=== PATIENT | female | born 1955 | race Caucasian/White ===

== ENCOUNTER → 2019-08-16 08:14 | Outpatient (BNVA) | payer MEDICARE, MEDICAID, SELFPAY | PROVIDERS: Family Provider Family Medicine; PCP Family Medicine; Visit Provider Podiatrist Foot & Ankle Surgery | DX: M79.673 Pain in unspecified foot (principal); E11.42 Type 2 diabetes mellitus with diabetic polyneuropathy; Z79.4 Long term (current) use of insulin; L84 Corns and callosities; D23.72 Other benign neoplasm of skin of left lower limb, including hip | CPT/HCPCS: 88305 ==

== ENCOUNTER → 2019-08-28 10:58 | Outpatient (BNVA) | payer MEDICARE, MEDICAID, SELFPAY | PROVIDERS: Family Provider Family Medicine; PCP Family Medicine; Visit Provider Specialist | DX: G62.9 Polyneuropathy, unspecified (principal); M48.061 Spinal stenosis, lumbar region without neurogenic claudication; E11.40 Type 2 diabetes mellitus with diabetic neuropathy, unspecified; F17.210 Nicotine dependence, cigarettes, uncomplicated | CPT/HCPCS: 99214 ==

== ENCOUNTER → 2019-09-04 13:53 | Outpatient (BNVA) | payer MEDICARE, MEDICAID, SELFPAY | PROVIDERS: Family Provider Family Medicine; PCP Family Medicine; Visit Provider Nurse Practitioner Psychiatric/Mental Health | DX: F31.81 Bipolar II disorder (principal); F43.12 Post-traumatic stress disorder, chronic; F60.3 Borderline personality disorder; F17.210 Nicotine dependence, cigarettes, uncomplicated | CPT/HCPCS: 80164; 99214 ==

== ENCOUNTER 2019-09-20 15:51 | Outpatient (CLI) | payer MEDICARE, MEDICAID, SELFPAY | END 2019-09-20 15:52 | disposition home or self-care (01) | LOC: SPT 16:00 | PROVIDERS: Family Provider Family Medicine; PCP Family Medicine; Visit Provider Podiatrist Foot & Ankle Surgery | DX: L97.522 Non-pressure chronic ulcer of other part of left foot with fat layer exposed (principal) | CPT/HCPCS: L4361 ==

== ENCOUNTER → 2019-11-21 08:10 | Outpatient (BNVA) | payer MEDICARE, MEDICAID, SELFPAY | PROVIDERS: Family Provider Family Medicine; PCP Family Medicine; Visit Provider Nurse Practitioner Psychiatric/Mental Health | DX: F31.81 Bipolar II disorder (principal); F43.12 Post-traumatic stress disorder, chronic; F60.3 Borderline personality disorder; F17.210 Nicotine dependence, cigarettes, uncomplicated; Z79.899 Other long term (current) drug therapy | CPT/HCPCS: 99214 ==

== ENCOUNTER → 2020-01-03 08:18 | Outpatient (BNVA) | payer MEDICARE, MEDICAID, SELFPAY | PROVIDERS: Family Provider Family Medicine; PCP Family Medicine; Visit Provider Nurse Practitioner Psychiatric/Mental Health | DX: F31.81 Bipolar II disorder (principal); F43.12 Post-traumatic stress disorder, chronic; F60.3 Borderline personality disorder; F17.210 Nicotine dependence, cigarettes, uncomplicated; Z79.899 Other long term (current) drug therapy | CPT/HCPCS: 99214 ==

== ENCOUNTER → 2020-01-31 13:07 | Outpatient (BNVA) | payer MEDICARE, MEDICAID, SELFPAY | PROVIDERS: Family Provider Family Medicine; PCP Family Medicine; Visit Provider Nurse Practitioner Psychiatric/Mental Health | DX: F31.81 Bipolar II disorder (principal); F43.12 Post-traumatic stress disorder, chronic; F60.3 Borderline personality disorder; F17.210 Nicotine dependence, cigarettes, uncomplicated; Z79.899 Other long term (current) drug therapy; F41.1 Generalized anxiety disorder | CPT/HCPCS: 99214 ==

== ENCOUNTER → 2020-02-27 13:15 | Outpatient (BNVA) | payer MEDICARE, MEDICAID, SELFPAY | PROVIDERS: Family Provider Family Medicine; PCP Family Medicine; Visit Provider Specialist | DX: E11.42 Type 2 diabetes mellitus with diabetic polyneuropathy (principal) | CPT/HCPCS: 99213 ==

== ENCOUNTER 2020-03-13 12:08 | Outpatient (CLI) | payer MEDICARE, MEDICAID, SELFPAY ==
--- NOTE | 2020-03-13 12:23 | MM_ITS ---
WS: [id number] BILATERAL DIGITAL SCREENING MAMMOGRAPHY WITH CAD CLINICAL INFORMATION: SCREEN HISTORY: Screening mammogram. No current complaints. COMPARISON: December 06, 2018 TECHNIQUE: Bilateral CC and MLO views. FINDINGS: Scattered fibroglandular densities bilaterally. No suspicious focal mass, asymmetry, calcifications, or architectural distortion. No evidence of malignancy. Lucent centered calcifications. Stable intram ammary lymph nodes right axillary tail. MM/[place] [id number] IMPRESSION: BI-RADS: 2-Benign FOLLOW UP: 1 Year Follow-up Recommend return to annual screening mammography.
== END 2020-03-13 12:09 | disposition home or self-care (01) ==
LOC: RADSHAW 12:11
PROVIDERS: PCP Nurse Practitioner Family; Visit Provider Nurse Practitioner Family
DX: Z12.31 Encounter for screening mammogram for malignant neoplasm of breast (principal)
CPT/HCPCS: 77067

== ENCOUNTER → 2020-04-01 09:20 | Outpatient (BNVA) | payer MEDICARE, MEDICAID, SELFPAY | PROVIDERS: PCP Nurse Practitioner Family; Visit Provider Nurse Practitioner Psychiatric/Mental Health | DX: F31.81 Bipolar II disorder (principal); F43.12 Post-traumatic stress disorder, chronic; F60.3 Borderline personality disorder; F17.210 Nicotine dependence, cigarettes, uncomplicated; F41.1 Generalized anxiety disorder | CPT/HCPCS: 99214 ==

== ENCOUNTER → 2020-05-05 08:07 | Outpatient (BNVA) | payer MEDICARE, MEDICAID, SELFPAY | PROVIDERS: PCP Nurse Practitioner Family; Visit Provider Nurse Practitioner Psychiatric/Mental Health | DX: F31.81 Bipolar II disorder (principal); F43.12 Post-traumatic stress disorder, chronic; F60.3 Borderline personality disorder; F17.210 Nicotine dependence, cigarettes, uncomplicated | CPT/HCPCS: 99213 ==

== ENCOUNTER → 2020-06-02 08:25 | Outpatient (BNVA) | payer MEDICARE, MEDICAID, SELFPAY | PROVIDERS: PCP Nurse Practitioner Family; Visit Provider Nurse Practitioner Psychiatric/Mental Health | DX: F31.81 Bipolar II disorder (principal); F43.12 Post-traumatic stress disorder, chronic; F60.3 Borderline personality disorder; F17.210 Nicotine dependence, cigarettes, uncomplicated | CPT/HCPCS: 99213 ==

== ENCOUNTER → 2020-06-30 08:19 | Outpatient (BNVA) | payer MEDICARE, MEDICAID, SELFPAY | PROVIDERS: PCP Nurse Practitioner Family; Visit Provider Nurse Practitioner Psychiatric/Mental Health | DX: F31.81 Bipolar II disorder (principal); F43.12 Post-traumatic stress disorder, chronic; F60.3 Borderline personality disorder; F17.210 Nicotine dependence, cigarettes, uncomplicated | CPT/HCPCS: 99213 ==

== ENCOUNTER → 2020-07-14 09:16 | Outpatient (BNVA) | payer OTHER, SELFPAY | PROVIDERS: PCP Nurse Practitioner Family; Visit Provider Nurse Practitioner Psychiatric/Mental Health | DX: F31.81 Bipolar II disorder (principal) | CPT/HCPCS: 80061; 83036 ==

== ENCOUNTER 2020-07-16 07:25 | Outpatient (CLI) | payer MEDICARE, MEDICAID, SELFPAY ==
--- NOTE | 2020-07-16 07:50 | US_ITS ---
WS: [id number] RENAL ULTRASOUND HISTORY: DECREASED URINATION COMPARISON: None available. TECHNIQUE: 2-D and color Doppler imaging of the kidney submitted. Right kidney: 12.2 cm x 5.6 cm x 4.2 cm. Normal echogenicity with no hydronephrosis or mass. Left kidney: 11.7 cm x 5.9 cm x 5.8 cm. Normal echogenicity with no hydronephrosis or mass. Aorta: Normal. Urinary Bladder: Normal distention. Well distended urinary bladder with no filling defects. US/US renal BI* [id number] IMPRESSION: Normal renal ultrasound.
== END 2020-07-16 07:26 | disposition home or self-care (01) ==
PROVIDERS: PCP Nurse Practitioner Family; Visit Provider Nurse Practitioner Family
DX: R34 Anuria and oliguria (principal)
CPT/HCPCS: 76770

== ENCOUNTER → 2020-08-11 12:59 | Outpatient (BNVA) | payer MEDICARE, MEDICAID, SELFPAY ==
[2020-07-16 16:55] VITALS: BP 105/75; BMI 39.2
== END ==
PROVIDERS: PCP Nurse Practitioner Family; Visit Provider Specialist
DX: E11.42 Type 2 diabetes mellitus with diabetic polyneuropathy (principal); Z79.84 Long term (current) use of oral hypoglycemic drugs; F60.3 Borderline personality disorder; M48.061 Spinal stenosis, lumbar region without neurogenic claudication; L84 Corns and callosities; G56.03 Carpal tunnel syndrome, bilateral upper limbs; F17.210 Nicotine dependence, cigarettes, uncomplicated
CPT/HCPCS: 99213; 99214

== ENCOUNTER → 2020-08-27 07:51 | Outpatient (BNVA) | payer MEDICARE, SELFPAY ==
[2020-07-16 16:55] VITALS: BP 105/75; BMI 39.2
== END ==
PROVIDERS: PCP Nurse Practitioner Family; Visit Provider Nurse Practitioner Psychiatric/Mental Health
DX: F31.81 Bipolar II disorder (principal); F43.12 Post-traumatic stress disorder, chronic; F60.3 Borderline personality disorder; F17.210 Nicotine dependence, cigarettes, uncomplicated; F41.1 Generalized anxiety disorder
CPT/HCPCS: 99214

== ENCOUNTER → 2020-09-24 08:57 | Outpatient (BNVA) | payer MEDICARE, MEDICAID, SELFPAY ==
[2020-07-16 16:55] VITALS: BP 105/75; BMI 39.2
== END ==
PROVIDERS: PCP Nurse Practitioner Family; Visit Provider Nurse Practitioner Psychiatric/Mental Health
DX: F31.81 Bipolar II disorder (principal); F43.12 Post-traumatic stress disorder, chronic; F60.3 Borderline personality disorder; F17.210 Nicotine dependence, cigarettes, uncomplicated; Z79.899 Other long term (current) drug therapy; F41.1 Generalized anxiety disorder
CPT/HCPCS: 99214

== ENCOUNTER → 2020-10-06 10:51 | Outpatient (BNVA) | payer MEDICARE, SELFPAY ==
[2020-07-16 16:55] VITALS: BP 105/75; BMI 39.2
== END ==
PROVIDERS: PCP Nurse Practitioner Family; Visit Provider Nurse Practitioner Psychiatric/Mental Health
DX: Z79.899 Other long term (current) drug therapy (principal)
CPT/HCPCS: 80053; 80164

== ENCOUNTER → 2020-10-24 07:45 | Outpatient (BNVA) | payer MEDICARE, MEDICAID, SELFPAY ==
[2020-07-16 16:55] VITALS: BP 105/75; BMI 39.2
== END ==
PROVIDERS: PCP Nurse Practitioner Family; Visit Provider Nurse Practitioner Psychiatric/Mental Health
DX: F31.81 Bipolar II disorder (principal); F43.12 Post-traumatic stress disorder, chronic; F60.3 Borderline personality disorder; F17.210 Nicotine dependence, cigarettes, uncomplicated; F33.2 Major depressive disorder, recurrent severe without psychotic features
CPT/HCPCS: 99214

== ENCOUNTER → 2020-11-25 09:33 | Outpatient (BNVA) | payer MEDICARE, MEDICAID, SELFPAY ==
[2020-07-16 16:55] VITALS: BP 105/75; BMI 39.2
== END ==
PROVIDERS: PCP Nurse Practitioner Family; Visit Provider Nurse Practitioner Psychiatric/Mental Health
DX: F31.81 Bipolar II disorder (principal); F43.12 Post-traumatic stress disorder, chronic; F60.3 Borderline personality disorder; F17.210 Nicotine dependence, cigarettes, uncomplicated
CPT/HCPCS: 99214

== ENCOUNTER → 2021-01-07 08:02 | Outpatient (BNVA) | payer MEDICARE, MEDICAID, SELFPAY ==
[2020-07-16 16:55] VITALS: BP 105/75; BMI 39.2
== END ==
PROVIDERS: PCP Nurse Practitioner Family; Visit Provider Nurse Practitioner Psychiatric/Mental Health
DX: F31.81 Bipolar II disorder (principal); F43.12 Post-traumatic stress disorder, chronic; F60.3 Borderline personality disorder; F17.210 Nicotine dependence, cigarettes, uncomplicated
CPT/HCPCS: 99214

== ENCOUNTER → 2021-02-10 12:47 | Outpatient (BNVA) | payer MEDICARE, MEDICAID, SELFPAY ==
[2020-07-16 16:55] VITALS: BP 105/75; BMI 39.2
== END ==
PROVIDERS: PCP Nurse Practitioner Family; Visit Provider Specialist
DX: G56.03 Carpal tunnel syndrome, bilateral upper limbs (principal); E11.42 Type 2 diabetes mellitus with diabetic polyneuropathy; E11.621 Type 2 diabetes mellitus with foot ulcer; L97.522 Non-pressure chronic ulcer of other part of left foot with fat layer exposed; Z79.84 Long term (current) use of oral hypoglycemic drugs; Z71.89 Other specified counseling; F17.210 Nicotine dependence, cigarettes, uncomplicated
CPT/HCPCS: 99213; 99214

== ENCOUNTER → 2021-03-09 07:07 | Outpatient (BNVA) | payer MEDICARE, MEDICAID, SELFPAY ==
[2020-07-16 16:55] VITALS: BP 105/75; BMI 39.2
== END ==
PROVIDERS: PCP Nurse Practitioner Family; Visit Provider Nurse Practitioner Psychiatric/Mental Health
DX: F31.81 Bipolar II disorder (principal); F43.12 Post-traumatic stress disorder, chronic; F60.3 Borderline personality disorder; F17.210 Nicotine dependence, cigarettes, uncomplicated
CPT/HCPCS: 99214

== ENCOUNTER → 2021-03-31 11:35 | Outpatient (BNVA) | payer MEDICARE, MEDICAID, SELFPAY ==
[2020-07-16 16:55] VITALS: BP 105/75; BMI 39.2
== END ==
PROVIDERS: PCP Nurse Practitioner Family; Visit Provider Podiatrist Foot & Ankle Surgery
DX: M79.671 Pain in right foot (principal)
CPT/HCPCS: 73630

== ENCOUNTER → 2021-04-06 07:22 | Outpatient (BNVA) | payer MEDICARE, MEDICAID, SELFPAY ==
[2020-07-16 16:55] VITALS: BP 105/75; BMI 39.2
== END ==
PROVIDERS: PCP Nurse Practitioner Family; Visit Provider Nurse Practitioner Psychiatric/Mental Health
DX: F31.81 Bipolar II disorder (principal); F43.12 Post-traumatic stress disorder, chronic; F60.3 Borderline personality disorder; F17.210 Nicotine dependence, cigarettes, uncomplicated; Z79.899 Other long term (current) drug therapy
CPT/HCPCS: 99214

== ENCOUNTER → 2021-05-04 07:28 | Outpatient (BNVA) | payer MEDICARE, MEDICAID, SELFPAY ==
[2020-07-16 16:55] VITALS: BP 105/75; BMI 39.2
== END ==
PROVIDERS: PCP Nurse Practitioner Family; Visit Provider Nurse Practitioner Psychiatric/Mental Health
DX: F31.81 Bipolar II disorder (principal); F43.12 Post-traumatic stress disorder, chronic; F60.3 Borderline personality disorder; F17.210 Nicotine dependence, cigarettes, uncomplicated; Z79.899 Other long term (current) drug therapy
CPT/HCPCS: 99214

== ENCOUNTER 2021-05-06 09:48 | Outpatient (CLI) | payer MEDICARE, MEDICAID, SELFPAY ==
[2020-07-16 16:55] VITALS: BP 105/75; BMI 39.2
== END 2021-05-06 09:49 | disposition home or self-care (01) ==
LOC: WOUND 09:49
PROVIDERS: PCP Nurse Practitioner Family; Visit Provider Thoracic Surgery (Cardiothoracic Vascular Surgery)
DX: E11.621 Type 2 diabetes mellitus with foot ulcer (principal); L97.521 Non-pressure chronic ulcer of other part of left foot limited to breakdown of skin; F17.210 Nicotine dependence, cigarettes, uncomplicated
CPT/HCPCS: 80053; 80164; 83036; 97597; G0463

== ENCOUNTER 2021-05-13 13:50 | Outpatient (CLI) | payer MEDICARE, MEDICAID, SELFPAY ==
[2020-07-16 16:55] VITALS: BP 105/75; BMI 39.2
== END 2021-05-13 13:51 | disposition home or self-care (01) ==
LOC: WOUND 13:51
PROVIDERS: PCP Nurse Practitioner Family; Visit Provider Thoracic Surgery (Cardiothoracic Vascular Surgery)
DX: Z09 Encounter for follow-up examination after completed treatment for conditions other than malignant neoplasm (principal); F17.210 Nicotine dependence, cigarettes, uncomplicated
CPT/HCPCS: 99212

== ENCOUNTER → 2021-05-19 14:05 | Outpatient (BNVA) | payer MEDICARE, MEDICAID, SELFPAY ==
[2020-07-16 16:55] VITALS: BP 105/75; BMI 39.2
== END ==
PROVIDERS: PCP Nurse Practitioner Family; Visit Provider Social Worker
DX: F60.3 Borderline personality disorder (principal); F43.12 Post-traumatic stress disorder, chronic
CPT/HCPCS: 90834

== ENCOUNTER → 2021-06-03 08:10 | Outpatient (BNVA) | payer MEDICARE, MEDICAID, SELFPAY ==
[2020-07-16 16:55] VITALS: BP 105/75; BMI 39.2
== END ==
PROVIDERS: PCP Nurse Practitioner Family; Visit Provider Nurse Practitioner Psychiatric/Mental Health
DX: F31.81 Bipolar II disorder (principal); F43.12 Post-traumatic stress disorder, chronic; F60.3 Borderline personality disorder; F17.210 Nicotine dependence, cigarettes, uncomplicated; Z79.899 Other long term (current) drug therapy
CPT/HCPCS: 99214

== ENCOUNTER → 2021-06-04 14:20 | Outpatient (BNVA) | payer MEDICARE, MEDICAID, SELFPAY ==
[2020-07-16 16:55] VITALS: BP 105/75; BMI 39.2
== END ==
PROVIDERS: PCP Nurse Practitioner Family; Visit Provider Social Worker
DX: F60.3 Borderline personality disorder (principal); F43.12 Post-traumatic stress disorder, chronic
CPT/HCPCS: 90834

== ENCOUNTER → 2021-06-18 14:26 | Outpatient (BNVA) | payer MEDICARE, MEDICAID, SELFPAY ==
[2020-07-16 16:55] VITALS: BP 105/75; BMI 39.2
== END ==
PROVIDERS: PCP Nurse Practitioner Family; Visit Provider Social Worker
DX: F60.3 Borderline personality disorder (principal); F43.12 Post-traumatic stress disorder, chronic
CPT/HCPCS: 90837; 90834

== ENCOUNTER → 2021-07-09 13:42 | Outpatient (BNVA) | payer MEDICARE, MEDICAID, SELFPAY ==
[2020-07-16 16:55] VITALS: BP 105/75; BMI 39.2
== END ==
PROVIDERS: PCP Nurse Practitioner Family; Visit Provider Nurse Practitioner Psychiatric/Mental Health
DX: F31.81 Bipolar II disorder (principal); F43.12 Post-traumatic stress disorder, chronic; F60.3 Borderline personality disorder; F17.210 Nicotine dependence, cigarettes, uncomplicated; Z79.899 Other long term (current) drug therapy
CPT/HCPCS: 99214

== ENCOUNTER → 2021-07-10 14:12 | Outpatient (BNVA) | payer MEDICARE, MEDICAID, SELFPAY ==
[2020-07-16 16:55] VITALS: BP 105/75; BMI 39.2
== END ==
PROVIDERS: PCP Nurse Practitioner Family; Visit Provider Social Worker
DX: F60.3 Borderline personality disorder (principal); F43.12 Post-traumatic stress disorder, chronic
CPT/HCPCS: 90837; 90834

== ENCOUNTER → 2021-07-23 07:58 | Outpatient (BNVA) | payer MEDICARE, MEDICAID, SELFPAY ==
[2020-07-16 16:55] VITALS: BP 105/75; BMI 39.2
== END ==
PROVIDERS: PCP Nurse Practitioner Family; Visit Provider Social Worker
DX: F60.3 Borderline personality disorder (principal); F43.12 Post-traumatic stress disorder, chronic
CPT/HCPCS: 90834

== ENCOUNTER → 2021-08-05 07:51 | Outpatient (BNVA) | payer MEDICARE, MEDICAID, SELFPAY ==
[2020-07-16 16:55] VITALS: BP 105/75; BMI 39.2
== END ==
PROVIDERS: PCP Nurse Practitioner Family; Visit Provider Social Worker
DX: F60.3 Borderline personality disorder (principal); F43.12 Post-traumatic stress disorder, chronic
CPT/HCPCS: 90837; 90834

== ENCOUNTER → 2021-08-14 07:41 | Outpatient (BNVA) | payer MEDICARE, MEDICAID, SELFPAY ==
[2020-07-16 16:55] VITALS: BP 105/75; BMI 39.2
== END ==
PROVIDERS: PCP Nurse Practitioner Family; Visit Provider Nurse Practitioner Psychiatric/Mental Health
DX: F31.81 Bipolar II disorder (principal); F43.12 Post-traumatic stress disorder, chronic; F60.3 Borderline personality disorder; F17.210 Nicotine dependence, cigarettes, uncomplicated; Z79.899 Other long term (current) drug therapy
CPT/HCPCS: 99214

== ENCOUNTER → 2021-08-17 11:35 | Outpatient (BNVA) | payer MEDICARE, MEDICAID, SELFPAY ==
[2020-07-16 16:55] VITALS: BP 105/75; BMI 39.2
== END ==
PROVIDERS: PCP Nurse Practitioner Family; Visit Provider Social Worker
DX: F60.3 Borderline personality disorder (principal); F43.12 Post-traumatic stress disorder, chronic
CPT/HCPCS: 90837; 90834

== ENCOUNTER 2021-08-24 08:36 | Outpatient (CLI) | payer MEDICARE, MEDICAID, SELFPAY ==
[2020-07-16 16:55] VITALS: BP 105/75; BMI 39.2
--- NOTE | 2021-08-24 08:45 | MM_ITS ---
WS: [email or web address] Exam: [place] [id number] Date/Time of Exam: 08/24/2021 8:48 AM Reason For Exam: SCREENING VIEWS: MLO and CC views both breasts. Comparison made with prior exam of 06/27/2017, 12/06/2018 and 03/13/2020. Findings: There was no sign of mass, architectural distortion or suspicious calcification in either breast. Sta ble appearing nodular densities in both breasts scattered fibroglandular densities MM/[place] [id number] Impression: BI-RADS: 2-Benign FOLLOW-UP: 1 Year Follow-up This mammogram was also analyzed by the Computer Aided Detection System R2 Imag e Assistant Professor Of Art.
== END 2021-08-24 08:37 | disposition home or self-care (01) ==
LOC: RADSHAW 08:40
PROVIDERS: PCP Nurse Practitioner Family; Visit Provider Nurse Practitioner Family
DX: Z12.31 Encounter for screening mammogram for malignant neoplasm of breast (principal)
CPT/HCPCS: 77067

== ENCOUNTER → 2021-09-01 07:52 | Outpatient (BNVA) | payer MEDICARE, MEDICAID, SELFPAY ==
[2020-07-16 16:55] VITALS: BP 105/75; BMI 39.2
== END ==
PROVIDERS: PCP Family Medicine Adult Medicine; Visit Provider Social Worker
DX: F43.12 Post-traumatic stress disorder, chronic (principal); F60.3 Borderline personality disorder
CPT/HCPCS: 90837; 90834

== ENCOUNTER → 2021-09-16 08:24 | Outpatient (BNVA) | payer MEDICARE, MEDICAID, SELFPAY ==
[2020-07-16 16:55] VITALS: BP 105/75; BMI 39.2
== END ==
PROVIDERS: PCP Family Medicine Adult Medicine; Visit Provider Social Worker
DX: F31.81 Bipolar II disorder (principal); F60.3 Borderline personality disorder
CPT/HCPCS: 90832

== ENCOUNTER → 2021-09-17 08:14 | Outpatient (BNVA) | payer MEDICARE, MEDICAID, SELFPAY ==
[2020-07-16 16:55] VITALS: BP 105/75; BMI 39.2
== END ==
PROVIDERS: PCP Family Medicine Adult Medicine; Visit Provider Nurse Practitioner Psychiatric/Mental Health
DX: Z79.899 Other long term (current) drug therapy (principal); F31.81 Bipolar II disorder; F43.12 Post-traumatic stress disorder, chronic; F17.210 Nicotine dependence, cigarettes, uncomplicated; F60.3 Borderline personality disorder
CPT/HCPCS: 99214

== ENCOUNTER 2021-10-07 12:12 | Outpatient (CLI) | payer MEDICARE, MEDICAID, SELFPAY ==
[2020-07-16 16:55] VITALS: BP 105/75; BMI 39.2
--- NOTE | 2021-10-07 | XR_ITS ---
WS: [email or web address] Pelvis with 2 views of each hip, 10/07/2021 Clinical Data: bilateral hip pain Comparison: Bilateral hips, 07/11/2017. Findings: The hips show no fractures or dislocations. The hip show no narrowing, erosion, sclerosis or fragmentation of the femoral heads. The SI joints and pubic symphysis are unremarkable. There are surgical clips in the pelvis. Dictated By: Soheila Ramirez MD Signed By: Signed Date/Time: DD/ 1330 [email or web address]
--- NOTE | 2021-10-07 06:47 | XR_ITS ---
WS: [email or web address] Pelvis with 2 views of each hip, 10/07/2021 Clinical Data: bilateral hip pain Comparison: Bilateral hips, 07/11/2017. Findings: The hips show no fractures or dislocations. The hip show no narrowing, erosion, sclerosis or fragment ation of the femoral heads. The SI joints and pubic symphysis are unremarkable. There are surgical cl ips in the pelvis. XR/XR hip BI m 5V wo/w pel* [id number] Impression: 1. Negative bilateral hips. 2. Negative pelvis.
--- NOTE | 2021-10-07 12:43 | XR_ITS ---
WS: [email or web address] Lumbar spine, 3 views, 10/07/2021 Clinical Data: chronic back pain, DDD Comparison: Lumbar spine, 11/08/2017. Findings: No compression fractures are seen. There is a minimal dextroscoliosis of the lumbar spine. There is a dextroscoliosis of the lumbar spine with a 0.4 cm retrolisthesis of L2 on L3. Anterior osteophyte f ormation is present from L1 through L3. There is degenerative disc narrowing at L1-L2 and L2-L3. The transverse processes and SI joints are normal. There is calcification of the wall of the abdominal aorta but no aneurysm. There are surgical clips i n the true pelvis. XR/XR lumbar spine 2-3V* [id number] Impression: 1. Dextroscoliosis of lumbar spine with a 0.4 cm retrolisthesis of L2 on L3. 2. Degenerative disc narrowing at L1-L2 and L2-L3 with anterior osteophytes.
--- NOTE | 2021-10-07 12:43 | XR_ITS ---
WS: [email or web address] Pelvis with 2 views of each hip, 10/07/2021 Clinical Data: bilateral hip pain Comparison: Bilateral hips, 07/11/2017. Findings: The hips show no fractures or dislocations. The hip show no narrowing, erosion, sclerosis or fragment ation of the femoral heads. The SI joints and pubic symphysis are unremarkable. There are surgical cl ips in the pelvis.
== END 2021-10-07 12:13 | disposition home or self-care (01) ==
LOC: RAD 12:29
PROVIDERS: PCP Family Medicine Adult Medicine; Visit Provider Family Medicine Adult Medicine
DX: M25.551 Pain in right hip (principal); M25.552 Pain in left hip; M54.50 Low back pain, unspecified; M41.86 Other forms of scoliosis, lumbar region; M25.78 Osteophyte, vertebrae; I12.9 Hypertensive chronic kidney disease with stage 1 through stage 4 chronic kidney disease, or unspecified chronic kidney disease; N18.2 Chronic kidney disease, stage 2 (mild); E11.69 Type 2 diabetes mellitus with other specified complication; E66.9 Obesity, unspecified; E78.5 Hyperlipidemia, unspecified
CPT/HCPCS: 72100; 73522; 73523; 80053; 80061; 83036; 85025

== ENCOUNTER 2021-11-25 08:27 | Outpatient (CLI) | payer MEDICARE, MEDICAID, SELFPAY ==
[2020-07-16 16:55] VITALS: BP 105/75; BMI 39.2
--- NOTE | 2021-11-25 08:45 | MR_ITS ---
WS: [id number] MRI LUMBAR SPINE NONCONTRAST HISTORY: Spinal stenosis, chronic low back pain and bilateral hip pain. COMPARISON: 07/26/2017 TECHNIQUE: Sagittal and axial multisequence imaging is submitted. Lumbar curvature. Increase in the lumbar lordosis. L1 and L2 retrolisthesis by 4.5 mm. Similar to the prior study. Mild disc desiccation and narrowing. Small hypertrophic osteophytes along the endplates. No fracture or marrow edema. Conus terminates normally at L1-2 disc level. L1-L2: Mild disc bulging and facet arthritis. No significant stenosis. L2-L3: Mild osteophytic ridging and disc bulging with ligamentum flavum hypertrophy and facet arthrit is. Moderate stenosis of the LEFT foramen with encroachment on the exiting L2 nerve root. No central stenosis. L3-L4: Mild annular disc bulge with ligamentum flavum and facet arthritis. Mild bilateral foraminal s tenosis. L4-L5: Advanced facet joint arthritis. Ligamentum flavum and facet arthritis. There is mild bilateral foraminal stenosis. L5-S1: Disc bulging with moderate facet joint arthritis. Mild ligamentum flavum disease. There is marilu y minimal contact on the exiting L5 nerve roots. Only mild foraminal stenosis. Small amount of edema in the paraspinal soft tissues at L3-4 probably from synovitis at the facet lorrie nts. LEFT renal cyst measures 1.7 cm. Smaller cortical cysts in the RIGHT kidney. MR/MR lumbar spine wo con* [id number] IMPRESSION: 1. Increase in the lumbar lordosis similar to the prior study. 2. Moderate stenosis LEFT foramen with encroachment on the exiting L2 nerve ro ot at L2-3. 3. Mild bilateral foraminal stenosis at L3-4, L4-5 and L5-S1. Minimal contact on the exiting L5 nerve roots.
== END 2021-11-25 08:28 | disposition home or self-care (01) ==
LOC: RAD 08:30
PROVIDERS: PCP Family Medicine Adult Medicine; Visit Provider Physician Assistant
DX: M48.062 Spinal stenosis, lumbar region with neurogenic claudication (principal); M54.50 Low back pain, unspecified; M79.604 Pain in right leg; M79.605 Pain in left leg
CPT/HCPCS: 72148

== ENCOUNTER → 2021-12-23 09:32 | Outpatient (BNVA) | payer MEDICARE, MEDICAID, SELFPAY ==
[2020-07-16 16:55] VITALS: BP 105/75; BMI 39.2
== END ==
PROVIDERS: PCP Family Medicine Adult Medicine; Visit Provider Social Worker
DX: F31.81 Bipolar II disorder (principal); F43.12 Post-traumatic stress disorder, chronic; F60.3 Borderline personality disorder
CPT/HCPCS: 90832

== ENCOUNTER → 2022-01-14 14:33 | Outpatient (BNVA) | payer MEDICARE, MEDICAID, SELFPAY ==
[2020-07-16 16:55] VITALS: BP 105/75; BMI 39.2
== END ==
PROVIDERS: PCP Family Medicine Adult Medicine; Visit Provider Physician Assistant
DX: M25.551 Pain in right hip (principal); M47.816 Spondylosis without myelopathy or radiculopathy, lumbar region; M53.3 Sacrococcygeal disorders, not elsewhere classified; M16.11 Unilateral primary osteoarthritis, right hip
CPT/HCPCS: 73502; 99213

== ENCOUNTER → 2022-02-16 11:46 | Outpatient (BNVA) | payer MEDICARE, MEDICAID, SELFPAY ==
[2020-07-16 16:55] VITALS: BP 105/75; BMI 39.2
== END ==
PROVIDERS: PCP Family Medicine Adult Medicine; Visit Provider Family Medicine Adult Medicine
DX: E11.22 Type 2 diabetes mellitus with diabetic chronic kidney disease; I12.9 Hypertensive chronic kidney disease with stage 1 through stage 4 chronic kidney disease, or unspecified chronic kidney disease; N18.2 Chronic kidney disease, stage 2 (mild); E78.5 Hyperlipidemia, unspecified; E11.69 Type 2 diabetes mellitus with other specified complication; E66.9 Obesity, unspecified; Z13.6 Encounter for screening for cardiovascular disorders; M15.9 Polyosteoarthritis, unspecified; R60.0 Localized edema; F41.9 Anxiety disorder, unspecified; F32.A Depression, unspecified; E78.2 Mixed hyperlipidemia
CPT/HCPCS: 80053; 80061; 83036; 84443; 85025

== ENCOUNTER → 2022-04-13 13:20 | Outpatient (BNVA) | payer MEDICARE, MEDICAID, SELFPAY ==
[2020-07-16 16:55] VITALS: BP 105/75; BMI 39.2
== END ==
PROVIDERS: PCP Family Medicine Adult Medicine; Visit Provider Physician Assistant
DX: M48.062 Spinal stenosis, lumbar region with neurogenic claudication (principal); M51.34 Other intervertebral disc degeneration, thoracic region; G56.03 Carpal tunnel syndrome, bilateral upper limbs; M25.561 Pain in right knee; M25.562 Pain in left knee; M85.88 Other specified disorders of bone density and structure, other site
CPT/HCPCS: 72072; 73110; 73560; 73565

== ENCOUNTER 2022-04-13 14:24 | Outpatient (CLI) | payer MEDICARE, MEDICAID, SELFPAY ==
[2020-07-16 16:55] VITALS: BP 105/75; BMI 39.2
== END 2022-04-13 14:25 | disposition home or self-care (01) ==
LOC: SPT 14:26
PROVIDERS: PCP Family Medicine Adult Medicine; Visit Provider Physician Assistant
DX: M25.531 Pain in right wrist (principal)
CPT/HCPCS: 97760; 99214; L3908

== ENCOUNTER → 2022-04-29 08:35 | Outpatient (BNVA) | payer MEDICARE, MEDICAID, SELFPAY ==
[2020-07-16 16:55] VITALS: BP 105/75; BMI 39.2
== END ==
PROVIDERS: PCP Family Medicine Adult Medicine; Visit Provider Anesthesiology Pain Medicine
DX: G89.29 Other chronic pain (principal); M48.062 Spinal stenosis, lumbar region with neurogenic claudication; M51.34 Other intervertebral disc degeneration, thoracic region; M47.816 Spondylosis without myelopathy or radiculopathy, lumbar region; M53.3 Sacrococcygeal disorders, not elsewhere classified; M15.9 Polyosteoarthritis, unspecified; M79.605 Pain in left leg; M79.604 Pain in right leg
CPT/HCPCS: 99205

== ENCOUNTER → 2022-05-13 12:52 | Outpatient (BNVA) | payer MEDICARE, MEDICAID, SELFPAY ==
[2020-07-16 16:55] VITALS: BP 105/75; BMI 39.2
== END ==
PROVIDERS: PCP Family Medicine Adult Medicine; Visit Provider Anesthesiology Pain Medicine
DX: G89.29 Other chronic pain (principal); M47.816 Spondylosis without myelopathy or radiculopathy, lumbar region; F17.210 Nicotine dependence, cigarettes, uncomplicated
CPT/HCPCS: 64493; 64494; 64495; J3490

== ENCOUNTER → 2022-05-24 13:44 | Outpatient (BNVA) | payer MEDICARE, MEDICAID, OTHER, SELFPAY ==
[2020-07-16 16:55] VITALS: BP 105/75; BMI 39.2
== END ==
PROVIDERS: PCP Family Medicine Adult Medicine; Visit Provider Nurse Practitioner Psychiatric/Mental Health
DX: Z79.899 Other long term (current) drug therapy (principal); F31.81 Bipolar II disorder; F43.12 Post-traumatic stress disorder, chronic; F60.3 Borderline personality disorder; F17.210 Nicotine dependence, cigarettes, uncomplicated
CPT/HCPCS: 80053; 80164

== ENCOUNTER 2022-05-28 15:13 | Observation (INO) | payer MEDICARE, MEDICAID, SELFPAY ==
[2020-07-16 16:55] VITALS: BP 105/75; BMI 39.2
[2022-05-28] VITALS (23 sets, daily range): BP systolic 67–101; BP diastolic 38–71; PULSE 78–99; RESP 12–24; TEMP 36.4–36.9; O2SAT 88–97; BMI 36.5; BMI 38.5
--- NOTE | 2022-05-28 15:13 | ED_ITS ---
HPI - SOB/Dyspnea General: Chief Complaint: Syncope Stated Complaint: respiratory distress, syncope, wheezing History of Present Illness: HPI Narrative: Ms. Camacho is a 66-year-old lady with complex past medical history presents to the emergency department due to abnormal neurologic event and fall. She says that she was standing in her living room and felt some weird feeling in her head and then her legs gave out after she stiffened and she fell backwards. She denies losing consciousness with this or seizure witnessed activity. She denies similar episodes in the past. Currently still feels abnormal though has difficulty articulating exactly how. Intensity symptoms is moderate to severe. Course is improved somewhat since worst. No other specific changes in health, exacerbating, or alleviating factors identified. Onset (ago): minute(s) Timing: improved Known history of: COPD, diabetes and other Review of Systems General: Reports: 10 or more systems reviewed and unremarkable except in HPI and below PFSH ED PFSH: Medical History Anxiety and depression Bilateral leg edema Bilateral lower leg cellulitis Bipolar affective Bipolar II disorder Borderline personality disorder Callus of foot Carpal tunnel syndrome, bilateral upper limbs Chronic kidney disease, stage 2, mildly decreased GFR Chronic post-traumatic stress disorder Chronic ulcer of great toe of right foot with fat layer exposed Chronic ulcer of left foot due to diabetes mellitus COPD (chronic obstructive pulmonary disease) Diabetes mellitus type 2 in obese Diabetic polyneuropathy Dyslipidemia Foreign body in foot, right GERD (gastroesophageal reflux disease) HTN (hypertension) Insomnia Low back pain radiating to both legs Nicotine dependence, cigarettes, uncomplicated Non-pressure chronic ulcer of other part of left foot with fat layer exposed DANA (obstructive sleep apnea) Osteoarthritis involving multiple joints on both sides of body DDD of low back, Bilateral Hips, knees and arms Palpitations Pre-ulcerative calluses Psychiatric care Restless leg Screening for colon cancer Surgical History H/O arthroscopy of left knee H/O section History of colonoscopy (05/21/15) Hx of appendectomy Hx of tonsillectomy Family History Mother Dementia Diabetes Hypertension Sister Psychiatric illness Other Cancer Denies family history of Clotting disorder Hyperlipidemia Chronic kidney disease (CKD) Suicide Anesthesia complication Family history of premature coronary artery disease Lung disease Stroke Social History Smoking and tobacco status: current every day smoker (1/2 ppd) cigarettes Packs smoked per day: 1 Second hand smoke exposure: Yes Smoking risk assessment/counseling performed?: Yes Alcohol intake: former Caregiver/support person: Yes Lives independently: Yes Housing: Apartment Current occupational status: retired History of recent travel: No Current gender identity: Female Physical Exam Const: COMMON NORMALS: patient oriented x3 and alert GENERAL APPEARANCE: cooperative and well developed HENMT: COMMON NORMALS: normocephalic and atraumatic HEAD & SCALP: normocephalic and atraumatic Eye: COMMON NORMALS: conjunctivae normal CONJUNCTIVA: Yes conjunctivae normal SCLERA: sclerae normal Neck/C-Spine: COMMON NORMALS: supple GENERAL: Yes trachea midline Resp: COMMON NORMALS: clear to auscultation bilaterally EFFORT & INSPECTION: Yes able to speak in complete sentences AUSCULTATION: clear to auscultation bilaterally Cardio: COMMON NORMALS: regular rate and regular rhythm RATE: regular rate RHYTHM: regular rhythm GI: COMMON NORMALS: Soft to palpation PALPATION: Yes Soft to palpation and No Tenderness to palpation present (GI) Extremity: GENERAL: Yes normal exam except as noted and No edema Neuro: COMMON NORMALS: patient oriented x3, CN's II-XII intact bilaterally, moves all extremities, no focal motor deficits and no sensory deficits noted SENSORIUM/ORIENTATION: Yes alert and No Orientation impaired Psych: COMMON NORMALS: mental status grossly normal and Normal thought process present THOUGHT PROCESS: Normal thought process present Course ED course: - Patient was seen and evaluated by me at bedside - Patient placed on cardiac monitors, IV access obtained - Initial evaluation notable for exam as above. Patient is hypotensive though responsive adequately and IV fluids ordered. - Labs and xrays personally interpreted by me - Labs notable for leukocytosis, normocytic anemia. Metabolic panel with evidence of ALYSSA and dehydration likely. Initial troponin mildly elevated with repeat pending at time of admission. Urinalysis pending at time of admission. - Given leukocytosis dose of empiric antibiotic given - Imaging notable for no lobar consolidation or pneumothorax on chest x-ray. CT head and neck (unfortunately ordered before creatinine resulted) without large vessel occlusion or significant stenosis to explain syncope. CT abdomen and pelvis without evidence of acute obstructive uropathy. - Upon serial reexamination after treatment the patient was mildly improved though still low blood pressures and a second fluid bolus was ordered which did continue to improve blood pressure. - Based on patient history, evaluation, and testing as interpreted the most likely cause of the patient's condition is hypotension resulting in syncope/abnormal neurologic event possibly related to dehydration with evidence of significant ALYSSA. - The results of ED evaluation were discussed with the patient including plan for admission due to requirement for level of care not available if discharged to prevent significant worsening/deterioration. - Admitting service was contacted and Dr Lo with the hospitalist service agreed to admit the patient - Patient was admitted without further deterioration or significant events. Note: Click bubbles or prepopulated alfredo in note writing are used for assistance with data collection and billing and are inherently more limited than narrative and other text portions of this note. Please use narrative for additional clinical history and defer to narrative/free test for any case of contradictory information. If information appears in only free text or click bubble it should be considered present or absent as reported. Please contact note magazine writer for clarifications of clinical information or contradictory information. MDM is a brief summary, contradictory or erroneous seeming information should be clarified and full note should be reviewed. Vital Signs: Vital signs: Vital Signs Temperature 97.6 F 05/28/22 18:33 Pulse Rate 80 05/28/22 21:03 Respiratory Rate 14 05/28/22 21:03 Blood Pressure 101/62 05/28/22 19:50 Pulse Oximetry 97 05/28/22 21:03 Oxygen Delivery Me thod 05/28/22 21:03 Oxygen Flow Rate 1 05/28/22 21:03 MDM - SOB/Dyspnea Medical Decision Making 66-year-old lady presenting with syncope and hypotension. Etiology is mildly u ncertain though perhaps dehydration is a contributing factor as the patient reports poor p.o. intake. Significant ALYSSA noted on laboratory studies. Admitted for further management to ICU. Medical Records I reviewed the patient's medical records. Lab Data I reviewed the patient's lab results. : 05/28/22 15:15 05/28/22 15:15 Labs/Radiology: Radiology Impressions Chest X-Ray 05/28/22 15:14 Impression: Negative chest. Head/Neck CTA 05/28/22 15:57 IMPRESSION: 1. No large artery occlusion or stenosis. 2. Congenitally small vertebral and basilar arteries. IMPRESSION: 1. No large artery occlusion or stenosis. REFERENCES: NASCET CRITERIA. The degree of stenosis in the cervical segment of the internal carotid artery is based on NASCET criteria. Normal is no stenosis. Mild is less than 50% stenosis. Moderate is 50-69% stenosis. Severe is 70% to 99% stenosis. Total occlusion is no detectable patent lumen. Abdomen/Pelvis CT 05/28/22 16:44 IMPRESSION: 1. Negative for acute inflammatory process in the abdomen or pelvis. 2. Equivocal air in the pleural space anterior to the heart seen on the 2 upper most images, consider further evaluation with chest CT if concern for pneumothorax exists. 3. Bibasilar atelectasis. 4. Left adrenal 21 mm indeterminate nodule again seen similar to prior exam, dedicated nonemergent adrenal imaging could further evaluate this. 5. Constipation. 6. Liver is somewhat enlarged. Chest CT 05/28/22 18:13 IMPRESSION: 1. Bibasilar atelectasis versus minimal infiltrate. 2. Mild cardiomegaly. 3. Very minimal coronary artery atherosclerotic calcifications. 4. Right upper lobe 5.5 mm partially calcified nodule likely reflects a benign granuloma. 5. Left adrenal nodule again partially visualized, please refer to same-day CT abdomen and pelvis for further discussion. Laboratory Results WBC 13.3 10^3/uL (4.0-10.0) H 05/28/22 15:15 RBC 3.80 10^6/uL (4.1-5.3) L 05/28/22 15:15 Hgb 11.4 g/dL (11.5-15.3) L 05/28/22 15:15 Hct 34.6 % (37.0-47.0) L 05/28/22 15:15 MCV 91.1 fl (81-99) 05/28/22 15:15 MCH 30.0 pg (28.0-34.0) 05/28/22 15:15 MCHC 32.9 g/dL (30.0-36.0) 05/28/22 15:15 RDW 15.7 % (12.1-15.1) H 05/28/22 15:15 Plt Count 389 10^3/cmm (130-400) 05/28/22 15:15 MPV 9.8 fL (7.4-10.4) 05/28/22 15:15 Neut % (Auto) 62.3 % 05/28/22 15:15 Lymph % (Auto) 26.5 % 05/28/22 15:15 Coffey % (Auto) 8.1 % 05/28/22 15:15 Eos % (Auto) 1.6 % 05/28/22 15:15 Baso % (Auto) 0.8 % 05/28/22 15:15 Neut # (Auto) 8.28 10^3/uL (1.8-7.7) H 05/28/22 15:15 Lymph # (Auto) 3.5 10^3/uL (0.8-4.8) 05/28/22 15:15 Coffey # (Auto) 1.1 10^3/uL (0.2-0.9) H 05/28/22 15:15 Eos # (Auto) 0.2 10^3/uL (0.0-0.8) 05/28/22 15:15 Baso # (Auto) 0.1 10^3/uL (0.0-0.1) 05/28/22 15:15 Nucleated RBC % (auto) 0 % 05/28/22 15:15 Nucleated RBCs # 0.0 /100WBC 05/28/22 15:15 D-Dimer 0.54 ug/mIFEU (0-0.59) 05/28/22 15:15 Sodium 133 mmol/L (136-145) L 05/28/22 15:15 Potassium 3.3 mmol/L (3.5-5.1) L 05/28/22 15:15 Chloride 90 mmol/L (98-107) L 05/28/22 15:15 Carbon Dioxide 27 mmol/L (22-29) 05/28/22 15:15 Anion Gap 19.3 (5-19) H 05/28/22 15:15 BUN 40 mg/dL (8-23) H 05/28/22 15:15 Creatinine 3.8 mg/dL (0.5-0.9) H 05/28/22 15:15 GFR Calculation 12.0 mL/min (90-130) L 05/28/22 15:15 Glucose 102 mg/dL (65-115) 05/28/22 15:15 Calculated Osmolality 286 mOsm/kg (285-295) 05/28/22 15:15 Lactic Acid 2.2 mmol/L (0.5-2.2) 05/28/22 15:36 Calcium 9.7 mg/dL (8.5-10.5) 05/28/22 15:15 Total Bilirubin 0.3 mg/dL (0.15-1.2) 05/28/22 15:15 AST 8 U/L (0-32) 05/28/22 15:15 ALT 8 U/L (0-33) 05/28/22 15:15 Alkaline Phosphatase 72 U/L (35-105) 05/28/22 15:15 Troponin T Baseline 28 ng/L (0-10) H 05/28/22 15:15 Troponin T 120 Minute 22.47 ng/L (0-10) H 05/28/22 17:16 Delta Troponin T -5.53 ABS# (0-10) L 05/28/22 17:16 NT-Pro-B Natriuret Pep 177 pg/mL (0-125) H 05/28/22 15:15 Total Protein 7.6 g/dL (6.6-8.7) 05/28/22 15:15 Albumin 4.0 g/dL (3.5-5.2) 05/28/22 15:15 Globulin 3.6 g/dL (1.3-4.6) 05/28/22 15:15 Urine Color Yellow (Yellow) 05/28/22 17:30 Urine Appearance Clear (CLEAR) 05/28/22 17:30 Urine pH 5 (5-7) 05/28/22 17:30 Ur Specific [place] 1.005 (1.005-1.030) 05/28/22 17:30 Urine Protein Trace (Negative) 05/28/22 17:30 Urine Glucose (UA) Norm (Normal) 05/28/22 17:30 Urine Ketones 1+ (Negative) H 05/28/22 17:30 Urine Blood Neg (Negative) 05/28/22 17:30 Urine Nitrate Negative (Negative) 05/28/22 17: Urine Bilirubin 1+ (Negative) H 05/28/22 17:30 Urine Urobilinogen 1 mg/dL (Negative) H 05/28/22 17:30 Ur Leukocyte Esterase Negative (Negative) 05/28/22 17:30 Urine RBC 0-4 /hpf (0-2) H 05/28/22 17:30 Urine WBC 0-4 /hpf (0-5) H 05/28/22 17:30 Ur Squamous Epith Cells 15-25 /hpf (0-5) H 05/28/22 17:30 Amorphous Sediment Not Reportable 05/28/22 17:30 Urine Bacteria Trace /hpf (NONE) 05/28/22 17:30 Coronavirus 229E (PCR) Not detected (NOT DETECT) 05/28/22 15:55 SARS-CoV-2 (PCR) Not detected (NOT DETECT) 05/28/22 15:55 Critical Care Time Critical Care Time: Critical Care Time: Yes Total Critical Care Time: 45 Attestation: Due to a high probability of clinically significant, possibly life threatening deterioration, the patient required my highest level of attention and preparedness to intervene emergently and I personally spent this critical care time directly and personally managing the patient. This critical care time included obtaining a history; examining the patient; pulse oximetry; ordering and review of laboratory and imaging studies; arranging urgent treatment with development of a management plan; evaluation of patient's response to treatment; frequent reassessment; and, discussions with other providers as applicable. It was exclusive of separately billable procedures. Primary system involved is cardiovascular Discharge Plan Discharge Patient Disposition: Admitted As Inpatient Admit Provider: Wil Lo Clinical Impression: ALYSSA (acute kidney injury), Acute dehydration, Syncope, Acute hypotension Condition: Stable Coding Level of Care Code ED Public Safety Director for Surinder Fwd Exam Comprehensive
--- NOTE | 2022-05-28 15:14 | XR_ITS ---
WS: [id number] Portable AP upright chest, 05/28/2022 Clinical Data: sob Comparison: PA chest with rib detail, 09/08/2017. Findings: No nodules, masses or effusions are seen. The heart is normal. The pulmonary vascularity is not increased. No pneumonia or pneumothorax is seen. XR/XR chest 1V portable [id number] Impression: Negative chest.
--- NOTE | 2022-05-28 15:19 | ECG_ITS ---
[facility] Test Date: 2022-05-28 Pat Name: Brandon Camacho Department: Room: Gender: Female Director Counseling Bureau: : [id number] Requested By: Ramy Villa Order Number: [id number] Gerda MD: Samuel Lawton M.D. Measurements Intervals [place] Rate: 77 P: 73 MO: 162 QRS: 87 QRSD: 96 T: 76 QT: 391 QTc: 445 Interpretive Statements SINUS RHYTHM MINIMAL ST DEPRESSION [0.025+ mV ST DEPRESSION] Compared to ECG 02/04/2017 12:20:17 ST (T wave) deviation now present Electronically Signed On 05-28-2022 16:50:26 CDT by Samuel Lawton M.D. [email or web address]
[2022-05-28 15:31] LABS: Basophils # 0.1 10^3/uL (0.0-0.1); Basophils % 0.8 %; Eosinophils # 0.2 10^3/uL (0.0-0.8); Eosinophils % 1.6 %; Hematocrit 34.6 % (37.0-47.0); Hemoglobin 11.4 g/dL (11.5-15.3); Lymphocytes # 3.5 10^3/uL (0.8-4.8); Lymphocytes % 26.5 %; Mean Corpuscular HGB Conc 32.9 g/dL (30.0-36.0); Mean Corpuscular Volume 91.1 fl (81-99); Mean Platelet Volume 9.8 fL (7.4-10.4); Monocytes # 1.1 10^3/uL (0.2-0.9); Monocytes % 8.1 %; Neutrophils # 8.28 10^3/uL (1.8-7.7); Neutrophils % 62.3 %; Nucleated Red Blood Cells % 0 %; Platelet Count 389 10^3/cmm (130-400); Red Cell Distribution Width 15.7 % (12.1-15.1); White Blood Count 13.3 10^3/uL (4.0-10.0)
[2022-05-28] MEDS: sodium chloride 0.9% 1,000 ML 999 ML IV ×2 (15:42→17:47)
[2022-05-28 15:50] LABS: D Dimer 0.54 ug/mIFEU (0-0.59)
--- NOTE | 2022-05-28 15:57 | CTR_ITS ---
PROCEDURE INFORMATION: Exam: CTA Head With Contrast, Arteriography Exam date and time: 05/28/2022 4:36 PM Age: 66 years old Clinical indication: Syncope and collapse; Additional info: Syncope, headache TECHNIQUE: Imaging protocol: Computed tomographic angiography of the head with contrast. Exam focused on the arteries. 3D rendering (Not supervised by radiologist): MIP and/or 3D reconstructed images were created by the technologist. Radiation optimization: All CT scans at this facility use at least one of these dose optimization techniques: automated exposure control; mA and/or kV adjustment per patient size (includes targeted exams where dose is matched to clinical indication); or iterative reconstruction. Contrast material: OMNIPAQUE 350; Contrast volume: 100 ml; Contrast route: INTRAVENOUS (IV); COMPARISON: CT head wo con* [id number] 05/08/2019 7:01 PM RADIATION DOSE METRICS: Total DLP (mGy-cm): 1096.01 FINDINGS: ANTERIOR CIRCULATION: Right internal carotid artery: Calcified plaque in the cavernous right internal carotid artery without stenosis. Right middle cerebral artery: No occlusion or significant stenosis. No aneurysm. Right anterior cerebral artery: No occlusion or significant stenosis. No aneurysm. Left internal carotid artery: Calcified plaque in the cavernous left internal carotid artery without stenosis. Left middle cerebral artery: No occlusion or significant stenosis. No aneurysm. Left anterior cerebral artery: No occlusion or significant stenosis. No aneurysm. POSTERIOR CIRCULATION: Right vertebral artery: Congenitally small right vertebral artery. No stenosis. Left vertebral artery: Congenitally small left vertebral artery. No stenosis. Basilar artery: Congenitally small basilar artery. No stenosis. Right posterior cerebral artery: Congenitally small or absent P1 segment of the right posterior cerebral artery with a patent communicating artery. No stenosis. Left posterior cerebral artery: Congenitally small or absent P1 segment of the left posterior cerebral artery with a patent communicating artery. No stenosis. Brain: Mild cortical volume loss. Mild hypodensities in supratentorial periventricular and subcortical white matter, consistent with microangiopathy. No intracranial hemorrhage. Cerebral ventricles: No ventriculomegaly. Bones/joints: Unremarkable. No acute fracture. Soft tissues: Unremarkable. PROCEDURE INFORMATION: Exam: CTA Neck With Contrast Exam date and time: 05/28/2022 4:36 PM Age: 66 years old Clinical indication: Syncope and collapse; Additional info: Syncope, headache TECHNIQUE: Imaging protocol: Computed tomographic angiography of the neck with contrast. 3D rendering (Not supervised by radiologist): MIP and/or 3D reconstructed images were created by the technologist. Radiation optimization: All CT scans at this facility use at least one of these dose optimization techniques: automated exposure control; mA and/or kV adjustment per patient size (includes targeted exams where dose is matched to clinical indication); or iterative reconstruction. Contrast material: OMNIPAQUE 350; Contrast volume: 100 ml; Contrast route: INTRAVENOUS (IV); COMPARISON: CT Cervical Spine wo* [id number] 05/08/2019 7:04 PM RADIATION DOSE METRICS: Total DLP (mGy-cm): 1096.01 FINDINGS: Right common carotid artery: No stenosis. No dissection or occlusion. Right internal carotid artery: Mild calcified plaque in the proximal right internal carotid artery with 0% stenosis. Right external carotid artery: No occlusion or stenosis of the origin. Left common carotid artery: No stenosis. No dissection or occlusion. Left internal carotid artery: Mild calcified plaque in the proximal left internal carotid artery with 0% stenosis. Left external carotid artery: No occlusion or stenosis of the origin. Right vertebral artery: Congenitally small right vertebral artery. No stenosis. Left vertebral artery: Congenitally small left vertebral artery. No stenosis. Left subclavian artery: Mild calcified plaque in the proximal left subclavian artery without stenosis. Soft tissues: Normal. No significant soft tissue swelling. Bones/joints: No acute fracture. Lungs: Mild dependent atelectasis in the upper lobes. CT/CT angio headneck* [id number] IMPRESSION: 1. No large artery occlusion or stenosis. 2. Congenitally small vertebral and basilar arteries. IMPRESSION: 1. No large artery occlusion or stenosis. REFERENCES: NASCET CRITERIA. The degree of stenosis in the cervical segment of the internal carotid artery is based on NASCET criteria. Normal is no stenosis. Mild is less than 50% stenosis. Moderate is 50-69% stenosis. Severe is 70% to 99% stenosis. Total occlusion is no detectable patent lumen.
[2022-05-28 16:15] LABS: Lactic Sepsis W/Reflex 2.2 mmol/L (0.5-2.2)
[2022-05-28 16:28] LABS: Troponin(5th) Baseline 28 ng/L (0-10)
[2022-05-28 16:36] LABS: Alanine Aminotransferase 8 U/L (0-33); Alkaline Phosphatase 72 U/L (35-105); Anion Gap 19.3 (5-19); Aspartate Amino Transferase 8 U/L (0-32); Blood Urea Nitrogen 40 mg/dL (8-23); Calcium 9.7 mg/dL (8.5-10.5); Carbon Dioxide 27 mmol/L (22-29); Chloride 90 mmol/L (98-107); Globulin 3.6 g/dL (1.3-4.6); Glucose 102 mg/dL (65-115); NT Pro B Type Natriuretic Pept 177 pg/mL (0-125); Osmolality Calculated 286 mOsm/kg (285-295); Potassium 3.3 mmol/L (3.5-5.1); Sodium 133 mmol/L (136-145); Total Bilirubin 0.3 mg/dL (0.15-1.2); Total Protein 7.6 g/dL (6.6-8.7)
--- NOTE | 2022-05-28 16:44 | CTR_ITS ---
PROCEDURE INFORMATION: Exam: CT Abdomen And Pelvis Without Contrast Exam date and time: 05/28/2022 5:03 PM Age: 66 years old Clinical indication: Abdominal tenderness; Prior surgery; Surgery type: Appy; Csection; Additional info: Mark, ? obstruction TECHNIQUE: Imaging protocol: Computed tomography of the abdomen and pelvis without contrast. Radiation optimization: All CT scans at this facility use at least one of these dose optimization techniques: automated exposure control; mA and/or kV adjustment per patient size (includes targeted exams where dose is matched to clinical indication); or iterative reconstruction. COMPARISON: CT abdomen pelvis w con* [id number] 07/09/2019 2:47 PM RADIATION DOSE METRICS: Total DLP (mGy-cm): 1172.43 FINDINGS: Lungs: Bibasilar atelectasis. Pleural spaces: Equivocal air in the pleural space anterior to the heart seen on the 2 upper most images, consider further evaluation with chest CT if concern for pneumothorax exists. Liver: Liver is somewhat enlarged. Gallbladder and bile ducts: Normal. No calcified stones. No ductal dilation. Pancreas: Normal. No ductal dilation. Spleen: Normal. No splenomegaly. Adrenal glands: Left adrenal 21 mm indeterminate nodule again seen similar to prior exam, dedicated nonemergent adrenal imaging could further evaluate this. Kidneys and ureters: Normal. No hydronephrosis. Stomach and bowel: Constipation. Appendix: No evidence of appendicitis. Intraperitoneal space: Unremarkable. No free air. No significant fluid collection. Vasculature: Unremarkable. No abdominal aortic aneurysm. Lymph nodes: Unremarkable. No enlarged lymph nodes. Urinary bladder: Unremarkable as visualized. Reproductive: Unremarkable as visualized. Bones/joints: Unremarkable. No acute fracture. Soft tissues: Unremarkable. CT/CT abdomen pelvis wo con [id number] IMPRESSION: 1. Negative for acute inflammatory process in the abdomen or pelvis. 2. Equivocal air in the pleural space anterior to the heart seen on the 2 upper most images, consider further evaluation with chest CT if concern for pneumothorax exists. 3. Bibasilar atelectasis. 4. Left adrenal 21 mm indeterminate nodule again seen similar to prior exam, dedicated nonemergent adrenal imaging could further evaluate this. 5. Constipation. 6. Liver is somewhat enlarged.
[2022-05-28] MEDS: iohexol 350 mg/mL 100 mL Btl IV (16:51)
[2022-05-28 17:30] LABS: Reflex Lactate Order REFLEX LACTIC ORDERD
--- NOTE | 2022-05-28 17:41 | ECG_ITS ---
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 Measurements Intervals [place] Rate: 85 P: 64 MT: 178 QRS: 74 QRSD: 105 T: 63 QT: 396 QTc: 473 Interpretive Statements SINUS RHYTHM LOW QRS VOLTAGE IN PRECORDIAL LEADS [QRS DEFLECTION < 1.0 mV IN CHEST LEADS] MINIMAL ST DEPRESSION [0.025+ mV ST DEPRESSION] Compared to ECG 05/28/2022 15:19:58 Low QRS voltage now present ST (T wave) deviation still present Electronically Signed On 05-31-2022 23:17:43 CDT by Rosanne Seo M.D. [id number]
[2022-05-28] MEDS: hydrocortisone 100 mg/2 mL SDV IVP (17:47)
[2022-05-28] MEDS: cefepime 2,000 MG in sodium chloride 0.9% (plus) 50 ML 100 MG IV (17:47)
[2022-05-28 18:03] LABS: Troponin 5 2HR 22.47 ng/L (0-10)
[2022-05-28 18:08] LABS: Troponin 5 2HR Delta -5.53 ABS# (0-10)
--- NOTE | 2022-05-28 18:13 | CTR_ITS ---
PROCEDURE INFORMATION: Exam: CT Chest Without Contrast; Diagnostic Exam date and time: 05/28/2022 6:38 PM Age: 66 years old Clinical indication: Wheezing TECHNIQUE: Imaging protocol: Diagnostic computed tomography of the chest without contrast. Radiation optimization: All CT scans at this facility use at least one of these dose optimization techniques: automated exposure control; mA and/or kV adjustment per patient size (includes targeted exams where dose is matched to clinical indication); or iterative reconstruction. COMPARISON: CT chest w con* [id number] 06/15/2018 10:35 AM RADIATION DOSE METRICS: Total DLP (mGy-cm): 686.87 FINDINGS: Lungs: Bibasilar atelectasis versus minimal infiltrate. Right upper lobe 5.5 mm partially calcified nodule likely reflects a benign granuloma. Pleural spaces: Unremarkable. No pneumothorax. No pleural effusion. Heart: Mild cardiomegaly. Very minimal coronary artery atherosclerotic calcifications. Lymph nodes: Unremarkable. No enlarged lymph nodes. Vasculature: Unremarkable. No aortic aneurysm. Bones/joints: Unremarkable. No acute fracture. Soft tissues: Left adrenal nodule again partially visualized, please refer to same-day CT abdomen and pelvis for further discussion. CT/CT chest wo con [id number] IMPRESSION: 1. Bibasilar atelectasis versus minimal infiltrate. 2. Mild cardiomegaly. 3. Very minimal coronary artery atherosclerotic calcifications. 4. Right upper lobe 5.5 mm partially calcified nodule likely reflects a benign granuloma. 5. Left adrenal nodule again partially visualized, please refer to same-day CT abdomen and pelvis for further discussion.
--- NOTE | 2022-05-28 18:13 | P.HP_ITS ---
Providers/Chief Complaint Primary Care Provider: Rios Lopez MD Chief Complaint: respiratory distress, syncope, wheezing History of Present Illness Brandon Camacho is a 66 year old female with a past medical history of chronic back pain, and pmk-vcuwfgw-qvkcgglwg type diabetes mellitus, hyperlipidemia, bipolar disorder, history of right foot callus, CKD stage II, COPD, dyslipidemia, DANA, who presents [facility] due to shortness of breath, wheezing, fatigue, malaise, lightheadedness, dizziness. Patient tells that she quit smoking a few days ago, since then she has not been feeling well, she has been wheezing, short of breath, coughing. She also tells me that she felt lightheaded, dizzy, she had an out of body sensation, and she felt that her legs gave out, and she fell backwards, denies any loss of consciousness, denies any seizure-like episodes no facial droop, no slurring of her words, no loss of vision, denies chest pain, no palpitations, no dysuria, hematuria, no flank pain does complain of epigastric discomfort, no diarrhea, she tells me that she does not believe in COVID Review of Systems Const: Denies: fever(s) Card: Denies: chest pain Resp: Reports: dyspnea and non-productive cough GI: Reports: abdominal pain : Denies: flank pain or difficulty voiding Medications/Allergies Home Medications Medication Instructions Recorded Confirmed Last Taken Type albuterol sulfate 90 mcg/actuation 2 puff inhalation Q6H PRN s 08/15/19 05/13/22 Unknown History aerosol inhaler (ProAir HFA) CAM LACHELLE #1 ea 09/20/19 05/13/22 Unknown Rx fluticasone 250 mcg-salmeterol 50 1 inh inhalation BID 01/14/20 05/13/22 Unknown History mcg/dose blistr powdr for inhalation (Advair Diskus) lachelle #1 ea 03/17/20 05/13/22 Unknown Rx Diabetic Shoes #1 ea 04/23/20 05/13/22 Unknown Rx mupirocin 2 % topical ointment See Rx Instructions .Route 06/16/21 05/13/22 Unknown Rx .COMPLEX #22 grams melatonin 10 mg disintegrating 10 mg PO DAILY 08/31/21 05/13/22 Unknown History tablet hydrochlorothiazide 25 mg tablet 25 mg PO QAM Blood Pressure & 04/28/22 10/06/22 Unknown Rx edema #90 tabs furosemide 20 mg tablet 20 mg PO QAM PRN edema #30 tabs 02/04/22 05/13/22 Unknown Rx omeprazole 20 mg capsule,delayed See Rx Instructions .Route 03/24/22 05/13/22 Unknown Rx release .COMPLEX #90 caps ropinirole 1 mg tablet 1 mg PO TID #90 tabs 03/24/22 05/13/22 Unknown Rx tolterodine 2 mg capsule,extended See Rx Instructions .Route 03/24/22 05/13/22 Unknown Rx release 24 hr .COMPLEX #90 caps cock up splint #1 ea 04/13/22 05/13/22 Unknown Rx zonisamide 100 mg capsule See Rx Instructions .Route 04/28/22 05/13/22 Unknown Rx .COMPLEX #180 caps atorvastatin 10 mg tablet See Rx Instructions .Route 04/30/22 05/13/22 Unknown Rx .COMPLEX #30 tabs pregabalin 50 mg capsule 50 mg PO BID chronic pain #60 caps 04/30/22 05/13/22 Unknown Rx fluticasone propionate 50 1 spray intranasal BID PRN nasal 05/21/22 Unknown Rx mcg/actuation nasal congestion #16 grams spray,suspension lisinopril 20 mg tablet 20 mg PO DAILY blood pressure #30 05/21/22 Unknown Rx tabs metformin 1,000 mg tablet 1,000 mg PO BID diabetes #60 tabs 05/21/22 Unknown Rx sitagliptin 50 mg tablet (Januvia) 50 mg PO DAILY diabetes 90 days 05/21/22 Unknown Rx #90 tabs venlafaxine 150 mg 150 mg PO QAM #30 caps 05/21/22 Unknown Rx capsule,extended release 24 hr divalproex 500 mg tablet,extended 1,000 mg PO .bedtime #60 tabs 05/24/22 05/24/22 Unknown Rx release 24 hr (Depakote ER) hydroxyzine HCl 50 mg tablet 50 mg PO BID PRN anxiety #30 tabs 05/24/22 05/24/22 Unknown Rx potassium chloride 20 mEq 20 meq PO BID take with furosemide 05/25/22 Unknown Rx tablet,extended release #60 tabs Allergies Allergy/AdvReac Type Severity Reaction Status Date / Time codeine Allergy Intermediate ALGY-Hives Verified 05/24/22 12:55 morphine Allergy Intermediate ALGY-Hives Verified 05/24/22 12:55 penicillamine Allergy Intermediate ALGY-Hives Verified 05/24/22 12:55 Sulfa (Sulfonamide Allergy Intermediate algy-hives Verified 05/24/22 12:55 Antibiotics) Penicillins Allergy Unknown Verified 05/24/22 12:55 PFSH Acute PFSH: Medical History Anxiety and depression Bilateral leg edema Bilateral lower leg cellulitis Bipolar affective Bipolar II disorder Borderline personality disorder Callus of foot Carpal tunnel syndrome, bilateral upper limbs Chronic kidney disease, stage 2, mildly decreased GFR Chronic post-traumatic stress disorder Chronic ulcer of great toe of right foot with fat layer exposed Chronic ulcer of left foot due to diabetes mellitus COPD (chronic obstructive pulmonary disease) Diabetes mellitus type 2 in obese Diabetic polyneuropathy Dyslipidemia Foreign body in foot, right GERD (gastroesophageal reflux disease) HTN (hypertension) Insomnia Low back pain radiating to both legs Nicotine dependence, cigarettes, uncomplicated Non-pressure chronic ulcer of other part of left foot with fat layer exposed DANA (obstructive sleep apnea) Osteoarthritis involving multiple joints on both sides of body DDD of low back, Bilateral Hips, knees and arms Palpitations Pre-ulcerative calluses Psychiatric care Restless leg Screening for colon cancer Surgical History H/O arthroscopy of left knee H/O section History of colonoscopy (05/21/15) Hx of appendectomy Hx of tonsillectomy Family History Mother Dementia Diabetes Hypertension Sister Psychiatric illness Other Cancer Denies family history of Clotting disorder Hyperlipidemia Chronic kidney disease (CKD) Suicide Anesthesia complication Family history of premature coronary artery disease Lung disease Stroke Social History Smoking and tobacco status: current every day smoker (1/2 ppd) cigarettes Packs smoked per day: 1 Second hand smoke exposure: Yes Smoking risk assessment/counseling performed?: Yes Alcohol intake: former Caregiver/support person: Yes Lives independently: Yes Housing: Apartment Current occupational status: retired History of recent travel: No Current gender identity: Female Vitals/I&O/Wt Last Vital Signs Temp 97.6 F 05/28/22 15:12 Pulse 89 05/28/22 15:12 Resp 16 05/28/22 15:12 BP 67/50 05/28/22 15:56 Pulse Ox 90 05/28/22 15:12 O2 Del Method 05/28/22 15:12 Weight last 48 hrs Weight 108.862 kg Physical Exam Const: COMMON NORMALS: no acute distress and patient oriented x3 HENMT: COMMON NORMALS: normocephalic HEAD & SCALP: normocephalic Neck/C-Spine: COMMON NORMALS: no JVD Resp: COMMON NORMALS: normal respiratory effort, No retractions, No use of accessory muscles and clear to auscultation bilaterally AUSCULTATION: wheezes (Wheezing in all lung alfredo) Cardio: COMMON NORMALS: no JVD, regular rate, regular rhythm, S1 normal heart sound present and S2 normal heart sound present RATE: regular rate RHYTHM: regular rhythm HEART SOUNDS: S1 normal heart sound present and S2 normal heart sound present GI: COMMON NORMALS: Normal to inspection, nondistended, normoactive bowel sounds present, Soft to palpation, non-tender, no masses and no bruits PALPATION: Yes Soft to palpation and Yes No hepatosplenomegaly present OTHER: Ventral hernia in place, obese abdomen Extremity: COMMON NORMALS: no calf tenderness and no pedal edema Neuro: COMMON NORMALS: patient oriented x3 and CN's II-XII intact bilaterally Psych: COMMON NORMALS: mental status grossly normal Urinary Catheter Management: Garcia: Cath Placed During This Visit: yes Urinary Catheter Date of Insertion: 05/28/22 Urinary Catheter Time of Insertion: 17:34 Data : 05/28/22 15:15 05/28/22 15:15 Micro: Microbiology 05/28/22 17:18 Blood Culture - Preliminary Blood SPECIMEN COLLECTED 05/28/22 17:16 Blood Culture - Preliminary Blood SPECIMEN COLLECTED A&P Assessment and plan (1) ALYSSA (acute kidney injury): (2) Acute dehydration: (3) Pre-syncope: (4) Acute hypotension: (5) COPD exacerbation: (6) Diabetes mellitus type 2 in obese: Plan Acute kidney injury -Likely sec to dehydration -We will obtain UA, CPK, TSH -Creatinine elevated, continue IV fluids -We will fluid bolus as needed, midodrine 10 every 8 hours Dehydration, IV fluids as above Acute hypotension, D-dimer within normal limits, anion gap 19.3, bicarb 27, troponin 28, likely sec to dehydration IV fluids, midodrine 10 mg Presyncopal symptoms, likely secondary to dehydration, but work-up as above, neurochecks, NIH stroke scale COPD exacerbation, will obtain CT of the chest, DuoNeb treatments, Solu-Medrol, Rocephin, azithromycin Type 2 diabetes mellitus, low-dose sliding scale Leukocytosis, obtain CT of the chest, UA DNR/DNI Lovenox for DVT prophylaxis Attestations Medical Necessity Statement*: Patient requires hospitalization, outpatient observation, for hypotension, dehydration, presyncope Coding Level of Care Code Acute Producer Arborist Manager for g Fwd Diagnoses ALYSSA (acute kidney injury) N17.9 Acute dehydration E86.0 Pre-syncope R55 Acute hypotension I95.9 COPD exacerbation J44.1 Diabetes mellitus type 2 in obese E11.69; E66.9
[2022-05-28] MEDS: potassium chloride ER 20 mEq Tablet 40 MEQ PO (18:23)
[2022-05-28 18:40] LABS: Urine Color Yellow (Yellow)
[2022-05-28 18:41] LABS: Add Urine Microscopic? YES; Bilirubin Urine 1+ (Negative); Blood Urine Neg (Negative); Glucose Urine UA Norm (Normal); Ketones Urine 1+ (Negative); Leukocyte Esterase Urine Negative (Negative); Nitrate Urine Negative (Negative); Protein Urine Trace (Negative); Specific Gravity, Urine 1.005 (1.005-1.030); Urine Appearance Clear (CLEAR); Urobilinogen Urine 1 mg/dL (Negative); pH Urine 5 (5-7)
[2022-05-28 18:42] LABS: Add Urine Culture? No; Bacteria Urine TRACE /hpf; RBC Urine 0-4 /hpf (0-2); Squamous Epithelial Cell Urine 15-25 /hpf (0-5); WBC Urine 0-4 /hpf (0-5)
[2022-05-28 19:04] LABS: Lactic Acid level (Lactate) 2.1 mmol/L (0.5-2.2)
[2022-05-28 19:15] LABS: NT Pro B Type Natriuretic Pept 116 pg/mL (0-125); Procalcitonin 0.26 ng/mL (0-0.5); Thyroid Stimulating Hormone 1.38 uIU/mL (0.27-4.20)
[2022-05-28 19:26] LABS: C Reactive Protein 55.9 mg/L (0.0-4.9); Creatine Phosphokinase 41 U/L (26-192)
[2022-05-28 19:28] LABS: Erythrocyte Sedimentation Rate 22 mm/hr (0-15)
[2022-05-28 20:26] LABS: Adenovirus Not Detected (NOT DETECT); Chlamydia Pneumoniae Not Detected (NOT DETECT); Coronavirus 229E,HKU1,NL63,OC4 Not Detected (NOT DETECT); Human Metapneumovirus Not Detected (NOT DETECT); Human Rhinovirus/Enterovirus Detected (NOT DETECT); Influenza A Not Detected (NOT DETECT); Influenza A H1 Not Detected (NOT DETECT); Influenza A H1-2009 Not Detected (NOT DETECT); Influenza A H3 Not Detected (NOT DETECT); Influenza B Not Detected (NOT DETECT); Mycoplasma Pneumoniae Not Detected (NOT DETECT); Parainfluenza Virus Type 1 Not Detected (NOT DETECT); Parainfluenza Virus Type 2 Not Detected (NOT DETECT); Parainfluenza Virus Type 3 Not Detected (NOT DETECT); Parainfluenza Virus Type 4 Not Detected (NOT DETECT); Respiratory Syncytial Virus A Not Detected (NOT DETECT); Respiratory Syncytial Virus B Not Detected (NOT DETECT); SARS-COV-2 Not Detected (NOT DETECT)
[2022-05-28] MEDS: ropinirole 1 mg Tablet PO (20:48)
[2022-05-28] MEDS: midodrine 5 mg TABLET 10 MG PO (20:49)
[2022-05-28] MEDS: acetaminophen 325 mg Tablet 650 MG PO (20:49)
[2022-05-28] MEDS: azithromycin 500 MG in sodium chloride 0.9% 250 ML 250 MG IV (20:51)
[2022-05-28] MEDS: sodium chloride 0.9% 1,000 ML 125 ML IV (20:54)
[2022-05-28 20:59] LABS: Human Metapneumovirus Not Detected (NOT DETECT); Human Rhinovirus/Enterovirus Detected (NOT DETECT); Results from Genmark
[2022-05-28] MEDS: ipratropium-albuterol 3 mL Neb INHALATION (21:01)
[2022-05-28] MEDS: enoxaparin 40 mg/0.4 mL Syringe SUBCUT (21:01)
--- NOTE | 2022-05-28 21:14 | ECG_ITS ---
[facility] Test Date: 2022-05-28 Pat Name: Brandon Camacho Department: Room: [id number] Gender: Female Supervisor Special Education: : 1955 Requested By: Ramy Villa Order Number: [id number] Gerda MD: Rosanne Seo M.D. Measurements Intervals [place] Rate: 80 P: 64 CT: 184 QRS: 75 QRSD: 102 T: 62 QT: 399 QTc: 462 Interpretive Statements SINUS RHYTHM LOW QRS VOLTAGE IN PRECORDIAL LEADS [QRS DEFLECTION < 1.0 mV IN CHEST LEADS] MINIMAL ST DEPRESSION [0.025+ mV ST DEPRESSION] Compared to ECG 05/28/2022 17:41:11 No significant changes Electronically Signed On 05-31-2022 23:17:25 CDT by Rosanne Seo M.D. [id number]
[2022-05-28 21:26] LABS: Estmated Average Glucose 123; Hemoglobin A1C 5.9 % (4.0-6.0)
[2022-05-28 21:51] LABS: Troponin 5 6HR 14.92 ng/L (0-10)
[2022-05-28] MEDS: divalproex ER 500 mg Tablet (24H) 1000 MG PO (21:59)
[2022-05-28 22:04] LABS: Glucose Point of Care 186 mg/dL (70-110)
--- NOTE | 2022-05-28 22:30 | PC.NURSE ---
Insulin Education Patient inquired about taking home medications metformin and sitagliptin for sugar control; education provided on inulin use in place of PO medication starting tomorrow. Patient then responded, I don't want to take any shots, just change my medication back. I will not take the shots. Dr. Berger notified of patient reluctance of receiving future insulin doses. Further education provided to patient on the reasoning of initiating insulin in place of PO medication with her acute kidney injury. Patient verbalized understanding of education and stated that she would comply with use of insulin as needed for hospital stay. Patient stated no further questions.
[2022-05-29] VITALS (52 sets, daily range): BP systolic 81–119; BP diastolic 52–82; PULSE 61–85; RESP 13–24; TEMP 36.6; O2SAT 89–98
--- NOTE | 2022-05-29 01:53 | PHA.FALL ---
A Pharmacy Consult Was Conducted For Brandon Camacho Due To: Metzger Fall Scale Risk Level: High Fall Risk On 05/28/22 20:22 And A Medication Fall Risk Score Greater Than 10. The Recommendations Are As Follows: Divalproex STEPHEN: 1,3,4,5,6,7,8,10 Furosemide STEPHEN: 3,4 HCTZ STEPHEN: 1,3,4,7,11 Lisinopril STEPHEN: 1,3,4,5,8,9 Lyrica STEPHEN: 1,3,4,5,6,7,8,10 Venlafaxine STEPHEN: 1,4,7 Zonisamide STEPHEN: 1,3,4,5,6,7,8,10 Medications which cause/contribute to: 1= sedation/fatigue/lethargy 2= decreased alertness 3= postural/orthostatic hypotension 4= dizziness 5= decreased neuromuscular function/ataxia 6=decreased memory/cognitive impairment 7= blurred vision 8= confusion 9= arrhythmias 10= syncope 11= anemia
[2022-05-29] MEDS: midodrine 5 mg TABLET 10 MG PO (04:23)
[2022-05-29] MEDS: sodium chloride 0.9% 1,000 ML 125 ML IV (05:04)
[2022-05-29] MEDS: venlafaxine ER (24HR) 150 mg Capsule PO (05:04)
--- NOTE | 2022-05-29 05:26 | PC.NURSE ---
Protonix Patient requested her home medication omeprazole [address] Berger contacted and order received for 40 mg protonix PO daily. Medication administered per OCT.
[2022-05-29 05:44] LABS: Basophils % 0.3 %; Hemoglobin 10.1 g/dL (11.5-15.3); Lymphocytes # 1.2 10^3/uL (0.8-4.8); Lymphocytes % 10.2 %; Mean Corpuscular HGB Conc 32.6 g/dL (30.0-36.0); Mean Corpuscular Hemoglobin 29.6 pg (28.0-34.0); Mean Corpuscular Volume 90.9 fl (81-99); Mean Platelet Volume 9.6 fL (7.4-10.4); Monocytes # 0.5 10^3/uL (0.2-0.9); Monocytes % 3.7 %; Neutrophils # 10.29 10^3/uL (1.8-7.7); Neutrophils % 85.1 %; Nucleated Red Blood Cells % 0 %; Platelet Count 339 10^3/cmm (130-400); Red Blood Count 3.41 10^6/uL (4.1-5.3); Red Cell Distribution Width 15.4 % (12.1-15.1); White Blood Count 12.1 10^3/uL (4.0-10.0)
[2022-05-29] MEDS: pantoprazole DR 40 mg Tablet PO (06:04)
[2022-05-29 06:10] LABS: Anion Gap 16.1 (5-19); Blood Urea Nitrogen 36 mg/dL (8-23); Calcium 9.3 mg/dL (8.5-10.5); Carbon Dioxide 26 mmol/L (22-29); Chloride 97 mmol/L (98-107); Glomerular Filtration Rate 30.3 mL/min (90-130); Glucose 161 mg/dL (65-115); Magnesium 2.1 mg/dL (1.7-2.3); Osmolality Calculated 292 mOsm/kg (285-295); Potassium 4.1 mmol/L (3.5-5.1); Sodium 135 mmol/L (136-145)
[2022-05-29] MEDS: ipratropium-albuterol 3 mL Neb INHALATION ×2 (07:46→11:11)
[2022-05-29 08:03] LABS: Glucose Point of Care 162 mg/dL (70-110)
[2022-05-29] MEDS: pregabalin 50 mg Capsule PO (08:23)
[2022-05-29] MEDS: predniSONE 20 mg Tablet 40 MG PO (08:23)
[2022-05-29] MEDS: insulin lispro 100 unit/1 mL SUBCUT (08:24)
[2022-05-29] MEDS: cefTRIAXone 1,000 MG in sodium chloride 0.9% (plus) 50 ML 100 MG IV (08:24)
[2022-05-29] MEDS: ropinirole 1 mg Tablet PO (08:24)
--- NOTE | 2022-05-29 09:58 | PC.NURSE ---
Garcia removed at 0915.
[2022-05-29 11:24] LABS: Glucose Point of Care 159 mg/dL (70-110)
--- NOTE | 2022-05-29 11:46 | P.DS_ITS ---
Discharge Providers Date of Admission: 05/28/22 20:19 Date of Discharge: May 29, 2022 Attending Provider at Admission: Wil Lo MD Attending Provider at Discharge: Wil Lo MD Primary Care Provider: Rios Lopez MD Diagnoses at Discharge Discharge Diagnosis (1) ALYSSA (acute kidney injury): Status: Resolved (2) Acute dehydration: Status: Resolved (3) Pre-syncope: Status: Resolved (4) Acute hypotension: Status: Resolved (5) COPD exacerbation: Status: Resolved (6) Diabetes mellitus type 2 in obese: Status: Acute Reason for Visit Reason for Visit: respiratory distress, syncope, wheezing Hospital Course Hospital Course Brandon Camacho is a 66 year old female with a past medical history of chronic back pain, and slu-cirvuqi-kagecugvz type diabetes mellitus, hyperlipidemia, bipolar disorder, history of right foot callus, CKD stage II, COPD, dyslipidemia, DANA, who presents [facility] due to shortness of breath, wheezing, fatigue, malaise, lightheadedness, dizziness.?? For her short of breath, wheezing likely combination of COPD exacerbation, positive rhinovirus URI, received steroid therapy, inhaler therapy, overall clinically improved. Will be discharged on prednisone burst, with azithromycin, with close follow-up with primary care provider For her presyncopal symptoms, lightheadedness, improved with IV hydration, advised to drink plenty of electrolyte balance fluids For her ALYSSA on CKD, improved with IV hydration, creatinine on discharge 1.7, advised to continue to drink a lot of FLUIDS, follow-up with Dr. Lopez on Tuesday Given patient's reduced GFR, with ALYSSA, I have had to adjust her dose of met formin to 500 mg twice a day, if her kidney function continues to improve can upward titrate Physical Exam Const: COMMON NORMALS: no acute distress and patient oriented x3 Resp: COMMON NORMALS: normal respiratory effort, No retractions, No use of accessory muscles and clear to auscultation bilaterally AUSCULTATION: clear to auscultation bilaterally Cardio: COMMON NORMALS: regular rate, regular rhythm, S1 normal heart sound present and S2 normal heart sound present RATE: regular rate RHYTHM: regular rhythm HEART SOUNDS: S1 normal heart sound present and S2 normal heart sound present GI: COMMON NORMALS: Normal to inspection, nondistended, normoactive bowel sounds present and non-tender Extremity: COMMON NORMALS: no pedal edema Neuro: COMMON NORMALS: patient oriented x3 Psych: COMMON NORMALS: mental status grossly normal Urinary Catheter Management: Garcia: Cath Placed During This Visit: yes, but has since been removed by the nurse Reason for Continuing Indwelling Catheter: Accurate Measurement of Urinary Output in Critically Ill Patients Urinary Catheter Date of Insertion: 05/28/22 Urinary Catheter Time of Insertion: 17:34 Date Urinary Catheter Removed: 05/29/22 Time Urinary Catheter Discontinued: 09:15 Discharge Data Studies Completed and Pending Completed Studies During Hospitalization Category Date Time Status CT abdomen pelvis wo con [id number] Stat Cat Scan 05/28/22 16:[address] chest wo con [id number] Stat Cat Scan 05/28/22 18:13 Completed CTA head neck [CT angio headneck* [id number]] Stat Cat Scan 05/28/22 15:57 Completed XR chest 1V portable [id number] Stat Exams 05/28/22 15:14 Completed Pending at discharge Category Date Time Status Blood Culture Stat Lab 05/28/22 17:18 Results Radiology Impressions Chest X-Ray 05/28/22 15:14 Impression: Negative chest. Head/Neck CTA 05/28/22 15:57 IMPRESSION: 1. No large artery occlusion or stenosis. 2. Congenitally small vertebral and basilar arteries. IMPRESSION: 1. No large artery occlusion or stenosis. REFERENCES: NASCET CRITERIA. The degree of stenosis in the cervical segment of the internal carotid artery is based on NASCET criteria. Normal is no stenosis. Mild is less than 50% stenosis. Moderate is 50-69% stenosis. Severe is 70% to 99% stenosis. Total occlusion is no detectable patent lumen. Abdomen/Pelvis CT 05/28/22 16:44 IMPRESSION: 1. Negative for acute inflammatory process in the abdomen or pelvis. 2. Equivocal air in the pleural space anterior to the heart seen on the 2 upper most images, consider further evaluation with chest CT if concern for pneumothorax exists. 3. Bibasilar atelectasis. 4. Left adrenal 21 mm indeterminate nodule again seen similar to prior exam, dedicated nonemergent adrenal imaging could further evaluate this. 5. Constipation. 6. Liver is somewhat enlarged. Chest CT 05/28/22 18:13 IMPRESSION: 1. Bibasilar atelectasis versus minimal infiltrate. 2. Mild cardiomegaly. 3. Very minimal coronary artery atherosclerotic calcifications. 4. Right upper lobe 5.5 mm partially calcified nodule likely reflects a benign granuloma. 5. Left adrenal nodule again partially visualized, please refer to same-day CT abdomen and pelvis for further discussion. Laboratory Results WBC 12.1 10^3/uL (4.0-10.0) H 05/29/22 05:18 RBC 3.41 10^6/uL (4.1-5.3) L 05/29/22 05:18 Hgb 10.1 g/dL (11.5-15.3) L 05/29/22 05:18 Hct 31.0 % (37.0-47.0) L 05/29/22 05:18 MCV 90.9 fl (81-99) 05/29/22 05:18 MCH 29.6 pg (28.0-34.0) 05/29/22 05:18 MCHC 32.6 g/dL (30.0-36.0) 05/29/22 05:18 RDW 15.4 % (12.1-15.1) H 05/29/22 05:18 Plt Count 339 10^3/cmm (130-400) 05/29/22 05:18 MPV 9.6 fL (7.4-10.4) 05/29/22 05:18 Neut % (Auto) 85.1 % 05/29/22 05:18 Lymph % (Auto) 10.2 % 05/29/22 05:18 [place] % (Auto) 3.7 % 05/29/22 05:18 Eos % (Auto) 0.0 % 05/29/22 05:18 Baso % (Auto) 0.3 % 05/29/22 05:18 Neut # (Auto) 10.29 10^3/uL (1.8-7.7) H 05/29/22 05:18 Lymph # (Auto) 1.2 10^3/uL (0.8-4.8) 05/29/22 05:18 [place] # (Auto) 0.5 10^3/uL (0.2-0.9) 05/29/22 05:18 Eos # (Auto) 0.0 10^3/uL (0.0-0.8) 05/29/22 05:18 Baso # (Auto) 0.0 10^3/uL (0.0-0.1) 05/29/22 05:18 Nucleated RBC % (auto) 0 % 05/29/22 05:18 Nucleated RBCs # 0.0 /100WBC 05/29/22 05:18 ESR 22 mm/hr (0-15) H 05/28/22 18:32 D-Dimer 0.54 ug/mIFEU (0-0.59) 05/28/22 15:15 Sodium 135 mmol/L (136-145) L 05/29/22 05:18 Potassium 4.1 mmol/L (3.5-5.1) 05/29/22 05:18 Chloride 97 mmol/L (98-107) L 05/29/22 05:18 Carbon Dioxide 26 mmol/L (22-29) 05/29/22 05:18 Anion Gap 16.1 (5-19) 05/29/22 05:18 BUN 36 mg/dL (8-23) H 05/29/22 05:18 Creatinine 1.7 mg/dL (0.5-0.9) H 05/29/22 05:18 GFR Calculation 30.3 mL/min (90-130) L 05/29/22 05:18 Glucose 161 mg/dL (65-115) H 05/29/22 05:18 POC Glucose 159 mg/dL (70-110) H 05/29/22 11:20 Estimat Average Glucose 123 05/28/22 18:32 Hemoglobin A1c 5.9 % (4.0-6.0) 05/28/22 18:32 Calculated Osmolality 292 mOsm/kg (285-295) 05/29/22 05:18 Lactic Acid 2.2 mmol/L (0.5-2.2) 05/28/22 15:36 Lactic Acid (Sepsis) 2.1 mmol/L (0.5-2.2) 05/28/22 18:32 Calcium 9.3 mg/dL (8.5-10.5) 05/29/22 05:18 Magnesium 2.1 mg/dL (1.7-2.3) 05/29/22 05:18 Total Bilirubin 0.3 mg/dL (0.15-1.2) 05/28/22 15:15 AST 8 U/L (0-32) 05/28/22 15:15 ALT 8 U/L (0-33) 05/28/22 15:15 Alkaline Phosphatase 72 U/L (35-105) 05/28/22 15:15 Creatine Kinase 41 U/L (26-192) 05/28/22 18:32 Troponin T Baseline 28 ng/L (0-10) H 05/28/22 15:15 Troponin T 120 Minute 22.47 ng/L (0-10) H 05/28/22 17:16 Delta Troponin T -5.53 ABS# (0-10) L 05/28/22 17:16 Troponin T Hi Sens 6Hr 14.92 ng/L (0-10) H 05/28/22 19:23 Troponin T Hi Sens 6Hr Delta -13.08 ng/L (0-12) L 05/28/22 19:23 C-Reactive Protein 55.9 mg/L (0.0-4.9) H 05/28/22 18:32 NT-Pro-B Natriuret Pep 116 pg/mL (0-125) 05/28/22 18:32 Total Protein 7.6 g/dL (6.6-8.7) 05/28/22 15:15 Albumin 4.0 g/dL (3.5-5.2) 05/28/22 15:15 Globulin 3.6 g/dL (1.3-4.6) 05/28/22 15:15 Procalcitonin 0.26 ng/mL (0-0.5) 05/28/22 18:32 TSH 1.38 uIU/mL (0.27-4.20) 05/28/22 18:32 Urine Color Yellow (Yellow) 05/28/22 17:30 Urine Appearance Clear (CLEAR) 05/28/22 17:30 Urine pH 5 (5-7) 05/28/22 17:30 Ur Specific [place] 1.005 (1.005-1.030) 05/28/22 17:30 Urine Protein Trace (Negative) 05/28/22 17:30 Urine Glucose (UA) Norm (Normal) 05/28/22 17:30 Urine Ketones 1+ (Negative) H 05/28/22 17:30 Urine Blood Neg (Negative) 05/28/22 17:30 Urine Nitrate Negative (Negative) 05/28/22 17:30 Urine Bilirubin 1+ (Negative) H 05/28/22 17:30 Urine Urobilinogen 1 mg/dL (Negative) H 05/28/22 17:30 Ur Leukocyte Esterase Negative (Negative) 05/28/22 17:30 Urine RBC 0-4 /hpf (0-2) H 05/28/22 17:30 Urine WBC 0-4 /hpf (0-5) H 05/28/22 17:30 Ur Squamous Epith Cells 15-25 /hpf (0-5) H 05/28/22 17:30 Amorphous Sediment Not Reportable 05/28/22 17:30 Urine Bacteria Trace /hpf (NONE) 05/28/22 17:30 Coronavirus 229E (PCR) Not detected (NOT DETECT) 05/28/22 15:55 Human Metapneumovir PCR Not detected (NOT DETECT) 05/28/22 20:57 Entero/Rhino (PCR) Detected (NOT DETECT) A 05/28/22 20:57 SARS-CoV-2 (PCR) Not detected (NOT DETECT) 05/28/22 15:55 Vitals Last Vital Signs Temp 97.8 F 05/29/22 04:00 Pulse 72 05/29/22 11:10 Resp 16 05/29/22 11:00 BP 99/54 05/29/22 10:45 Pulse Ox 95 05/29/22 11:00 O2 Del Method 05/29/22 11:00 O2 Flow Rate 1 05/29/22 07:40 Discharge Plan Discharge Patient Disposition: Home Condition: Stable Prescriptions: New prednisone 20 mg Tablet 40 mg PO DAILY 4 Days Qty: 8 0RF azithromycin 250 mg tablet 250 mg PO DAILY 4 Days Qty: 4 0RF Continued (DME) GENEVIEVE LAROSE Qty: 1 0RF Rx Instructions: As directed (DME) walker See Rx Instructions .Route .MEDSUPPLY Qty: 1 0RF Rx Instructions: As directed (DME) Diabetic Shoes See Rx Instructions .ROUTE .MEDSUPPLY Qty: 1 0RF Rx Instructions: As directed albuterol sulfate [ProAir HFA] 90 mcg/actuation HFA aerosol inhaler 2 puff INHALATION Q6H PRN (Reason: s) divalproex [Depakote ER] 500 mg tablet extended release 24 hr 1,000 mg PO .bedtime Qty: 60 3RF Rx Instructions: Take two tablet at bedtime hydroxyzine HCl 50 mg tablet 50 mg PO BID PRN (Reason: anxiety) Qty: 30 3RF Rx Instructions: Take one tablet twice per day as needed for anxiety ropinirole 1 mg tablet 1 mg PO TID Qty: 90 5RF (DME) cock up splint See Rx Instructions .Route .MEDSUPPLY Qty: 1 0RF Rx Instructions: As directed tolterodine 2 mg capsule,extended release 24hr See Rx Instructions .ROUTE .COMPLEX Qty: 90 3RF Dose Instruction: TAKE ONE CAPSULE BY MOUTH EVERY DAY Rx Instructions: TAKE ONE CAPSULE BY MOUTH EVERY DAY omeprazole 20 mg capsule,delayed release(DR/EC) See Rx Instructions .ROUTE .COMPLEX Qty: 90 1RF Dose Instruction: TAKE ONE CAPSULE BY MOUTH EVERY DAY Rx Instructions: TAKE ONE CAPSULE BY MOUTH EVERY DAY zonisamide 100 mg capsule See Rx Instructions .ROUTE .COMPLEX Qty: 180 1RF Dose Instruction: TAKE 5 CAPSULES BY MOUTH ONCE DAILY FOR NEUROPATHY Rx Instructions: TAKE 5 CAPSULES BY MOUTH ONCE DAILY FOR NEUROPATHY atorvastatin 10 mg tablet See Rx Instructions .ROUTE .COMPLEX Qty: 30 1RF Dose Instruction: TAKE ONE TABLET BY MOUTH EVERY DAY Rx Instructions: TAKE ONE TABLET BY MOUTH EVERY DAY pregabalin 50 mg capsule 50 mg PO BID Qty: 60 0RF venlafaxine 150 mg capsule,extended release 24hr 150 mg PO QAM Qty: 30 3RF Rx Instructions: Take one capsule every morning Januvia 50 mg tablet 50 mg PO DAILY 90 Days Qty: 90 1RF fluticasone propion-salmeterol [Advair Diskus] 250-50 mcg/dose Blister With Device 1 inh INHALATION BID Changed metformin 1,000 mg tablet 500 mg PO BID Qty: 60 5RF potassium chloride 20 mEq tablet extended release 20 meq PO Q24H Qty: 60 5RF Held furosemide 20 mg tablet 20 mg PO QAM PRN (Reason: edema) Qty: 30 3RF Hold Instructions: Resume on 05/31/22. fluticasone propionate 50 mcg/actuation spray,suspension 1 spray intranasal BID PRN (Reason: nasal congestion) Qty: 16 5RF Hold Instructions: Resume on 05/31/22. Rx Instructions: administer into each nostril lisinopril 20 mg tablet 20 mg PO DAILY Qty: 30 5RF Hold Instructions: Resume on 05/31/22. hold until you see primary care Discontinued hydrochlorothiazide 25 mg tablet 25 mg PO QAM Qty: 90 3RF Discharge Orders: Discharge Order (Routine); Ordered 05/29/22 Ordered By: Wli Lo Referrals: Rios Lopez MD [Primary Care Provider] - 1-3 days (Call to make appointment) Discharge Diet: Cardiac Discharge Activity: Resume usual activity and Return to work/school after cleared by PCP/Specialist Patient Instructions: Opioid Safety Activity Restrictions/Additional Instructions: - Please see Dr. Lopez on Tuesday -If you have recurrent lightheadedness or dizziness or presyncopal symptoms please go to the emergency room -Monitor blood sugars closely -If blood sugar less than 60 drink orange juice or eat candy go to emergency room -If blood sugar than 500 go to the emergency room -Please read plenty of electrolyte balance fluids, hypertension-recheck your kidney function next week Discharge Attestations Time Spent in Discharge Care*: less than 30 min Quality Metrics Clinical Quality Measures [ No reported AMI, CVA or VTE this stay] Coding Level of Care Code Acute Chg FW DC note Exam Detailed Diagnoses ALYSSA (acute kidney injury) N17.9 Acute dehydration E86.0 Pre-syncope R55 Acute hypotension I95.9 COPD exacerbation J44.1 Diabetes mellitus type 2 in obese E11.69; E66.9
--- NOTE | 2022-05-29 12:30 | PC.NURSE ---
Patient was discharged to son-in-laws vehicle at 1230 via wheelchair. She was educated on the importance of making her follow up appointment and following medication changes.
--- NOTE | 2022-05-29 13:08 | PC.PT ---
Patient has discharged from facility.
== END 2022-05-29 12:30 | disposition home or self-care (01) ==
LOC: ER 19:08 → ICU 19:53
PROVIDERS: Admitting Provider Family Medicine; Emergency Provider Emergency Medicine; PCP Family Medicine Adult Medicine; Visit Provider Family Medicine
DX: N17.9 Acute kidney failure, unspecified (principal); E86.0 Dehydration; R55 Syncope and collapse; I95.9 Hypotension, unspecified; J44.1 Chronic obstructive pulmonary disease with (acute) exacerbation; E11.69 Type 2 diabetes mellitus with other specified complication; E66.9 Obesity, unspecified; Z68.38 Body mass index [BMI] 38.0-38.9, adult; E78.5 Hyperlipidemia, unspecified; G47.33 Obstructive sleep apnea (adult) (pediatric); E11.22 Type 2 diabetes mellitus with diabetic chronic kidney disease; I12.9 Hypertensive chronic kidney disease with stage 1 through stage 4 chronic kidney disease, or unspecified chronic kidney disease; N18.9 Chronic kidney disease, unspecified; Z79.84 Long term (current) use of oral hypoglycemic drugs; E11.42 Type 2 diabetes mellitus with diabetic polyneuropathy; F17.210 Nicotine dependence, cigarettes, uncomplicated; Z66 Do not resuscitate
CPT/HCPCS: 36415; 36416; 51702; 70496; 70498; 71045; 71250; 74176; 80048; 80053; 81001; 82550; 82962; 83036; 83605; 83735; 83880; 84145; 84443; 84484; 85025; 85378; 85651; 86140; 87040; 87635; 87801; 93005; 94640; 94664; 96365; 96372; 96375; 97165; 99285; G0378; J0456; J0692; J0696; J1650; J1720; J1815; J7030; J7050; J7512; Q9967

== ENCOUNTER → 2022-06-03 08:04 | Outpatient (BNVA) | payer MEDICARE, MEDICAID, SELFPAY ==
[2020-07-16 16:55] VITALS: BP 105/75; BMI 39.2
== END ==
PROVIDERS: PCP Family Medicine Adult Medicine; Visit Provider Family Medicine Adult Medicine
DX: N17.9 Acute kidney failure, unspecified (principal); N18.2 Chronic kidney disease, stage 2 (mild)
CPT/HCPCS: 80048

== ENCOUNTER 2022-07-16 22:10 | Emergency (ER) | payer MEDICARE, MEDICAID, SELFPAY ==
[2020-07-16 16:55] VITALS: BP 105/75; BMI 39.2
[2022-07-16 22:19] VITALS: BP 154/106; PULSE 106; RESP 20; TEMP 36.4; O2SAT 95; BMI 39.5
[2022-07-16 22:26] VITALS: BMI 39.5
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
[2022-07-16] MEDS: HYDROmorphone 1 mg/mL INJ 1 mL 0.5 MG IVP (22:59)
[2022-07-16] MEDS: ondansetron 2 mg/ML SDV 2 mL 4 MG IVP (23:01)
[2022-07-16] MEDS: iohexol 350 mg/mL 500 mL Btl (per mL) IV (23:20)
[2022-07-17] MEDS: HYDROmorphone 1 mg/mL INJ 1 mL IVP (00:04)
[2022-07-17 00:14] VITALS: BP 158/100; PULSE 120; RESP 18; O2SAT 93
== END 2022-07-17 00:17 | disposition short-term general hospital (02) ==
PROVIDERS: Emergency Provider Emergency Medicine; PCP Family Medicine Adult Medicine
DX: S06.6XAA Traumatic subarachnoid hemorrhage with loss of consciousness status unknown, initial encounter (principal); S32.591A Other specified fracture of right pubis, initial encounter for closed fracture; F17.210 Nicotine dependence, cigarettes, uncomplicated; E11.22 Type 2 diabetes mellitus with diabetic chronic kidney disease; I12.9 Hypertensive chronic kidney disease with stage 1 through stage 4 chronic kidney disease, or unspecified chronic kidney disease; N18.30 Chronic kidney disease, stage 3 unspecified; J44.9 Chronic obstructive pulmonary disease, unspecified; E78.5 Hyperlipidemia, unspecified; V89.2XXA Person injured in unspecified motor-vehicle accident, traffic, initial encounter
CPT/HCPCS: 70450; 71260; 72125; 73700; 74177; 96374; 96375; 96376; 99285; J1170; J2405; Q9967

== ENCOUNTER → 2022-10-25 09:33 | Outpatient (BNVA) | payer MEDICARE, MEDICAID, SELFPAY ==
[2020-07-16 16:55] VITALS: BP 105/75; BMI 39.2
== END ==
PROVIDERS: PCP Family Medicine Adult Medicine; Visit Provider Specialist
DX: M25.561 Pain in right knee (principal)
CPT/HCPCS: 73560; 73565; 99204

== ENCOUNTER → 2022-11-05 10:12 | Outpatient (BNVA) | payer MEDICARE, MEDICAID, SELFPAY ==
[2020-07-16 16:55] VITALS: BP 105/75; BMI 39.2
== END ==
PROVIDERS: PCP Family Medicine Adult Medicine; Visit Provider Nurse Practitioner Family
DX: S52.501A Unspecified fracture of the lower end of right radius, initial encounter for closed fracture (principal); S52.614A Nondisplaced fracture of right ulna styloid process, initial encounter for closed fracture; W19.XXXA Unspecified fall, initial encounter
CPT/HCPCS: 73110

== ENCOUNTER → 2022-11-10 09:13 | Outpatient (BNVA) | payer MEDICARE, MEDICAID, SELFPAY ==
[2020-07-16 16:55] VITALS: BP 105/75; BMI 39.2
== END ==
PROVIDERS: PCP Family Medicine Adult Medicine; Referring Provider Nurse Practitioner Family; Visit Provider Nurse Practitioner Family
DX: S52.91XA Unspecified fracture of right forearm, initial encounter for closed fracture (principal); S52.201A Unspecified fracture of shaft of right ulna, initial encounter for closed fracture; W10.9XXA Fall (on) (from) unspecified stairs and steps, initial encounter
CPT/HCPCS: 73110

== ENCOUNTER 2022-11-10 10:28 | Outpatient (CLI) | payer MEDICARE, MEDICAID, SELFPAY ==
[2020-07-16 16:55] VITALS: BP 105/75; BMI 39.2
== END 2022-11-10 10:29 | disposition home or self-care (01) ==
LOC: SPT 10:29
PROVIDERS: PCP Family Medicine Adult Medicine; Visit Provider Nurse Practitioner Family
DX: Z46.89 Encounter for fitting and adjustment of other specified devices (principal); S52.591D Other fractures of lower end of right radius, subsequent encounter for closed fracture with routine healing; X58.XXXD Exposure to other specified factors, subsequent encounter
CPT/HCPCS: 97760; 99214; L3982

== ENCOUNTER → 2022-12-08 09:20 | Outpatient (BNVA) | payer MEDICARE, MEDICAID, SELFPAY ==
[2020-07-16 16:55] VITALS: BP 105/75; BMI 39.2
== END ==
PROVIDERS: PCP Family Medicine Adult Medicine; Visit Provider Nurse Practitioner Family
DX: S52.91XA Unspecified fracture of right forearm, initial encounter for closed fracture (principal); S52.201A Unspecified fracture of shaft of right ulna, initial encounter for closed fracture; X58.XXXA Exposure to other specified factors, initial encounter
CPT/HCPCS: 73110; 99213

== ENCOUNTER → 2022-12-22 08:00 | Outpatient (BNVA) | payer MEDICARE, MEDICAID, SELFPAY ==
[2020-07-16 16:55] VITALS: BP 105/75; BMI 39.2
== END ==
PROVIDERS: PCP Family Medicine Adult Medicine; Visit Provider Nurse Practitioner Family
DX: S52.91XD Unspecified fracture of right forearm, subsequent encounter for closed fracture with routine healing (principal); S52.201D Unspecified fracture of shaft of right ulna, subsequent encounter for closed fracture with routine healing; X58.XXXD Exposure to other specified factors, subsequent encounter
CPT/HCPCS: 73110

== ENCOUNTER 2022-12-22 09:23 | Outpatient (CLI) | payer MEDICARE, MEDICAID, SELFPAY ==
[2020-07-16 16:55] VITALS: BP 105/75; BMI 39.2
== END 2022-12-22 09:24 | disposition home or self-care (01) ==
LOC: SPT 09:24
PROVIDERS: PCP Family Medicine Adult Medicine; Visit Provider Nurse Practitioner Family
DX: Z46.89 Encounter for fitting and adjustment of other specified devices (principal); S52.91XD Unspecified fracture of right forearm, subsequent encounter for closed fracture with routine healing; S52.201D Unspecified fracture of shaft of right ulna, subsequent encounter for closed fracture with routine healing; X58.XXXD Exposure to other specified factors, subsequent encounter
CPT/HCPCS: 97760; 99213; L3908

== ENCOUNTER → 2023-01-27 08:21 | Outpatient (BNVA) | payer MEDICARE, MEDICAID, SELFPAY ==
[2020-07-16 16:55] VITALS: BP 105/75; BMI 39.2
== END ==
PROVIDERS: PCP Family Medicine Adult Medicine; Visit Provider Family Medicine Adult Medicine
DX: I10 Essential (primary) hypertension (principal); E78.5 Hyperlipidemia, unspecified; E11.69 Type 2 diabetes mellitus with other specified complication; E66.9 Obesity, unspecified; I69.993 Ataxia following unspecified cerebrovascular disease; E11.42 Type 2 diabetes mellitus with diabetic polyneuropathy; E11.22 Type 2 diabetes mellitus with diabetic chronic kidney disease; N18.30 Chronic kidney disease, stage 3 unspecified
CPT/HCPCS: 80053; 80061; 83036; 84443; 85025

== ENCOUNTER → 2023-07-06 14:02 | Outpatient (BNVA) | payer MEDICARE, MEDICAID, SELFPAY ==
[2020-07-16 16:55] VITALS: BP 105/75; BMI 39.2
== END ==
PROVIDERS: PCP Family Medicine Adult Medicine; Visit Provider Family Medicine Adult Medicine
DX: E11.69 Type 2 diabetes mellitus with other specified complication (principal); E66.9 Obesity, unspecified
CPT/HCPCS: 83036

== ENCOUNTER → 2023-09-28 09:16 | Outpatient (BNVA) | payer MEDICARE, SELFPAY ==
[2020-07-16 16:55] VITALS: BP 105/75; BMI 39.2
== END ==
PROVIDERS: PCP Family Medicine Adult Medicine; Visit Provider Thoracic Surgery (Cardiothoracic Vascular Surgery)
DX: E11.621 Type 2 diabetes mellitus with foot ulcer (principal); E11.52 Type 2 diabetes mellitus with diabetic peripheral angiopathy with gangrene; L97.521 Non-pressure chronic ulcer of other part of left foot limited to breakdown of skin
CPT/HCPCS: 87070; 87077; 87176; 87186; 87205; 97597; 99213

== ENCOUNTER → 2023-10-03 15:26 | Outpatient (BNVA) | payer MEDICARE, SELFPAY ==
[2020-07-16 16:55] VITALS: BP 105/75; BMI 39.2
== END ==
PROVIDERS: PCP Family Medicine Adult Medicine; Visit Provider Internal Medicine Cardiovascular Disease
DX: Z13.6 Encounter for screening for cardiovascular disorders (principal)
CPT/HCPCS: 93005

== ENCOUNTER 2023-10-05 12:11 | Outpatient (CLI) | payer MEDICARE, SELFPAY ==
[2020-07-16 16:55] VITALS: BP 105/75; BMI 39.2
--- NOTE | 2023-10-05 12:16 | XR_ITS ---
WS: [id number] Exam: XR toe LT min 2V [id number] Date/Time of Exam: 10/05/2023 12:32 PM Reason For Exam: non-healing ulcer left great toe; rule out osteomyelitis The great toe is targeted for radiographic evaluation. No acute fracture or bone destruction. Soft tissue swelling of the great toe. No radiopaque foreign b odies are visualized. IMPRESSION: 1. No fracture or bone destruction. Soft tissue swelling.
== END 2023-10-05 12:12 | disposition home or self-care (01) ==
LOC: RAD 12:13
PROVIDERS: PCP Family Medicine Adult Medicine; Visit Provider Thoracic Surgery (Cardiothoracic Vascular Surgery)
DX: E11.621 Type 2 diabetes mellitus with foot ulcer (principal); L97.529 Non-pressure chronic ulcer of other part of left foot with unspecified severity
CPT/HCPCS: 73660; 97597

== ENCOUNTER → 2023-10-06 08:53 | Outpatient (BNVA) | payer MEDICARE, SELFPAY ==
[2020-07-16 16:55] VITALS: BP 105/75; BMI 39.2
== END ==
PROVIDERS: PCP Family Medicine Adult Medicine; Visit Provider Nurse Practitioner Psychiatric/Mental Health
DX: F31.81 Bipolar II disorder (principal)
CPT/HCPCS: 80061

== ENCOUNTER → 2023-10-11 14:59 | Outpatient (BNVA) | payer MEDICARE, SELFPAY ==
[2020-07-16 16:55] VITALS: BP 105/75; BMI 39.2
== END ==
PROVIDERS: PCP Family Medicine Adult Medicine; Visit Provider Thoracic Surgery (Cardiothoracic Vascular Surgery)
DX: E11.52 Type 2 diabetes mellitus with diabetic peripheral angiopathy with gangrene (principal); E11.621 Type 2 diabetes mellitus with foot ulcer; L97.521 Non-pressure chronic ulcer of other part of left foot limited to breakdown of skin
CPT/HCPCS: 97597; A6248

== ENCOUNTER → 2023-10-18 09:20 | Outpatient (BNVA) | payer MEDICARE, SELFPAY ==
[2023-10-12 11:43] VITALS: BP 149/87; BMI 40.1
== END ==
PROVIDERS: PCP Family Medicine Adult Medicine; Visit Provider Thoracic Surgery (Cardiothoracic Vascular Surgery)
DX: E11.52 Type 2 diabetes mellitus with diabetic peripheral angiopathy with gangrene (principal); E11.621 Type 2 diabetes mellitus with foot ulcer; L97.421 Non-pressure chronic ulcer of left heel and midfoot limited to breakdown of skin
CPT/HCPCS: 97597

== ENCOUNTER → 2023-10-25 10:38 | Outpatient (BNVA) | payer MEDICARE, SELFPAY ==
[2023-10-12 11:43] VITALS: BP 149/87; BMI 40.1
== END ==
PROVIDERS: PCP Family Medicine Adult Medicine; Visit Provider Thoracic Surgery (Cardiothoracic Vascular Surgery)
DX: E11.52 Type 2 diabetes mellitus with diabetic peripheral angiopathy with gangrene (principal); E11.621 Type 2 diabetes mellitus with foot ulcer; L97.421 Non-pressure chronic ulcer of left heel and midfoot limited to breakdown of skin
CPT/HCPCS: 97597

== ENCOUNTER → 2023-10-27 09:36 | Outpatient (BNVA) | payer MEDICARE, SELFPAY ==
[2023-10-12 11:43] VITALS: BP 149/87; BMI 40.1
== END ==
PROVIDERS: PCP Family Medicine Adult Medicine; Visit Provider Nurse Practitioner Psychiatric/Mental Health
DX: Z79.899 Other long term (current) drug therapy (principal)
CPT/HCPCS: 80053; 80164

== ENCOUNTER → 2023-11-01 11:15 | Outpatient (BNVA) | payer MEDICARE, SELFPAY ==
[2023-10-12 11:43] VITALS: BP 149/87; BMI 40.1
== END ==
PROVIDERS: PCP Family Medicine Adult Medicine; Visit Provider Thoracic Surgery (Cardiothoracic Vascular Surgery)
DX: E11.52 Type 2 diabetes mellitus with diabetic peripheral angiopathy with gangrene (principal); E11.621 Type 2 diabetes mellitus with foot ulcer; L97.522 Non-pressure chronic ulcer of other part of left foot with fat layer exposed; E11.622 Type 2 diabetes mellitus with other skin ulcer; L97.811 Non-pressure chronic ulcer of other part of right lower leg limited to breakdown of skin
CPT/HCPCS: 97597

== ENCOUNTER → 2023-11-08 10:43 | Outpatient (BNVA) | payer MEDICARE, SELFPAY ==
[2023-10-12 11:43] VITALS: BP 149/87; BMI 40.1
== END ==
PROVIDERS: PCP Family Medicine Adult Medicine; Visit Provider Thoracic Surgery (Cardiothoracic Vascular Surgery)
DX: E11.52 Type 2 diabetes mellitus with diabetic peripheral angiopathy with gangrene (principal); E11.621 Type 2 diabetes mellitus with foot ulcer; L97.521 Non-pressure chronic ulcer of other part of left foot limited to breakdown of skin; E11.622 Type 2 diabetes mellitus with other skin ulcer; L97.811 Non-pressure chronic ulcer of other part of right lower leg limited to breakdown of skin
CPT/HCPCS: 97597; A6212

== ENCOUNTER → 2023-11-22 10:19 | Outpatient (BNVA) | payer MEDICARE, SELFPAY ==
[2023-10-12 11:43] VITALS: BP 149/87; BMI 40.1
== END ==
PROVIDERS: PCP Family Medicine Adult Medicine; Visit Provider Thoracic Surgery (Cardiothoracic Vascular Surgery)
DX: E11.52 Type 2 diabetes mellitus with diabetic peripheral angiopathy with gangrene (principal); E11.621 Type 2 diabetes mellitus with foot ulcer; L97.421 Non-pressure chronic ulcer of left heel and midfoot limited to breakdown of skin; E11.622 Type 2 diabetes mellitus with other skin ulcer; L97.811 Non-pressure chronic ulcer of other part of right lower leg limited to breakdown of skin
CPT/HCPCS: 97597

== ENCOUNTER → 2024-01-10 10:13 | Outpatient (BNVA) | payer MEDICARE, MEDICAID, SELFPAY ==
[2023-10-12 11:43] VITALS: BP 149/87; BMI 40.1
== END ==
PROVIDERS: PCP Family Medicine Adult Medicine; Visit Provider Thoracic Surgery (Cardiothoracic Vascular Surgery)
DX: Z51.89 Encounter for other specified aftercare (principal)
CPT/HCPCS: 99213

== ENCOUNTER → 2024-01-17 10:26 | Outpatient (BNVA) | payer MEDICARE, MEDICAID, SELFPAY ==
[2023-10-12 11:43] VITALS: BP 149/87; BMI 40.1
== END ==
PROVIDERS: PCP Family Medicine Adult Medicine; Visit Provider Thoracic Surgery (Cardiothoracic Vascular Surgery)
DX: E11.52 Type 2 diabetes mellitus with diabetic peripheral angiopathy with gangrene (principal); E11.621 Type 2 diabetes mellitus with foot ulcer; L97.521 Non-pressure chronic ulcer of other part of left foot limited to breakdown of skin
CPT/HCPCS: 97597; A6212

== ENCOUNTER → 2024-01-24 10:43 | Outpatient (BNVA) | payer MEDICARE, MEDICAID, SELFPAY ==
[2023-10-12 11:43] VITALS: BP 149/87; BMI 40.1
== END ==
PROVIDERS: PCP Family Medicine Adult Medicine; Visit Provider Thoracic Surgery (Cardiothoracic Vascular Surgery)
DX: Z09 Encounter for follow-up examination after completed treatment for conditions other than malignant neoplasm (principal); Z87.2 Personal history of diseases of the skin and subcutaneous tissue
CPT/HCPCS: 99212

== ENCOUNTER → 2024-02-07 09:58 | Outpatient (BNVA) | payer MEDICARE, MEDICAID, SELFPAY ==
[2023-10-12 11:43] VITALS: BP 149/87; BMI 40.1
== END ==
PROVIDERS: PCP Family Medicine Adult Medicine; Visit Provider Thoracic Surgery (Cardiothoracic Vascular Surgery)
DX: Z09 Encounter for follow-up examination after completed treatment for conditions other than malignant neoplasm (principal); L84 Corns and callosities
CPT/HCPCS: 99212

== ENCOUNTER 2024-07-19 18:26 | Observation (INO) | payer MEDICARE, MEDICAID, SELFPAY ==
[2023-10-12 11:43] VITALS: BP 149/87; BMI 40.1
[2024-07-19] VITALS (31 sets, daily range): BP systolic 101–136; BP diastolic 62–87; PULSE 96–111; RESP 10–21; TEMP 36.8–37.3; O2SAT 89–100; BMI 36.5
[2024-07-19 19:21] LABS: INR 1.05 (0.8-1.2)
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
[2024-07-19 19:25] LABS: Alanine Aminotransferase 6 U/L (0-33); Albumin Level 3.9 g/dL (3.5-5.2); Alkaline Phosphatase 84 U/L (35-105); Anion Gap 14.4 (5-19); Aspartate Amino Transferase 12 U/L (0-32); Blood Urea Nitrogen 19 mg/dL (8-23); Calcium 9.6 mg/dL (8.5-10.5); Carbon Dioxide 26 mmol/L (22-29); Chloride 99 mmol/L (98-107); Creatinine Clr Calc Pharmacy 79.4839; Globulin 3.7 g/dL (1.3-4.6); Glomerular Filtration Rate 62.6 mL/min (90-130); Glucose 107 mg/dL (65-115); Osmolality Calculated 285 mOsm/kg (285-295); Potassium 3.4 mmol/L (3.5-5.1); Sodium 136 mmol/L (136-145); Total Bilirubin 0.4 mg/dL (0.15-1.2); Total Protein 7.6 g/dL (6.6-8.7)
[2024-07-19 19:31] LABS: Basophils # 0.1 10^3/uL (0.0-0.1); Eosinophils # 0.2 10^3/uL (0.0-0.8); Eosinophils % 1.5 %; Lymphocytes # 2.1 10^3/uL (0.8-4.8); Lymphocytes % 21.1 %; Mean Corpuscular HGB Conc 25.9 g/dL (30-55); Mean Corpuscular Hemoglobin 16.6 pg (27-33); Mean Corpuscular Volume 64.1 fl (85-98); Mean Platelet Volume 8.8 fL (7.4-10.4); Monocytes # 0.4 10^3/uL (0.2-0.9); Monocytes % 3.5 %; Neutrophils # 7.33 10^3/uL (1.8-7.7); Neutrophils % 72.4 %; Nucleated Red Blood Cells % 0.2 %; Platelet Count 431 10^3/cmm (157-399); Red Cell Distribution Width 21.1 % (12.1-15.1); White Blood Count 10.11 10^3/uL (3.29-11.43)
[2024-07-19 19:33] LABS: Hematocrit 20.5 % (36-47)
[2024-07-19 19:55] LABS: Reticulocyte % 1.7 % (0.5-2.0)
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
[2024-07-19 20:11] LABS: Ferritin 9 ng/mL (15-150); Iron 15 ug/dL (37-145); Percent Saturation 3.6 % (20-50); Total Iron Binding Capacity 416 mcg/dl; Unsaturated Iron Binding 401 ug/dL (112-347)
[2024-07-19 20:35] LABS: Transferrin 349 mg/dL (200-360)
[2024-07-19 20:49] LABS: Iron 14 ug/dL (37-145); Lactate Dehydrogenase 124 U/L (135-214)
[2024-07-19] MEDS: ropinirole 2 mg Tablet PO (21:29)
--- NOTE | 2024-07-19 22:05 | PC.NURSE ---
SUICIDE RISK ASSESSMENT during admission patient was asked the suicide risk assessment questions. when responding to if within the last few months had thoughts of wanting to harm herself or go to sleep and not wake up, the patient responded, May 16. I wanted to go to sleep after my son in law passed. He was my boy This nurse asked if she still had those thoughts to which the patient denied any active thoughts of suicidal ideation and that she doesn't feel that way anymore. the patient stating that she is seeing Faustino at [facility] for her depression. Dr Lopez was notified per suicide assessment trigger r/t her response along with information that she is being see at [facility].
[2024-07-19 22:14] LABS: Bilirubin Urine Negative (Negative); Blood Urine Negative (Negative); Glucose Urine UA Negative (Normal); Ketones Urine Negative (Negative); Leukocyte Esterase Urine Negative (Negative); Nitrate Urine Negative (Negative); Protein Urine Negative (Negative); Specific Gravity, Urine 1.016 (1.005-1.030); Urine Appearance Clear (CLEAR); Urine Color Yellow (Yellow); pH Urine 5.5 (5-7)
[2024-07-19 22:19] LABS: Add Urine Microscopic? YES; Bacteria Urine None Seen /hpf; Hyaline Casts Urine 5.36 /lpf; RBC Urine 0-2 /hpf (0-2); Squamous Epithelial Cell Urine 0-5 /hpf (0-5); WBC Urine 0-5 /hpf (0-5)
[2024-07-20] VITALS (20 sets, daily range): BP systolic 102–148; BP diastolic 60–82; PULSE 88–111; RESP 14–20; TEMP 36.5–37.4; O2SAT 93–98
[2024-07-20] MEDS: iron sucrose 20 mg/mL SDV 200 MG IVP (00:30)
[2024-07-20 01:03] LABS: Vitamin B12 290 pg/mL (232-1245)
[2024-07-20] MEDS: benzocaine 20% 7 gm 1 APPLIC MUCOUS MEM (02:38)
[2024-07-20] MEDS: TORSEmide 20 mg Tablet 40 MG PO (05:17)
[2024-07-20] MEDS: venlafaxine ER (24HR) 150 mg Capsule PO (05:17)
[2024-07-20 05:30] LABS: Basophils # 0.1 10^3/uL (0.0-0.1); Basophils % 0.8 %; Eosinophils # 0.2 10^3/uL (0.0-0.8); Eosinophils % 1.7 %; Hematocrit 24.2 % (36-47); Lymphocytes # 1.8 10^3/uL (0.8-4.8); Lymphocytes % 18.4 %; Mean Corpuscular HGB Conc 28.1 g/dL (30-55); Mean Corpuscular Hemoglobin 19.2 pg (27-33); Mean Corpuscular Volume 68.2 fl (85-98); Mean Platelet Volume 9.1 fL (7.4-10.4); Monocytes # 0.4 10^3/uL (0.2-0.9); Neutrophils # 7.36 10^3/uL (1.8-7.7); Neutrophils % 74.5 %; Nucleated Red Blood Cells % 0 %; Platelet Count 390 10^3/cmm (157-399); Red Blood Count 3.55 10^6/uL (3.85-5.65); Red Cell Distribution Width 22.8 % (12.1-15.1); White Blood Count 9.89 10^3/uL (3.29-11.43)
[2024-07-20 06:09] LABS: Alanine Aminotransferase < 5 U/L (0-33); Albumin Level 3.5 g/dL (3.5-5.2); Alkaline Phosphatase 85 U/L (35-105); Anion Gap 15.3 (5-19); Aspartate Amino Transferase 11 U/L (0-32); Blood Urea Nitrogen 19 mg/dL (8-23); Calcium 9.6 mg/dL (8.5-10.5); Carbon Dioxide 25 mmol/L (22-29); Chloride 101 mmol/L (98-107); Creatinine Clr Calc Pharmacy 82.7597; Globulin 3.4 g/dL (1.3-4.6); Glomerular Filtration Rate 62.6 mL/min (90-130); Glucose 120 mg/dL (65-115); Magnesium 1.7 mg/dL (1.7-2.3); Osmolality Calculated 289 mOsm/kg (285-295); Phosphorus 3.4 mg/dL (2.5-4.5); Potassium 3.3 mmol/L (3.5-5.1); Sodium 138 mmol/L (136-145); Total Bilirubin 0.7 mg/dL (0.15-1.2); Total Protein 6.9 g/dL (6.6-8.7)
--- NOTE | 2024-07-20 07:54 | PC.PHAR ---
patient states she has a nurse from [email or web address] do her meds
[2024-07-20] MEDS: ropinirole 2 mg Tablet PO ×3 (09:50→20:03)
[2024-07-20] MEDS: doxycycline 100 mg Tablet PO ×2 (09:50→18:38)
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
--- NOTE | 2024-07-20 14:52 | PC.NURSE ---
This RN initiates blood for OTONIEL Guzman. After initiation, OTONIEL Guzman takes over care.
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
[2024-07-20 19:02] LABS: Basophils # 0.1 10^3/uL (0.0-0.1); Basophils % 0.8 %; Eosinophils # 0.2 10^3/uL (0.0-0.8); Eosinophils % 1.6 %; Hematocrit 29.2 % (36-47); Lymphocytes # 1.7 10^3/uL (0.8-4.8); Lymphocytes % 16.1 %; Mean Corpuscular HGB Conc 28.8 g/dL (30-55); Mean Corpuscular Volume 69.5 fl (85-98); Mean Platelet Volume 8.9 fL (7.4-10.4); Monocytes # 0.3 10^3/uL (0.2-0.9); Neutrophils # 8.47 10^3/uL (1.8-7.7); Neutrophils % 78.1 %; Nucleated Red Blood Cells % 0.2 %; Platelet Count 372 10^3/cmm (157-399); Red Cell Distribution Width 23.2 % (12.1-15.1); White Blood Count 10.84 10^3/uL (3.29-11.43)
[2024-07-21] MEDS: gabapentin 400 mg Capsule PO ×2 (01:59→09:02)
[2024-07-21 03:59] LABS: Basophils # 0.1 10^3/uL (0.0-0.1); Basophils % 0.8 %; Eosinophils # 0.2 10^3/uL (0.0-0.8); Eosinophils % 1.3 %; Hematocrit 28.3 % (36-47); Lymphocytes # 2.3 10^3/uL (0.8-4.8); Lymphocytes % 18.9 %; Mean Corpuscular Hemoglobin 20.2 pg (27-33); Mean Corpuscular Volume 69.9 fl (85-98); Mean Platelet Volume 9.2 fL (7.4-10.4); Monocytes # 0.4 10^3/uL (0.2-0.9); Monocytes % 3.2 %; Neutrophils # 9.02 10^3/uL (1.8-7.7); Neutrophils % 75.2 %; Nucleated Red Blood Cells % 0.2 %; Platelet Count 369 10^3/cmm (157-399); Red Blood Count 4.05 10^6/uL (3.85-5.65); Red Cell Distribution Width 23.1 % (12.1-15.1); White Blood Count 11.98 10^3/uL (3.29-11.43)
[2024-07-21 04:00] VITALS: BP 127/93; PULSE 94; RESP 19; TEMP 36.9; O2SAT 97
[2024-07-21] MEDS: venlafaxine ER (24HR) 150 mg Capsule PO (05:38)
[2024-07-21] MEDS: TORSEmide 20 mg Tablet 40 MG PO (05:38)
[2024-07-21 07:15] VITALS: BP 114/70; PULSE 106; RESP 20; TEMP 36.7; O2SAT 94
[2024-07-21 07:56] VITALS: PULSE 101; RESP 18; O2SAT 95
[2024-07-21] MEDS: pantoprazole 40 mg SDV IVP (09:02)
[2024-07-21] MEDS: ropinirole 2 mg Tablet PO (09:02)
[2024-07-21] MEDS: doxycycline 100 mg Tablet PO (09:02)
[2024-07-21 10:28] VITALS: BP 114/70; PULSE 106; RESP 20; TEMP 36.7; O2SAT 94
== END 2024-07-21 10:15 | disposition home or self-care (01) ==
LOC: ER 20:34 → MEDSURG 21:09
PROVIDERS: Admitting Provider Internal Medicine; Emergency Provider Emergency Medicine; PCP Family Medicine; Visit Provider Student in an Organized Health Care Education/Training Program
DX: E11.69 Type 2 diabetes mellitus with other specified complication (principal); E66.01 Morbid (severe) obesity due to excess calories; Z68.38 Body mass index [BMI] 38.0-38.9, adult; E11.621 Type 2 diabetes mellitus with foot ulcer; E11.622 Type 2 diabetes mellitus with other skin ulcer; I12.9 Hypertensive chronic kidney disease with stage 1 through stage 4 chronic kidney disease, or unspecified chronic kidney disease; N18.2 Chronic kidney disease, stage 2 (mild); L97.529 Non-pressure chronic ulcer of other part of left foot with unspecified severity; K21.9 Gastro-esophageal reflux disease without esophagitis; D64.9 Anemia, unspecified; J43.1 Panlobular emphysema; G47.33 Obstructive sleep apnea (adult) (pediatric); D50.9 Iron deficiency anemia, unspecified; Z79.01 Long term (current) use of anticoagulants; Z79.84 Long term (current) use of oral hypoglycemic drugs
CPT/HCPCS: 36415; 36430; 80053; 81001; 82607; 82728; 82962; 83540; 83550; 83615; 83735; 84100; 84466; 85018; 85025; 85045; 85610; 86850; 86880; 86900; 86920; 96374; 99285; G0378; J1756; J2470; P9016

== ENCOUNTER → 2024-08-10 13:43 | Outpatient (BNVA) | payer MEDICAID, SELFPAY ==
[2023-10-12 11:43] VITALS: BP 149/87; BMI 40.1
== END ==
PROVIDERS: PCP Family Medicine; Visit Provider Family Medicine
DX: R39.9 Unspecified symptoms and signs involving the genitourinary system (principal); I15.2 Hypertension secondary to endocrine disorders; E78.5 Hyperlipidemia, unspecified; E11.69 Type 2 diabetes mellitus with other specified complication; E11.42 Type 2 diabetes mellitus with diabetic polyneuropathy; N18.30 Chronic kidney disease, stage 3 unspecified; E66.9 Obesity, unspecified; K21.9 Gastro-esophageal reflux disease without esophagitis; E11.22 Type 2 diabetes mellitus with diabetic chronic kidney disease; N39.0 Urinary tract infection, site not specified; D50.9 Iron deficiency anemia, unspecified; I69.993 Ataxia following unspecified cerebrovascular disease; G25.81 Restless legs syndrome
CPT/HCPCS: 80053; 81000; 82043; 83036; 83550; 84439; 84443; 85025; 87077; 87086; 87184

== ENCOUNTER → 2024-08-30 09:55 | Outpatient (BNVA) | payer MEDICARE, MEDICAID, SELFPAY ==
[2023-10-12 11:43] VITALS: BP 149/87; BMI 40.1
== END ==
PROVIDERS: PCP Family Medicine; Visit Provider Podiatrist Foot & Ankle Surgery
DX: E11.8 Type 2 diabetes mellitus with unspecified complications (principal); E11.69 Type 2 diabetes mellitus with other specified complication; E66.9 Obesity, unspecified; L84 Corns and callosities; Z79.84 Long term (current) use of oral hypoglycemic drugs
CPT/HCPCS: 99203

== ENCOUNTER 2024-09-13 06:16 | Observation (INO) | payer MEDICARE, MEDICAID, SELFPAY ==
[2023-10-12 11:43] VITALS: BP 149/87; BMI 40.1
[2024-09-13] VITALS (16 sets, daily range): BP systolic 95–160; BP diastolic 55–83; PULSE 95–132; RESP 16–20; TEMP 37.1–39.6; O2SAT 91–99; BMI 36.5; BMI 37.4
--- NOTE | 2024-09-13 06:17 | ECG_ITS ---
[facility]: 2024-09-13 Pat Name: Brandon Camacho Department: Room: Gender: Female Knowledge Analyst: : 1955 Requested By: Rio Bergeron Order Number: [id number] Gerda MD: Jeff Kumar M.D. Measurements Intervals [place] Rate: 129 P: 51 MA: 153 QRS: 70 QRSD: 90 T: 59 QT: 319 QTc: 469 Interpretive Statements SINUS TACHYCARDIA LOW QRS VOLTAGE IN PRECORDIAL LEADS [QRS DEFLECTION < 1.0 mV IN CHEST LEADS] Compared to ECG 10/03/2023 15:31:41 Sinus rhythm no longer present Electronically Signed On 09-13-2024 21:51:57 SPEECH COACH by Jeff Kumar M.D. [id number]
--- NOTE | 2024-09-13 06:17 | XRR_ITS ---
PROCEDURE INFORMATION: Exam: XR Chest Exam date and time: 09/13/2024 6:26 AM Age: 68 years old Clinical indication: Sternal or substernal pain; Additional info: Dyspnea/cough TECHNIQUE: Imaging protocol: Radiologic exam of the chest. Views: 1 view. Total images: 1 COMPARISON: Chest x-ray 05/28/2022 FINDINGS: Lungs: Clear. Pleural spaces: No pleural effusion identified. Heart/Mediastinum: Cardiomediastinal silhouette is stable.. Bones/joints: No acute osseous abnormality identified. XR/XR chest 1V portable [id number] IMPRESSION: 1. No acute cardiopulmonary abnormality identified.
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
[2024-09-13 06:48] LABS: Basophils # 0.1 10^3/uL (0.0-0.1); Basophils % 0.8 %; Eosinophils # 0.1 10^3/uL (0.0-0.8); Hematocrit 31.4 % (36-47); Lymphocytes # 0.7 10^3/uL (0.8-4.8); Lymphocytes % 8.7 %; Mean Corpuscular HGB Conc 29.3 g/dL (30-55); Mean Corpuscular Hemoglobin 23.5 pg (27-33); Mean Corpuscular Volume 80.3 fl (85-98); Monocytes # 0.3 10^3/uL (0.2-0.9); Monocytes % 3.3 %; Neutrophils # 7.11 10^3/uL (1.8-7.7); Neutrophils % 85.6 %; Nucleated Red Blood Cells % 0 %; Platelet Count 300 10^3/cmm (157-399); Red Blood Count 3.91 10^6/uL (3.85-5.65); Red Cell Distribution Width 27.5 % (12.1-15.1)
[2024-09-13] MEDS: acetaminophen 325 mg Tablet 650 MG PO ×2 (07:04→19:36)
[2024-09-13] MEDS: sodium chloride 0.9% 500 ML 999 ML IV ×2 (07:04→08:02)
[2024-09-13 07:06] LABS: Lactic Sepsis W/Reflex 1.9 mmol/L (0.5-2.2)
[2024-09-13 07:07] LABS: Bilirubin Urine Negative (Negative); Blood Urine Negative (Negative); Glucose Urine UA Negative (Normal); Ketones Urine Negative (Negative); Leukocyte Esterase Urine Negative (Negative); Nitrate Urine Negative (Negative); Protein Urine Negative (Negative); Specific Gravity, Urine 1.014 (1.005-1.030); Urine Appearance Clear (CLEAR); Urine Color Yellow (Yellow); Urobilinogen Urine 0.2 mg/dL (Negative); pH Urine 5.5 (5-7)
[2024-09-13 07:07] LABS: Alanine Aminotransferase 6 U/L (0-33); Alkaline Phosphatase 81 U/L (35-105); Anion Gap 17.9 (5-19); Aspartate Amino Transferase 11 U/L (0-32); Blood Urea Nitrogen 14 mg/dL (8-23); Calcium 9.5 mg/dL (8.5-10.5); Carbon Dioxide 25 mmol/L (22-29); Chloride 99 mmol/L (98-107); Creatinine Clr Calc Pharmacy 71.5355; Globulin 3.8 g/dL (1.3-4.6); Glomerular Filtration Rate 55.5 mL/min (90-130); Glucose 129 mg/dL (65-115); Osmolality Calculated 288 mOsm/kg (285-295); Potassium 3.9 mmol/L (3.5-5.1); Sodium 138 mmol/L (136-145); Total Bilirubin 0.3 mg/dL (0.15-1.2); Total Protein 7.8 g/dL (6.6-8.7)
[2024-09-13] MEDS: ipratropium-albuterol 3 mL Neb INHALATION ×2 (07:10→21:09)
[2024-09-13 07:11] LABS: Add Urine Microscopic? YES; Bacteria Urine Trace /hpf; Hyaline Casts Urine 2.87 /lpf; RBC Urine 0-2 /hpf (0-2); Squamous Epithelial Cell Urine 0-5 /hpf (0-5); WBC Urine 0-5 /hpf (0-5)
[2024-09-13 07:27] LABS: Influenza A POSITIVE (Negative); Influenza B NEGATIVE (Negative); Respiratory Syncytial Virus Ce NEGATIVE (Negative); SARS-CoV-2 PCR NEGATIVE (Negative)
--- NOTE | 2024-09-13 08:14 | CT_ITS ---
WS: [id number] CT CHEST ANGIOGRAPHY WITH REFORMATS HISTORY: Tachycardia hypoxia TECHNIQUE: Contiguous axial images are obtained through the chest during arterial injection of intravenous contrast. Images are reconstructed to evaluate the pulmonary arteries. MIP imaging also reviewed. All CT scans at [facility] use at least one of these dose optimization techniques: automated exposure control; mA and/or kV adjustment per patient size (includes targeted exams where dose is matched to clinical indication); or iterative reconstruction. CONTRAST: Omnipaque 350; 100 mL IV. DLP: 1012.68 mGy.cm COMPARISON: 07/16/2022, 07/09/2019 Good opacification of the pulmonary arteries. No pulmonary emboli. No RIGHT heart strain. Normal size heart. Slight increased amount of pericardial fat. Very mild atherosclerosis aorta. Normal size aorta. Mediastinal and hilar lymph nodes are enlarged. RIGHT paratracheal lymph node is 1.5 cm. LEFT hilar lymph node 1.9 cm. Additional LEFT peribronchial increased lymphoid tissue. Mild crowding of the lung markings probably improved with better inspiration. 9 mm pulmonary nodule RIGHT upper lobe, image 17 of series 14. Stable 3 mm nodule periphery RIGHT upper lobe, image 17 of series 14. Liver appears slightly enlarged. The entire liver is not included. Hepatic steatosis. LEFT adrenal gland mass is low-attenuation measuring 2.4 x 1.5 cm. No interval change since 07/16/2022. With no history of malignancy this is likely an adenoma. Gallbladder is normally distended with no adjacent inflammation. Tiny calcification upper pole LEFT kidney. No destructive bone lesions. CT/CT angio chest PE protcl [id number] IMPRESSION: 1. No pulmonary embolism. 2. No RIGHT heart strain. 3. RIGHT upper lobe 9 mm pulmonary nodule, new since 07/16/2022. Recommend foll ow-up chest CT in 3 months. 4. Enlarged, indeterminate mediastinal and hilar lymphadenopathy. May be react greg adenopathy. This can be followed up in 3 months also after treatment. 5. LEFT adrenal gland nodularity/mass. Present since 2019 with slight increase in size.
[2024-09-13] MEDS: ibuprofen 800 mg tablet PO (08:16)
--- NOTE | 2024-09-13 08:18 | PC.NURSE ---
Pt placed on 2LNC due toO2 in upper 80s on roomair
[2024-09-13] MEDS: iohexol 350 mg/mL 500 mL Btl (per mL) IV (08:58)
--- NOTE | 2024-09-13 10:26 | PC.PHAR ---
[facility]ist [facility] [phone] is faxing med list (nurse is Kristin).
[2024-09-13] MEDS: oseltamivir phosphate 75 mg Capsule PO ×2 (12:22→23:14)
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
[2024-09-13 16:58] LABS: Glucose Point of Care 120 mg/dL (70-110)
[2024-09-13] MEDS: enoxaparin 40 mg/0.4 mL Syringe SUBCUT (18:06)
[2024-09-13] MEDS: propranolol 20 mg Tablet PO (18:07)
[2024-09-13] MEDS: guaiFENesin-dextromethorphan UDC 10 mL PO ×2 (18:24→23:13)
[2024-09-13] MEDS: gabapentin 400 mg Capsule PO (20:34)
[2024-09-13] MEDS: benzonatate 100 mg Capsule 200 MG PO (20:34)
[2024-09-13] MEDS: ropinirole 2 mg Tablet PO (20:34)
[2024-09-13] MEDS: atorvastatin 40 mg Tablet PO (20:34)
[2024-09-13 20:41] LABS: Glucose Point of Care 130 mg/dL (70-110)
[2024-09-13] MEDS: hyDROXYzine 25 mg Capsule 50 MG PO (23:13)
--- NOTE | 2024-09-14 02:48 | PC.NURSE ---
Patient was anxious so nurse contacted Dr. Lopez at 2250 to see if home medication Hydroxyzine could be started. Dr. Lopez agreed. Order was placed for 50 mg PO Hydroxyzine PRN BID. Nurse administered medication as ordered.
[2024-09-14 03:44] VITALS: BP 159/87; PULSE 101; RESP 23; TEMP 38.1; O2SAT 91
[2024-09-14] MEDS: zonisamide 100 MG Capsule 500 MG PO (05:20)
[2024-09-14] MEDS: pantoprazole DR 40 mg Tablet PO (05:20)
[2024-09-14 05:22] LABS: Basophils % 0.6 %; Eosinophils % 0.3 %; Lymphocytes # 0.9 10^3/uL (0.8-4.8); Mean Corpuscular HGB Conc 28.5 g/dL (30-55); Mean Corpuscular Hemoglobin 23.4 pg (27-33); Mean Corpuscular Volume 82.1 fl (85-98); Mean Platelet Volume 9.3 fL (7.4-10.4); Monocytes # 0.4 10^3/uL (0.2-0.9); Monocytes % 6.4 %; Neutrophils # 5.15 10^3/uL (1.8-7.7); Neutrophils % 79.1 %; Nucleated Red Blood Cells % 0 %; Platelet Count 271 10^3/cmm (157-399); Red Blood Count 4.02 10^6/uL (3.85-5.65); Red Cell Distribution Width 27.1 % (12.1-15.1); White Blood Count 6.52 10^3/uL (3.29-11.43)
--- NOTE | 2024-09-14 05:40 | PC.NURSE ---
This nurse recieved critical blood culture result at 05. Nurse then notified Dr. Lopez at 05. Awaiting response from Will continue to monitor.
[2024-09-14 05:47] LABS: Anion Gap 14.7 (5-19); Blood Urea Nitrogen 13 mg/dL (8-23); Calcium 9.5 mg/dL (8.5-10.5); Carbon Dioxide 27 mmol/L (22-29); Chloride 100 mmol/L (98-107); Creatinine Clr Calc Pharmacy 83.1825; Glomerular Filtration Rate 62.6 mL/min (90-130); Glucose 108 mg/dL (65-115); Osmolality Calculated 287 mOsm/kg (285-295); Potassium 3.7 mmol/L (3.5-5.1); Sodium 138 mmol/L (136-145)
[2024-09-14 06:33] LABS: Glucose Point of Care 132 mg/dL (70-110)
[2024-09-14 06:36] LABS: Bacillus cereus group Not Detected (NOT DETECT); Bacillus subtillis group Not Detected (NOT DETECT); Corynebacterium Not Detected (NOT DETECT); Cutibacterium acnes (P.acnes) Not Detected (NOT DETECT); Enterococcus Not Detected (NOT DETECT); Enterococcus faecalis Not Detected (NOT DETECT); Enterococcus faecium Not Detected (NOT DETECT); Lactobacillus species Not Detected (NOT DETECT); Listeria Not Detected (NOT DETECT); Listeria monocytogenes Not Detected (NOT DETECT); Micrococcus Not Detected (NOT DETECT); Pan Candida Not Detected (NOT DETECT); Pan Gram-Negative Not Detected (NOT DETECT); Staphylococcus epidermidis Detected (NOT DETECT); Staphylococcus lugdunensis Not Detected (NOT DETECT); Staphylococcus species Detected (NOT DETECT); Streptococcus agalactiae Not Detected (NOT DETECT); Streptococcus anginosus group Not Detected (NOT DETECT); Streptococcus pneumoniae Not Detected (NOT DETECT); Streptococcus pyogenes Not Detected (NOT DETECT); Streptococcus species Not Detected (NOT DETECT); mecA Not Detected (NOT DETECT); mecC Not Detected (NOT DETECT)
[2024-09-14 08:00] VITALS: BP 134/86; PULSE 100; PULSE 110; RESP 16; RESP 20; TEMP 37.2; O2SAT 92; O2SAT 95
[2024-09-14] MEDS: ferrous sulfate EC 325 mg Tablet PO (08:45)
[2024-09-14] MEDS: gabapentin 400 mg Capsule PO (08:45)
[2024-09-14] MEDS: levothyroxine 25 mcg Tablet PO (08:45)
[2024-09-14] MEDS: benzonatate 100 mg Capsule 200 MG PO (08:45)
[2024-09-14] MEDS: venlafaxine ER (24HR) 37.5 mg Capsule PO (08:45)
[2024-09-14] MEDS: venlafaxine ER (24HR) 150 mg Capsule PO (08:46)
[2024-09-14] MEDS: ropinirole 2 mg Tablet PO (08:46)
[2024-09-14] MEDS: propranolol 20 mg Tablet PO (08:46)
[2024-09-14 09:46] VITALS: O2SAT 87; O2SAT 91; O2SAT 94
[2024-09-14 10:47] LABS: Glucose Point of Care 133 mg/dL (70-110)
[2024-09-14 11:56] VITALS: BP 117/73; PULSE 94; RESP 16; TEMP 37.1; O2SAT 97
[2024-09-14] MEDS: oseltamivir phosphate 75 mg Capsule PO (12:54)
--- NOTE | 2024-09-14 14:48 | PM.DCS ---
Discharge Providers Date of Admission: 09/13/24 09:34 Date of Discharge: September 14, 2024 Attending Provider at Admission: Willi Jackson Attending Provider at Discharge: Willi Jackson Primary Care Provider: Carole Hatfield MD Diagnoses at Discharge Discharge Diagnosis (1) Influenza A: Status: Acute (2) Hypoxia: Status: Acute (3) Sinus tachycardia: Status: Acute Reason for Visit Reason for Visit: FEVER, COUGH Brief History: Pleasant 68-year-old lady began experiencing generalized weakness, malaise, dry cough over the past week, with worsening symptoms. Also had nausea and vomiting. On presentation ER with sinus tachycardia, pulse rates up as high as 120s-130s. Fever 102.5. Creatinine mildly elevated from baseline up to 1. Maintaining blood pressures, with chronic anemia, hemoglobin 9.2 slightly better compared to prior back in July was down as low as 5.1. With noted new hypoxia in ER, new requirement of oxygen of 2 L. With underlying comorbidities including chronic kidney disease stage III, diabetes, COPD, DANA, prior CVA, vaping, other comorbidities observation was requested in the hospital. Hospital Course Hospital Course She was admitted and continued on oxygen support, started on Tamiflu, breathing treatments, antitussive, she did not show any worsening in her hypoxia and subjectively stated was improving, requesting to discharge home today. Is having some wheezing, as discussed with her, but declined to stay further in the hospital. Understands and agrees that she will come back in case of any worsening. A course of prednisone is provided to her in addition to completion of course of Tamiflu, antitussives. Additionally during hospitalization discussed with her that she will also need follow-up for incidental findings on CT on presentation which did not show PE but incidentally found left adrenal gland nodularity/mass present since 2019 with slight increase in size, as well as right upper lobe 9 mm pulmonary nodule new since 07/16/2022, with recommended follow-up chest CT in 3 months. Additionally simply noted enlarged intermediate mediastinal and hilar lymphadenopathy, possibly reactive. This can be followed up in 3 months also after treatment. Please assist her in arrangements for this follow-up. Physical Exam Const: COMMON NORMALS: patient oriented x3 and alert GENERAL APPEARANCE: cooperative ORIENTATION/CONSCIOUSNESS: Yes awake HENMT: COMMON NORMALS: oropharynx normal Neck/C-Spine: COMMON NORMALS: no JVD Cardio: COMMON NORMALS: no JVD, regular rhythm, S1 normal heart sound present, S2 normal heart sound present and No murmurs present (Cardio) RATE: tachycardic RHYTHM: regular rhythm HEART SOUNDS: S1 normal heart sound present and S2 normal heart sound present GI: COMMON NORMALS: Normal to inspection, nondistended, normoactive bowel sounds present, Soft to palpation and non-tender PALPATION: Yes Soft to palpation Extremity: COMMON NORMALS: no joint enlargement and no pedal edema Neuro: COMMON NORMALS: patient oriented x3 and moves all extremities SENSORIUM/ORIENTATION: Yes alert Skin: COMMON NORMALS: no rashes or lesions noted GENERAL SKIN EXAM: no rashes or lesions noted Discharge Data Studies Completed and Pending Completed Studies During Hospitalization Category Date Time Status CT angio chest PE protcl [id number] Stat Cat Scan 09/13/24 08:14 Completed XR chest 1V portable [id number] Stat Exams 09/13/24 06:17 Completed Pending at discharge Category Date Time Status Basic Metabolic Panel AM LABS Lab 09/15/24 04:00 Ordered Basic Metabolic Panel AM LABS Lab 09/16/24 04:00 Ordered Blood Culture Stat Lab 09/13/24 07:37 Results Complete Blood Count w/Auto AM LABS Lab 09/15/24 04:00 Ordered Complete Blood Count w/Auto AM LABS Lab 09/16/24 04:00 Ordered Radiology Impressions Chest X-Ray 09/13/24 06:17 IMPRESSION: 1. No acute cardiopulmonary abnormality identified. Chest CTA 09/13/24 08:14 IMPRESSION: 1. No pulmonary embolism. 2. No RIGHT heart strain. 3. RIGHT upper lobe 9 mm pulmonary nodule, new since 07/16/2022. Recommend follow-up chest CT in 3 months. 4. Enlarged, indeterminate mediastinal and hilar lymphadenopathy. May be reactive adenopathy. This can be followed up in 3 months also after treatment. 5. LEFT adrenal gland nodularity/mass. Present since 2019 with slight increase in size. Laboratory Results WBC 6.52 10^3/uL (3.29-11.43) 09/14/24 04:34 RBC 4.02 10^6/uL (3.85-5.65) 09/14/24 04:34 Hgb 9.40 g/dL (11.27-16.99) L 09/14/24 04:34 Hct 33.0 % (36-47) L 09/14/24 04:34 MCV 82.1 fl (85-98) L 09/14/24 04:34 MCH 23.4 pg (27-33) L 09/14/24 04:34 MCHC 28.5 g/dL (30-55) L 09/14/24 04:34 RDW 27.1 % (12.1-15.1) H 09/14/24 04:34 Plt Count 271 10^3/cmm (157-399) 09/14/24 04:34 MPV 9.3 fL (7.4-10.4) 09/14/24 04:34 Neut % (Auto) 79.1 % 09/14/24 04:34 Lymph % (Auto) 13.0 % 09/14/24 04:34 [place] % (Auto) 6.4 % 09/14/24 04:34 Eos % (Auto) 0.3 % 09/14/24 04:34 Baso % (Auto) 0.6 % 09/14/24 04:34 Neut # (Auto) 5.15 10^3/uL (1.8-7.7) 09/14/24 04:34 Lymph # (Auto) 0.9 10^3/uL (0.8-4.8) 09/14/24 04:34 [place] # (Auto) 0.4 10^3/uL (0.2-0.9) 09/14/24 04:34 Eos # (Auto) 0.0 10^3/uL (0.0-0.8) 09/14/24 04:34 Baso # (Auto) 0.0 10^3/uL (0.0-0.1) 09/14/24 04:34 Nucleated RBC % (auto) 0 % 09/14/24 04:34 Nucleated RBCs # 0.0 /100WBC 09/14/24 04:34 Sodium 138 mmol/L (136-145) 09/14/24 04:34 Potassium 3.7 mmol/L (3.5-5.1) 09/14/24 04:34 Chloride 100 mmol/L (98-107) 09/14/24 04:34 Carbon Dioxide 27 mmol/L (22-29) 09/14/24 04:34 Anion Gap 14.7 (5-19) 09/14/24 04:34 BUN 13 mg/dL (8-23) 09/14/24 04:34 Creatinine 0.9 mg/dL (0.5-0.9) 09/14/24 04:34 GFR Calculation 62.6 mL/min (90-130) L 09/14/24 04:34 Glucose 108 mg/dL (65-115) 09/14/24 04:34 POC Glucose 133 mg/dL (70-110) H 09/14/24 10:44 Calculated Osmolality 287 mOsm/kg (285-295) 09/14/24 04:34 Lactic Acid 1.9 mmol/L (0.5-2.2) 09/13/24 06:39 Calcium 9.5 mg/dL (8.5-10.5) 09/14/24 04:34 Total Bilirubin 0.3 mg/dL (0.15-1.2) 09/13/24 06:39 AST 11 U/L (0-32) 09/13/24 06:39 ALT 6 U/L (0-33) 09/13/24 06:39 Alkaline Phosphatase 81 U/L (35-105) 09/13/24 06:39 Total Protein 7.8 g/dL (6.6-8.7) 09/13/24 06:39 Albumin 4.0 g/dL (3.5-5.2) 09/13/24 06:39 Globulin 3.8 g/dL (1.3-4.6) 09/13/24 06:39 Urine Color Yellow (Yellow) 09/13/24 06:55 Urine Appearance Clear (CLEAR) 09/13/24 06:55 Urine pH 5.5 (5-7) 09/13/24 06:55 Ur Specific [place] 1.014 (1.005-1.030) 09/13/24 06:55 Urine Protein Negative (Negative) 09/13/24 06:55 Urine Glucose (UA) Negative (Normal) 09/13/24 06:55 Urine Ketones Negative (Negative) 09/13/24 06:55 Urine Blood Negative (Negative) 09/13/24 06:55 Urine Nitrate Negative (Negative) 09/13/24 06:55 Urine Bilirubin Negative (Negative) 09/13/24 06:55 Urine Urobilinogen 0.2 mg/dL (Negative) 09/13/24 06:55 Ur Leukocyte Esterase Negative (Negative) 09/13/24 06:55 Urine RBC 0-2 /hpf (0-2) 09/13/24 06:55 Urine WBC 0-5 /hpf (0-5) 09/13/24 06:55 Ur Squamous Epith Cells 0-5 /hpf (0-5) 09/13/24 06:55 Amorphous Sediment Not Reportable 09/13/24 06:55 Urine Bacteria Trace /hpf (NONE) 09/13/24 06:55 Hyaline Casts 2.87 /lpf 09/13/24 06:55 Coronavirus (PCR) Negative (Negative) 09/13/24 06:34 Influenza A (PCR) Positive (Negative) 09/13/24 06:34 Influenza Type B (PCR) Negative (Negative) 09/13/24 06:34 RSV (PCR) Negative (Negative) 09/13/24 06:34 Vitals Last Vital Signs Temp 98.7 F 09/14/24 11:56 Pulse 94 09/14/24 11:56 Resp 16 09/14/24 11:56 BP 117/73 09/14/24 11:56 Pulse Ox 97 09/14/24 11:56 O2 Del Method Nasal Cannula 09/14/24 11:56 O2 Flow Rate 2 09/14/24 09:46 Discharge Plan Discharge Patient Disposition: Home Condition: Stable Prescriptions: New dextromethorphan-guaifenesin 10-100 mg/5 mL Syrup 10 ml PO Q4H PRN (Reason: Cough) Qty: 500 0RF oseltamivir 75 mg Capsule 75 mg PO Q12H Qty: 8 0RF benzonatate 100 mg Capsule 200 mg PO TID Qty: 30 0RF prednisone 20 mg tablet 20 mg PO BID 5 Days Qty: 10 0RF Continued (DME) walker See Rx Instructions .Route .MEDSUPPLY Qty: 1 0RF Rx Instructions: As directed (DME) Diabetic Shoes See Rx Instructions .ROUTE .MEDSUPPLY Qty: 1 0RF Rx Instructions: As directed ropinirole 2 mg tablet 2 mg PO TID Qty: 90 5RF levothyroxine 25 mcg tablet 25 mcg PO DAILY Qty: 90 1RF fluticasone propionate 50 mcg/actuation spray,suspension See Rx Instructions .ROUTE .COMPLEX Qty: 48 1RF Dose Instruction: SPRAY 1 SPRAY INTO EACH NOSTRIL TWICE DAILY NEEDED FOR NASAL CONGESTION Rx Instructions: SPRAY 1 SPRAY INTO EACH NOSTRIL TWICE DAILY NEEDED FOR NASAL CONGESTION ferrous sulfate [Iron (ferrous sulfate)] 325 mg (65 mg iron) tablet 325 mg PO DAILY Qty: 30 0RF celecoxib 200 mg capsule 200 mg PO BID PRN (Reason: inflammation and pain) hydroxyzine HCl 50 mg Tablet 50 mg PO BID PRN (Reason: Anxiety) omeprazole 20 mg capsule,delayed release(DR/EC) 20 mg PO QAM propranolol 20 mg tablet 20 mg PO BID Eliquis 2.5 mg tablet 2.5 mg PO BID tolterodine 2 mg capsule,extended release 24hr 2 mg PO QAM atorvastatin 10 mg tablet 10 mg PO BEDTIME gabapentin 400 mg capsule 400 mg PO TID zonisamide 100 mg capsule 500 mg PO QAM metformin 1,000 mg tablet 1,000 mg PO BID triamterene-hydrochlorothiazid 37.5-25 mg tablet 1 tab PO QAM albuterol sulfate 90 mcg/actuation HFA aerosol inhaler 2 puff INHALATION Q6H PRN (Reason: Shortness Of Breath) Januvia 100 mg tablet 100 mg PO QAM venlafaxine [Effexor XR] 37.5 mg capsule,extended release 24hr See Rx Instructions .ROUTE .COMPLEX Rx Instructions: Take one capsule every morning with 150 mg capsule, total dose 187.5 mg venlafaxine 150 mg capsule,extended release 24hr See Rx Instructions .ROUTE .COMPLEX Rx Instructions: Take one capsule every morning with 37.5 mg capsule, total dose 187.5 mg Discharge Orders: Discharge Order (Routine); Ordered 09/14/24 Ordered By: Willi Jackson Other Ambulatory Orders: DME: Oxygen (Order) Location: None Selected Ordered By: Willi Jackson Referrals: Carole Hatfield MD [Primary Care Provider] - 4-7 days (We have notified your physician's clinic of the need for a follow-up appointment to be scheduled. If you have not heard from them within the next 2 business days, please call them directly. ) Discharge Diet: Cardiac and Diabetic Discharge Activity: Oxygen as instructed Patient Instructions: Benzonatate (By mouth), Prednisone (By mouth), Oseltamivir (By mouth), Dextromethorphan/Guaifenesin/Phenylephrine (By mouth), Influenza (GEN), COPD (Chronic Obstructive Pulmonary Disease) (GEN), Opioid Safety Activity Restrictions/Additional Instructions: Follow up with your primary provider to reassess recovery from influenza infection and reassessment of COPD. Conitnue to use nebulizer 4-6 times a day until you are further improving. Discharge Attestations Time Spent in Discharge Care*: greater than 30 min Quality Metrics Clinical Quality Measures [ No reported AMI, CVA or VTE this stay] Coding Level of Care Code 99019 Total time (in minutes) for Discharge: 50 Diagnoses Influenza A J10.1 Hypoxia R09.02 Sinus tachycardia R00.0
== END 2024-09-14 16:17 | disposition home or self-care (01) ==
LOC: ER 07:44 → MEDSURG 09:35
PROVIDERS: Admitting Provider Internal Medicine; Emergency Provider Family Medicine; PCP Family Medicine; Visit Provider Internal Medicine
DX: J10.1 Influenza due to other identified influenza virus with other respiratory manifestations (principal); R09.02 Hypoxemia; R00.0 Tachycardia, unspecified; R11.2 Nausea with vomiting, unspecified; Z11.52 Encounter for screening for COVID-19; D64.9 Anemia, unspecified; J44.9 Chronic obstructive pulmonary disease, unspecified; G47.33 Obstructive sleep apnea (adult) (pediatric); Z86.73 Personal history of transient ischemic attack (TIA), and cerebral infarction without residual deficits; Z79.899 Other long term (current) drug therapy; Z79.890 Hormone replacement therapy; Z79.01 Long term (current) use of anticoagulants; Z88.0 Allergy status to penicillin; Z88.2 Allergy status to sulfonamides; Z88.5 Allergy status to narcotic agent; E03.9 Hypothyroidism, unspecified; E11.22 Type 2 diabetes mellitus with diabetic chronic kidney disease; N18.30 Chronic kidney disease, stage 3 unspecified; E66.01 Morbid (severe) obesity due to excess calories; Z68.39 Body mass index [BMI] 39.0-39.9, adult; Z91.81 History of falling; E78.5 Hyperlipidemia, unspecified; G25.81 Restless legs syndrome; I12.9 Hypertensive chronic kidney disease with stage 1 through stage 4 chronic kidney disease, or unspecified chronic kidney disease; K21.9 Gastro-esophageal reflux disease without esophagitis; G47.00 Insomnia, unspecified; F31.81 Bipolar II disorder; E11.42 Type 2 diabetes mellitus with diabetic polyneuropathy; F17.290 Nicotine dependence, other tobacco product, uncomplicated; F17.210 Nicotine dependence, cigarettes, uncomplicated; N17.9 Acute kidney failure, unspecified; E27.8 Other specified disorders of adrenal gland; R91.1 Solitary pulmonary nodule
CPT/HCPCS: 36415; 36416; 71045; 71275; 80048; 80053; 81001; 82962; 83605; 85025; 87040; 87077; 87150; 87186; 87205; 87637; 93005; 94640; 94760; 96372; 99285; G0378; J1650; J7040

== ENCOUNTER 2024-09-16 19:47 | Emergency (ER) | payer MEDICARE, MEDICAID, SELFPAY ==
[2023-10-12 11:43] VITALS: BP 149/87; BMI 40.1
[2024-09-16 20:00] VITALS: BP 182/107; PULSE 131; RESP 22; TEMP 37.2; O2SAT 91; BMI 36.5
[2024-09-16 22:12] LABS: Basophils % 0.3 %; Eosinophils % 0.2 %; Hematocrit 34.4 % (36-47); Lymphocytes # 0.7 10^3/uL (0.8-4.8); Lymphocytes % 7.2 %; Mean Corpuscular HGB Conc 29.7 g/dL (30-55); Mean Corpuscular Hemoglobin 23.3 pg (27-33); Mean Corpuscular Volume 78.7 fl (85-98); Mean Platelet Volume 8.8 fL (7.4-10.4); Monocytes # 0.4 10^3/uL (0.2-0.9); Neutrophils # 8.63 10^3/uL (1.8-7.7); Neutrophils % 88.1 %; Nucleated Red Blood Cells % 0 %; Platelet Count 297 10^3/cmm (157-399); Red Blood Count 4.37 10^6/uL (3.85-5.65); Red Cell Distribution Width 26.5 % (12.1-15.1); White Blood Count 9.79 10^3/uL (3.29-11.43)
[2024-09-16 22:33] LABS: Alanine Aminotransferase 11 U/L (0-33); Alkaline Phosphatase 76 U/L (35-105); Anion Gap 18.2 (5-19); Aspartate Amino Transferase 25 U/L (0-32); Blood Urea Nitrogen 10 mg/dL (8-23); Calcium 10.1 mg/dL (8.5-10.5); Carbon Dioxide 23 mmol/L (22-29); Chloride 103 mmol/L (98-107); Creatinine Clr Calc Pharmacy 79.4839; Glomerular Filtration Rate 62.6 mL/min (90-130); Glucose 155 mg/dL (65-115); Osmolality Calculated 294 mOsm/kg (285-295); Potassium 3.2 mmol/L (3.5-5.1); Sodium 141 mmol/L (136-145); Total Bilirubin 0.3 mg/dL (0.15-1.2)
--- NOTE | 2024-09-17 00:01 | XRR_ITS ---
PROCEDURE INFORMATION: Exam: XR Chest Exam date and time: 09/17/2024 12:19 AM Age: 68 years old Clinical indication: Cough and shortness of breath; Cough with SOB. Flu a positive. ; Additional info: Productive cough, recent hospitalization for flu a TECHNIQUE: Imaging protocol: Radiologic exam of the chest. Views: 2 views. COMPARISON: CT angio chest PE protcl [id number] 09/13/2024 8:41 AM FINDINGS: Lungs: Unremarkable. No consolidation. Pleural spaces: Unremarkable. No pleural effusion. No pneumothorax. Heart/Mediastinum: Unremarkable. No cardiomegaly. Bones/joints: Unremarkable. XR/XR chest 2V* [id number] IMPRESSION: No acute findings.
--- NOTE | 2024-09-17 01:17 | W.ED.GENADLT ---
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 SPRAY INTO EACH NOSTRIL TWICE DAILY NEEDED FOR NASAL CONGESTION ferrous sulfate [Iron (ferrous sulfate)] 325 mg (65 mg iron) tablet 325 mg PO DAILY Qty: 30 0RF celecoxib 200 mg capsule 200 mg PO BID PRN (Reason: inflammation and pain) hydroxyzine HCl 50 mg Tablet 50 mg PO BID PRN (Reason: Anxiety) omeprazole 20 mg capsule,delayed release(DR/EC) 20 mg PO QAM propranolol 20 mg tablet 20 mg PO BID Eliquis 2.5 mg tablet 2.5 mg PO BID tolterodine 2 mg capsule,extended release 24hr 2 mg PO QAM atorvastatin 10 mg tablet 10 mg PO BEDTIME gabapentin 400 mg capsule 400 mg PO TID zonisamide 100 mg capsule 500 mg PO QAM metformin 1,000 mg tablet 1,000 mg PO BID triamterene-hydrochlorothiazid 37.5-25 mg tablet 1 tab PO QAM Januvia 100 mg tablet 100 mg PO QAM venlafaxine [Effexor XR] 37.5 mg capsule,extended release 24hr See Rx Instructions .ROUTE .COMPLEX Rx Instructions: Take one capsule every morning with 150 mg capsule, total dose 187.5 mg venlafaxine 150 mg capsule,extended release 24hr See Rx Instructions .ROUTE .COMPLEX Rx Instructions: Take one capsule every morning with 37.5 mg capsule, total dose 187.5 mg dextromethorphan-guaifenesin 10-100 mg/5 mL Syrup 10 ml PO Q4H PRN (Reason: Cough) Qty: 500 0RF benzonatate 100 mg Capsule 200 mg PO TID Qty: 30 0RF Discharge Orders: Discharge ED (Routine); Ordered 09/17/24 Ordered By: Adalid Michel Referrals: Carole Hatfield MD [Primary Care Provider] - 1-3 days Patient Instructions: Influenza (ED), Acute Bronchitis (ED), Opioid Safety, Pain Management Activity Restrictions/Additional Instructions: Finish out the medications you were prescribed when he left the hospital. Continue to use your inhaler every 4 hours while awake for the next 48 hours whether you feel short of breath or not. You may use it as needed following that. Call your doctor for follow-up appointment later today. Print Language: Mexican Coding Level of Care Code ED Recycling Coordinator for Surinder Álvarez
[2024-09-17] MEDS: ondansetron 2 mg/ML SDV 2 mL 4 MG IVP ×2 (01:40→03:15)
[2024-09-17] MEDS: sodium chloride 0.9% 1,000 ML 999 ML IV (01:40)
[2024-09-17] MEDS: potassium chloride oral liq 20 mEq/15 mL UDC 40 MEQ PO (01:40)
[2024-09-17 02:06] VITALS: BP 133/78; PULSE 115; RESP 20; O2SAT 92
[2024-09-17 03:07] VITALS: PULSE 120; RESP 17; O2SAT 90
[2024-09-17] MEDS: albuterol 8 gm MDI 2 PUFF INHALATION (03:07)
[2024-09-17 03:33] VITALS: BP 133/78; PULSE 122; RESP 18; O2SAT 90
== END 2024-09-17 03:34 | disposition home or self-care (01) ==
PROVIDERS: Emergency Provider Emergency Medicine; PCP Family Medicine
DX: R00.0 Tachycardia, unspecified (principal); R06.00 Dyspnea, unspecified; R05.9 Cough, unspecified; J10.1 Influenza due to other identified influenza virus with other respiratory manifestations; Z79.01 Long term (current) use of anticoagulants; Z79.84 Long term (current) use of oral hypoglycemic drugs; F17.210 Nicotine dependence, cigarettes, uncomplicated; F17.290 Nicotine dependence, other tobacco product, uncomplicated; E11.42 Type 2 diabetes mellitus with diabetic polyneuropathy; E78.5 Hyperlipidemia, unspecified; J44.9 Chronic obstructive pulmonary disease, unspecified; I10 Essential (primary) hypertension; Z86.73 Personal history of transient ischemic attack (TIA), and cerebral infarction without residual deficits
CPT/HCPCS: 12345; 36415; 71046; 80053; 85025; 94640; 96361; 96374; 96376; 99284; J2405; J3535; J7030

== ENCOUNTER 2024-09-17 04:43 | Emergency (ER) | payer MEDICARE, MEDICAID, SELFPAY ==
[2023-10-12 11:43] VITALS: BP 149/87; BMI 40.1
[2024-09-17 04:51] VITALS: BP 127/72; PULSE 118; RESP 20; TEMP 37.2; O2SAT 92; BMI 36.5
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
[2024-09-17 08:33] VITALS: PULSE 110; O2SAT 96
== END 2024-09-17 08:37 | disposition home or self-care (01) ==
PROVIDERS: Emergency Provider Family Medicine; PCP Family Medicine
DX: J10.1 Influenza due to other identified influenza virus with other respiratory manifestations (principal); F32.A Depression, unspecified; Z79.01 Long term (current) use of anticoagulants; Z79.84 Long term (current) use of oral hypoglycemic drugs; F17.210 Nicotine dependence, cigarettes, uncomplicated; F17.290 Nicotine dependence, other tobacco product, uncomplicated; Z86.73 Personal history of transient ischemic attack (TIA), and cerebral infarction without residual deficits; E11.42 Type 2 diabetes mellitus with diabetic polyneuropathy; E11.22 Type 2 diabetes mellitus with diabetic chronic kidney disease; I12.9 Hypertensive chronic kidney disease with stage 1 through stage 4 chronic kidney disease, or unspecified chronic kidney disease; N18.30 Chronic kidney disease, stage 3 unspecified
CPT/HCPCS: 99281

== ENCOUNTER → 2024-10-26 15:06 | Outpatient (BNVA) | payer OTHER, SELFPAY ==
[2023-10-12 11:43] VITALS: BP 149/87; BMI 40.1
== END ==
PROVIDERS: PCP Family Medicine; Visit Provider Nurse Practitioner Psychiatric/Mental Health
DX: Z79.899 Other long term (current) drug therapy (principal); F31.81 Bipolar II disorder; F60.3 Borderline personality disorder
CPT/HCPCS: 80053; 80061

== ENCOUNTER → 2024-11-01 16:25 | Outpatient (BNVA) | payer MEDICAID, SELFPAY ==
[2024-10-30 09:59] VITALS: BP 130/87; BMI 35.1
== END ==
PROVIDERS: PCP Family Medicine; Visit Provider Family Medicine
DX: I15.2 Hypertension secondary to endocrine disorders (principal); D50.0 Iron deficiency anemia secondary to blood loss (chronic)
CPT/HCPCS: 80048; 83540; 85025

== ENCOUNTER → 2024-11-09 12:51 | Outpatient (BNVA) | payer MEDICAID, SELFPAY ==
[2024-10-30 09:59] VITALS: BP 130/87; BMI 35.1
== END ==
PROVIDERS: PCP Family Medicine; Visit Provider Family Medicine
DX: D50.0 Iron deficiency anemia secondary to blood loss (chronic) (principal); I15.2 Hypertension secondary to endocrine disorders
CPT/HCPCS: 80048; 83540; 85025

== ENCOUNTER 2024-11-19 01:24 | Emergency (ER) | payer MEDICARE, MEDICAID, SELFPAY ==
[2024-10-30 09:59] VITALS: BP 130/87; BMI 35.1
[2024-11-19 01:25] VITALS: BP 187/112; PULSE 114; RESP 20; TEMP 37; O2SAT 94; BMI 35.6
--- NOTE | 2024-11-19 01:34 | XRR_ITS ---
PROCEDURE INFORMATION: Exam: XR Chest Exam date and time: 11/19/2024 1:52 AM Age: 68 years old Clinical indication: Shortness of breath; Chest pressure; C/O chest pain with SOB. TECHNIQUE: Imaging protocol: Radiologic exam of the chest. Views: 1 view. COMPARISON: CR XR chest 2V* [id number] 09/17/2024 12:19 AM FINDINGS: Lungs: New mild bibasilar atelectasis/infiltrate versus edema. Pleural spaces: Unremarkable. No pleural effusion. No pneumothorax. Heart/Mediastinum: Unremarkable. No cardiomegaly. Bones/joints: Unremarkable. XR/XR chest 1V portable [id number] IMPRESSION: New mild bibasilar atelectasis/infiltrate versus edema.
[2024-11-19 01:43] LABS: Basophils # 0.1 10^3/uL (0.0-0.1); Basophils % 0.8 %; Eosinophils # 0.3 10^3/uL (0.0-0.8); Eosinophils % 2.6 %; Hematocrit 29.3 % (36-47); Lymphocytes # 2.3 10^3/uL (0.8-4.8); Lymphocytes % 22.8 %; Mean Corpuscular Hemoglobin 23.5 pg (27-33); Mean Corpuscular Volume 80.9 fl (85-98); Mean Platelet Volume 9.6 fL (7.4-10.4); Monocytes # 0.5 10^3/uL (0.2-0.9); Monocytes % 4.7 %; Neutrophils # 7.01 10^3/uL (1.8-7.7); Neutrophils % 68.7 %; Nucleated Red Blood Cells % 0 %; Platelet Count 411 10^3/cmm (157-399); Red Blood Count 3.62 10^6/uL (3.85-5.65); Red Cell Distribution Width 18.1 % (12.1-15.1); White Blood Count 10.19 10^3/uL (3.29-11.43)
[2024-11-19 01:46] LABS: ABG PCO2 50.1 mmHg (35-45); ABG PH Result 7.38 (7.35-7.45); Arterial Blood Gas Hematocrit 26.2 % (37-47); Base Excess ABG 3.9 mmol/L (-2.0-2.0); Blood Gas Allen Test Pos; Blood Gas Operator Identificat ED; Blood Gas Sample Site Radial, left; Blood Gas Sample Type Arterial; Carboxyhemoglobin 4.3 %THgb (0.4-20.1); HCO3 ABG 29.6 mmol/L (22-26); HGB O2 Sat 87.7 % (95-100); Methemoglobin 1.1 % (0.4-1.5); Oxygen Device NC; PO2 FiO2 Ratio Arterial Blood 235; Total Hemoglobin 8.6 g/dL (12-16)
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
[2024-11-19 02:02] LABS: Troponin(5th) Baseline 21 ng/L (0-10)
[2024-11-19 02:03] LABS: Lactic Sepsis W/Reflex 1.1 mmol/L (0.5-2.2)
[2024-11-19 02:14] LABS: Alanine Aminotransferase 20 U/L (0-33); Albumin Level 3.8 g/dL (3.5-5.2); Alkaline Phosphatase 105 U/L (35-105); Blood Urea Nitrogen 9 mg/dL (8-23); Calcium 8.9 mg/dL (8.5-10.5); Carbon Dioxide 26 mmol/L (22-29); Chloride 105 mmol/L (98-107); Creatinine Clr Calc Pharmacy 88.2308; Globulin 2.8 g/dL (1.3-4.6); Glomerular Filtration Rate 71.8 mL/min (90-130); Glucose 143 mg/dL (65-115); NT Pro B Type Natriuretic Pept 3468 pg/mL (0-125); Osmolality Calculated 297 mOsm/kg (285-295); Sodium 143 mmol/L (136-145); Total Bilirubin 0.5 mg/dL (0.15-1.2); Total Protein 6.6 g/dL (6.6-8.7)
[2024-11-19 02:21] LABS: Anion Gap 15.7 (5-19); Aspartate Amino Transferase 30 U/L (0-32); Potassium 3.7 mmol/L (3.5-5.1)
[2024-11-19] MEDS: FUROsemide 10 mg/mL SDV 10mL 80 MG IVP (02:21)
[2024-11-19 02:22] VITALS: BP 164/84; PULSE 103; RESP 24; O2SAT 92
[2024-11-19 02:25] LABS: Influenza A NEGATIVE (Negative); Influenza B NEGATIVE (Negative); Respiratory Syncytial Virus Ce NEGATIVE (Negative); SARS-CoV-2 PCR NEGATIVE (Negative)
[2024-11-19 02:36] LABS: D Dimer 1.66 ug/mLFEU (0-0.59)
--- NOTE | 2024-11-19 02:47 | CTR_ITS ---
PROCEDURE INFORMATION: Exam: CTA Chest With Contrast Exam date and time: 11/19/2024 3:21 AM Age: 68 years old Clinical indication: Pain and abnormal findings; Abnormal diagnostic tests; Elevated d-dimer; Shortness of breath; Chest pressure; Chest pain with SOB and tachycardia. Elevated dimer. ; Additional info: Chest pain, tachycardia, elevated d dimer TECHNIQUE: Imaging protocol: Computed tomographic angiography of the chest with contrast. Exam focused on the arteries. 3D rendering (Not supervised by radiologist): MIP and/or 3D reconstructed images were created by the technologist. Radiation optimization: All CT scans at this facility use at least one of these dose optimization techniques: automated exposure control; mA and/or kV adjustment per patient size (includes targeted exams where dose is matched to clinical indication); or iterative reconstruction. Contrast material: OMNI 350; Contrast volume: 85 ml; Contrast route: INTRAVENOUS (IV); COMPARISON: 1. CT angio chest PE protcl [id number] 09/13/2024 8:[address] chest abdpel w/*[id number] 07/16/2022 11:17 PM RADIATION DOSE METRICS: Total DLP (mGy-cm): 542.98 FINDINGS: Pulmonary arteries: No evidence of pulmonary embolism. Aorta: Unremarkable. No aortic aneurysm. No aortic dissection. Lungs: Compressive atelectasis of the lungs. Small peripheral granuloma in the right upper lobe. No consolidation. Stable 9 mm central right upper lobe pulmonary nodule on series . Pleural spaces: Small bilateral pleural effusions are present. Heart: Mild cardiomegaly. Coronary arteries: Coronary artery calcifications are present. Lymph nodes: Increased nonspecific mediastinal and left hilar lymphadenopathy. Largest node in the precarinal region measuring 1.8 x 2.5 cm. Bones/joints: Unremarkable. No acute fracture. Soft tissues: Unremarkable. CT/CT angio chest PE protcl [id number] IMPRESSION: 1. No evidence of pulmonary embolism. 2. Small bilateral pleural effusions with compressive atelectasis. 3. Stable 9 mm central right upper lobe pulmonary nodule on series . Continued short interval follow-up CT chest is recommended. 4. Increased nonspecific mediastinal and left hilar lymphadenopathy. Largest node in the precarinal region measuring 1.8 x 2.5 cm. 5. Mild cardiomegaly.
[2024-11-19] MEDS: iohexol 350 mg/mL 500 mL Btl (per mL) IV (03:32)
--- NOTE | 2024-11-19 03:34 | ECG_ITS ---
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 Measurements Intervals [place] Rate: 107 P: 138 OR: 160 QRS: 119 QRSD: 92 T: 124 QT: 337 QTc: 451 Interpretive Statements SINUS TACHYCARDIA ARM LEADS REVERSED [INVERTED P AND QRS IN I] ABNORMAL RHYTHM ECG Compared to ECG 09/13/2024 06:25:37 No significant changes Electronically Signed On 11-19-2024 21:39:57 CDT by Samuel Lawton M.D. [email or web address]
[2024-11-19 04:09] LABS: Troponin 5 2HR 29.42 ng/L (0-10); Troponin 5 2HR Delta 8.42 ABS# (0-10)
[2024-11-19 04:13] VITALS: BP 144/104; PULSE 110; RESP 13; O2SAT 94
[2024-11-19 05:19] VITALS: BP 143/89; PULSE 100; RESP 16; O2SAT 96
== END 2024-11-19 05:05 | disposition home or self-care (01) ==
PROVIDERS: Emergency Provider Emergency Medicine; PCP Family Medicine
DX: D50.9 Iron deficiency anemia, unspecified (principal); J81.1 Chronic pulmonary edema; Z11.52 Encounter for screening for COVID-19; F17.290 Nicotine dependence, other tobacco product, uncomplicated; J44.9 Chronic obstructive pulmonary disease, unspecified; Z86.73 Personal history of transient ischemic attack (TIA), and cerebral infarction without residual deficits; E11.22 Type 2 diabetes mellitus with diabetic chronic kidney disease; I12.9 Hypertensive chronic kidney disease with stage 1 through stage 4 chronic kidney disease, or unspecified chronic kidney disease; N18.30 Chronic kidney disease, stage 3 unspecified; E78.5 Hyperlipidemia, unspecified
CPT/HCPCS: 36600; 71045; 71275; 80053; 82805; 83605; 83880; 84484; 85025; 85378; 87637; 93005; 96374; 99285; J1938

== ENCOUNTER 2024-12-03 05:58 | Inpatient (IN) | payer MEDICARE, MEDICAID, SELFPAY ==
[2024-10-30 09:59] VITALS: BP 130/87; BMI 35.1
[2024-12-03] VITALS (94 sets, daily range): BP systolic 70–201; BP diastolic 36–122; PULSE 60–141; RESP 8–98; TEMP 35.8–36.5; O2SAT 84–100; BMI 36.5; BMI 38.2
--- NOTE | 2024-12-03 06:02 | ECG_ITS ---
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
--- NOTE | 2024-12-03 06:10 | XRR_ITS ---
PROCEDURE INFORMATION: Exam: XR Chest Exam date and time: 12/03/2024 6:04 AM Age: 69 years old Clinical indication: EMS arrival for resp distress. History of copd. ; Additional info: Cough/dyspnea TECHNIQUE: Imaging protocol: Radiologic exam of the chest. Views: 1 view. COMPARISON: CT angio chest PE prot [id number] 11/19/2024 3:21 AM FINDINGS: Lungs: Diffuse increase in interstitial lung markings predominantly of the lower lung zones. No focal consolidation. Cardiomegaly. Pleural spaces: Unremarkable. No pleural effusion. No pneumothorax. Heart/Mediastinum: See Lungs finding. Bones/joints: Degenerative change of the visualized osseous structures. XR/XR chest 1V portable [id number] IMPRESSION: Diffuse increase in interstitial lung markings predominantly of the lower lung zones from prior comparison, this is concerning for evolving CHF/pulmonary edema. Difficult to exclude superimposed infection. Correlate clinically.
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
[2024-12-03 06:19] LABS: ABG PCO2 93.1 mmHg (35-45); ABG PH Result 7.08 (7.35-7.45); Arterial Blood Gas Hematocrit 31.1 % (37-47); Base Excess ABG -3.6 mmol/L (-2.0-2.0); Blood Gas Allen Test Pos; Blood Gas Sample Site Radial, left; Blood Gas Sample Type Arterial; Carboxyhemoglobin 1.5 %THgb (0.4-20.1); HCO3 ABG 27.7 mmol/L (22-26); HGB O2 Sat 95.9 % (95-100); Ionized Calcium Level - ABG 1.3 mmol/L (1.1-1.4); Methemoglobin 1.1 % (0.4-1.5); Oxygen Device NRB; Oxygen Saturation ABG 98.5; Potassium Level - ABG 3.6 mmol/L (3.5-5.0); Total Hemoglobin 10.1 g/dL (12-16)
[2024-12-03] MEDS: methylPREDNISolone sod succ 125 mg/2 mL INJ IVP (06:20)
--- NOTE | 2024-12-03 06:30 | XRR_ITS ---
PROCEDURE INFORMATION: Exam: XR Chest Exam date and time: 12/03/2024 6:30 AM Clinical indication: Device placement; Ett placement (vent status); Check S/P et placement; Additional info: Intubation TECHNIQUE: Imaging protocol: Radiologic exam of the chest. Views: 1 view. COMPARISON: No relevant prior studies available. FINDINGS: Tubes, catheters and devices: Patient is intubated, endotracheal tube projects 2.6 cm from latrell. Enteric tube tip is excluded from field of view. Lungs: Interval improvement in aeration of the lung bases. Persistent Ya B-lines. Pleural spaces: Unremarkable. No pleural effusion. No pneumothorax. Heart/Mediastinum: Unremarkable. No cardiomegaly. Bones/joints: Unremarkable. XR/XR chest 1V portable [id number] IMPRESSION: 1. Medical devices as above. 2. CHF. Mild improvement in aeration of the lung bases.
[2024-12-03] MEDS: propofol 1,000 MG/100 ML INJ 22.86 MG IV ×2 (06:31→13:55)
--- NOTE | 2024-12-03 06:35 | ECG_ITS ---
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
[2024-12-03] MEDS: FUROsemide 10 mg/mL SDV 4mL 40 MG IVP (06:45)
[2024-12-03 06:53] LABS: Basophils # 0.1 10^3/uL (0.0-0.1); Basophils % 0.8 %; Eosinophils # 0.3 10^3/uL (0.0-0.8); Eosinophils % 1.8 %; Hematocrit 34.9 % (36-47); Lymphocytes # 4.2 10^3/uL (0.8-4.8); Lymphocytes % 23.1 %; Mean Corpuscular HGB Conc 27.5 g/dL (30-55); Mean Corpuscular Hemoglobin 22.5 pg (27-33); Mean Corpuscular Volume 81.9 fl (85-98); Mean Platelet Volume 9.3 fL (7.4-10.4); Monocytes # 0.7 10^3/uL (0.2-0.9); Monocytes % 3.6 %; Neutrophils # 12.71 10^3/uL (1.8-7.7); Neutrophils % 69.9 %; Nucleated Red Blood Cells % 0 %; Platelet Count 522 10^3/cmm (157-399); Red Blood Count 4.26 10^6/uL (3.85-5.65); White Blood Count 18.19 10^3/uL (3.29-11.43)
[2024-12-03] MEDS: levofloxacin-dextrose 5 % 750 MG/150 ML PREMIX 100 MG IV (06:54)
[2024-12-03] MEDS: etomidate 2 mg/mL INJ SDV 10 mL 20 MG IVP (07:11)
--- NOTE | 2024-12-03 07:11 | PC.NURSE ---
Pt was given 20 etomidate @ 0632, 10 Clement at 0632, and 100 bolus of prop at 0634 during intubation. Vent tube is 22 at the teeth.
[2024-12-03 07:13] LABS: Lactic Sepsis W/Reflex 1.9 mmol/L (0.5-2.2)
[2024-12-03] MEDS: aspirin 81 mg Chew Tablet 324 MG PO (07:13)
[2024-12-03 07:14] LABS: Troponin(5th) Baseline 19 ng/L (0-10)
[2024-12-03 07:20] LABS: Bilirubin Urine Negative (Negative); Blood Urine Negative (Negative); Glucose Urine UA Negative (Normal); Ketones Urine Negative (Negative); Leukocyte Esterase Urine Negative (Negative); Nitrate Urine Negative (Negative); Protein Urine 3+ (Negative); Specific Gravity, Urine 1.008 (1.005-1.030); Urine Appearance Clear (CLEAR); Urine Color Yellow (Yellow); Urobilinogen Urine 0.2 mg/dL (Negative); pH Urine 5.5 (5-7)
[2024-12-03 07:22] LABS: Add Urine Microscopic? YES; Bacteria Urine None Seen /hpf; RBC Urine 0-2 /hpf (0-2); Squamous Epithelial Cell Urine 0-5 /hpf (0-5); WBC Urine 0-5 /hpf (0-5)
[2024-12-03 07:38] LABS: UA Slide Review UA Slide Review Perf
[2024-12-03 07:44] LABS: Alanine Aminotransferase 27 U/L (0-33); Alkaline Phosphatase 112 U/L (35-105); Anion Gap 19.6 (5-19); Aspartate Amino Transferase 57 U/L (0-32); Blood Urea Nitrogen 11 mg/dL (8-23); Calcium 9.2 mg/dL (8.5-10.5); Carbon Dioxide 22 mmol/L (22-29); Chloride 103 mmol/L (98-107); Creatine Phosphokinase 39 U/L (26-192); Globulin 3.6 g/dL (1.3-4.6); Glomerular Filtration Rate 71.5 mL/min (90-130); Glucose 293 mg/dL (65-115); Magnesium 2.1 mg/dL (1.7-2.3); Osmolality Calculated 302 mOsm/kg (285-295); Potassium 3.6 mmol/L (3.5-5.1); Sodium 141 mmol/L (136-145); Total Bilirubin 0.5 mg/dL (0.15-1.2); Total Protein 7.6 g/dL (6.6-8.7)
[2024-12-03 07:45] LABS: NT Pro B Type Natriuretic Pept 2796 pg/mL (0-125)
[2024-12-03] MEDS: ipratropium-albuterol 3 mL Neb INHALATION ×3 (07:48→19:57)
[2024-12-03 07:59] LABS: ABG PH Result 7.22 (7.35-7.45); Alveolar-Arterial Oxygen Gradi 20.9 mmHg (5-10); Arterial Blood Gas Hematocrit 29.8 % (37-47); Base Excess ABG 0.9 mmol/L (-2.0-2.0); Blood Gas Allen Test Pos; Blood Gas Operator Identificat GD; Blood Gas Sample Site Radial, right; Blood Gas Sample Type Arterial; Blood Gas Tidal Volume 0.45; Carboxyhemoglobin 1.7 %THgb (0.4-20.1); HCO3 ABG 29.8 mmol/L (22-26); HGB O2 Sat 96.5 % (95-100); Ionized Calcium Level - ABG 1.2 mmol/L (1.1-1.4); Methemoglobin 1.4 % (0.4-1.5); Oxygen Device VENT; Oxygen Saturation ABG > 99.1; PO2 FiO2 Ratio Arterial Blood 296; Potassium Level - ABG 3.3 mmol/L (3.5-5.0); Total Hemoglobin 9.7 g/dL (12-16)
--- NOTE | 2024-12-03 08:31 | ECG_ITS ---
[facility]: 2024-[facility]-03 Pat Name: Brandon Camacho Department: Room: [facility] Gender: Female [employer] Cook: : 1955 Requested By: Rio Bergeron Order Number: [id number] Reading MD: HAMIDA FRASER Measurements Intervals [place] Rate: 108 P: 76 ID: [id number] QRS: 86 QRSD: 96 T: 83 QT: 376 QTc: 506 Interpretive Statements SINUS TACHYCARDIA WITH OCCASIONAL SUPRAVENTRICULAR PREMATURE COMPLEXES ABNORMAL RHYTHM ECG Compared to ECG 12/03/2024 06:35:55 T-wave abnormality no longer present Electronically Signed On 12-03-2024 21:00:56 CDT by HAMIDA FRASER [email or web address]
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
[2024-12-03 08:43] LABS: Influenza A NEGATIVE (Negative); Influenza B NEGATIVE (Negative); Respiratory Syncytial Virus Ce NEGATIVE (Negative); SARS-CoV-2 PCR NEGATIVE (Negative)
--- NOTE | 2024-12-03 08:55 | PC.NURSE ---
PT BLOOD PRESSURE DROPPED TO 71/[address] HEMPHILL NOTIFIED. ORDERS TO DROP PROPOFOL TO 40MCG/KG/MIN TO SEE IF PT PRESSURE IS BETTER.
[2024-12-03] MEDS: ketamine 100 mg/mL Inj 5 mL 200 MG IVP (09:19)
[2024-12-03] MEDS: propofol 10 mg/mL SDV 20 mL 50 MG IVP ×2 (09:25→09:40)
--- NOTE | 2024-12-03 09:25 | PC.NURSE ---
50 MCG OF PROPOFOL ADMINISTERED IVP BY DR. HEMPHILL.
--- NOTE | 2024-12-03 09:30 | XRR_ITS ---
PROCEDURE INFORMATION: Exam: XR Chest Exam date and time: 12/03/2024 9:39 AM Age: 69 years old Clinical indication: Device placement; Other: Central line TECHNIQUE: Imaging protocol: Radiologic exam of the chest. Views: 1 view. COMPARISON: CR (CHEST, ) 12/03/2024 6:30 AM FINDINGS: Tubes, catheters and devices: Right IJ catheter terminates near the atriocaval junction probably within the right atrium. Enteric tube terminates in the stomach. Endotracheal tube terminates above the latrell. Lungs: Mild vascular and interstitial prominence stable. Pleural spaces: Unremarkable. No pleural effusion. No pneumothorax. Heart/Mediastinum: Unremarkable. No cardiomegaly. Bones/joints: Unremarkable. XR/XR chest 1V portable [id number] IMPRESSION: Right IJ catheter terminates near the atriocaval junction.
--- NOTE | 2024-12-03 09:40 | PC.NURSE ---
50 MCG OF PROPOFOL GIVEN IVP BY DR. HEMPHILL.
--- NOTE | 2024-12-03 09:43 | ECG_ITS ---
[facility]: [facility] Pat Name: Brandon Camacho Department: Room: [facility] Gender: Female Coupon Clerk: : 1955 Requested By: Rio Bergeron Order Number: [id number] Reading MD: HAMIDA FRASER Measurements Intervals [place] Rate: 96 P: 66 VA: 136 QRS: 83 QRSD: 102 T: 90 QT: 400 QTc: 508 Interpretive Statements SINUS RHYTHM Compared to ECG 12/03/2024 08:31:53 Sinus tachycardia no longer present Electronically Signed On 12-03-2024 21:00:47 CDT by HAMIDA FRASER [email or web address] [id number]
[2024-12-03] MEDS: propofol 1,000 MG/100 ML INJ 32.66 MG IV ×4 (10:10→22:35)
--- NOTE | 2024-12-03 10:15 | PC.NURSE ---
50MG PROPOFOL GIVEN AT 0925 AND AND ANOTHER 50MG GIVEN AT [address] HEMPHILL. A TOTAL OF 10ML, OR 100MG, OF PROPOFOL PUSHED BY DR. HEMPHILL. PROPOFOL WAS GIVEN FROM RSI BOX THAT WAS USED BY [facility]. A TOTAL OF 1.4ML, OR 14MG PROPOFOL REMAINING IN THE VIAL. THIS AMOUNT WAS WASTED WITH NATA FUENTES.
--- NOTE | 2024-12-03 10:15 | PC.NURSE ---
CENTRAL LINE PLACED BY DR. HEMPHILL PRIOR TO TRANSFER TO ICU.
[2024-12-03] MEDS: linezolid premix 600 MG/300 ML PREMIX 300 MG IV ×2 (10:17→21:59)
[2024-12-03] MEDS: pantoprazole 40 mg SDV IVP (10:17)
--- NOTE | 2024-12-03 10:25 | USCV_ITS ---
Brandon Camacho Age: 69 Gender: F : 1955 Exam Date: 12/03/2024 16:40 Ordering Phys: Willi Jackson MD Technologist: ALBERT [place] [facility] [place]: CHF BP: 131 / 81 HR: 74 Rhythm: Sinus Technical Quality: Adequate MEASUREMENTS (Male / Female) Normal Values 2D ECHO LV Diastolic Diameter PLAX 5.7 cm 4.2 - 5.9 / 3.9 - 5.3 cm IVS Diastolic Thickness 1.3 cm 0.6 - 1.0 / 0.6 - 0.9 cm IVS Systolic Thickness 2.2 cm LVPW Diastolic Thickness 1.4 cm 0.6 - 1.0 / 0.6 - 0.9 cm LVPW Systolic Thickness 1.9 cm LVOT Diameter 2.7 cm LV Ejection Fraction 2D Teich 51.6 % LV Ejection Fraction MOD 4C 40.1 % LV Ejection Fraction MOD 2C 49.6 % LV Ejection Fraction 2C AL 49.7 % LA Diameter 3.6 cm RA Systolic Volume 4C AL 59.3 ml RA Systolic Volume 4C MOD 58.3 ml LA Sys Volume AL 59.4 cm cubed LA Sys Volume Index AL 27.1 cm cubed/m squared Aorta at Sinotubular Diameter 3.5 cm IVC Diameter 2.8 cm M-MODE LA Ao Ratio MM 1.6 AV Cusp Separation MM 1.4 cm DOPPLER AV Peak Velocity 149.0 cm/s LVOT Peak Velocity 100.0 cm/s AV Area Cont Eq vti 3.8 cm squared AV Area Cont Eq pk 4.0 cm squared MV Peak Velocity 133.0 cm/s MV Area PHT 3.7 cm squared Mitral E to A Ratio 0.8 TR Peak Velocity 130.0 cm/s TR Peak Gradient 6.8 mmHg TV Peak E Velocity 75.0 cm/s PV Peak Velocity 104.0 cm/s FINDINGS Left Ventricle Technically limited quality echocardiogram because of poor ultrasonic windows. Left ventricle is normal in size. LV systolic function is borderline normal with EF of 50-55%. No regional wall motion abnormalities. Right Ventricle Grossly normal Right Atrium Normal in size Left Atrium Normal in size Mitral Valve Structurally normal mitral valve. Mild mitral regurgitation Aortic Valve Grossly normal. No significant stenosis or regurgitation. Tricuspid Valve Insufficient TR jet to calculate RVSP Pulmonic Valve Not well visualized Pericardium Normal Aorta Normal in size IVC Not well visualized CONCLUSIONS Technically limited quality echocardiogram because of poor ultrasonic windows. LV systolic function is borderline normal with EF of 50-55%. Mild mitral regurgitation Jeff Kumar MD (Electronically Signed) Final Date: 04 December 2024 20:48 S
[2024-12-03] MEDS: fentaNYL 1,000 MCG/100 ML BAG 2.5 MCG IV (10:28)
--- NOTE | 2024-12-03 10:28 | CTR_ITS ---
PROCEDURE INFORMATION: Exam: CT Head Without Contrast Exam date and time: 12/03/2024 3:37 PM Age: 69 years old Clinical indication: Altered mental status/memory loss; Confusion or disorientation; Additional info: AMS TECHNIQUE: Imaging protocol: Computed tomography of the head without contrast. Radiation optimization: All CT scans at this facility use at least one of these dose optimization techniques: automated exposure control; mA and/or kV adjustment per patient size (includes targeted exams where dose is matched to clinical indication); or iterative reconstruction. COMPARISON: CT head wo con* [id number] 07/16/2022 11:06 PM RADIATION DOSE METRICS: Total DLP (mGy-cm): 1358.17 FINDINGS: Brain: Normal. No hemorrhage. Unremarkable white matter. No mass effect. Cerebral ventricles: No ventriculomegaly. Paranasal sinuses: Mild mucosal thickening sphenoid and ethmoid sinuses. Mastoid air cells: Visualized mastoid air cells are well aerated. Bones: Unremarkable. No acute fracture. Soft tissues: Unremarkable. CT/CT head wo con* [id number] IMPRESSION: No acute intracranial abnormality.
[2024-12-03 10:45] LABS: Thyroid Stimulating Hormone 2.37 uIU/mL (0.27-4.20)
[2024-12-03] MEDS: hydrocortisone 100 mg/2 mL SDV IVP ×3 (11:00→22:00)
[2024-12-03] MEDS: aspirin 325 mg Tablet PO (11:01)
[2024-12-03 11:57] LABS: Partial Thromboplastin Time 32.2 SECONDS (23.9-36.7)
[2024-12-03] MEDS: heparin 5,000 unit/mL INJ 1 mL IVP (12:17)
[2024-12-03] MEDS: heparin drip 25,000 UNIT/500 ML PREMIX 31 UNIT IV (12:18)
[2024-12-03 13:16] LABS: Troponin 5 6HR 25.04 ng/L (0-10); Troponin 5 6HR Delta 6.04 ng/L (0-12)
[2024-12-03 14:09] LABS: ABG PCO2 73.4 mmHg (35-45)
[2024-12-03 14:20] LABS: ABG PCO2 50.4 mmHg (35-45); ABG PH Result 7.38 (7.35-7.45); Arterial Blood Gas Hematocrit 26.1 % (37-47); Blood Gas Allen Test Pos; Blood Gas Operator Identificat GD; Blood Gas Sample Site Radial, left; Blood Gas Sample Type Arterial; Carboxyhemoglobin 1.6 %THgb (0.4-20.1); HCO3 ABG 29.7 mmol/L (22-26); HGB O2 Sat 93.2 % (95-100); Ionized Calcium Level - ABG 1.2 mmol/L (1.1-1.4); Methemoglobin 1.1 % (0.4-1.5); Oxygen Device VENT; Oxygen Saturation ABG 95.8; PO2 FiO2 Ratio Arterial Blood 185; Potassium Level - ABG 3.8 mmol/L (3.5-5.0); Total Hemoglobin 8.5 g/dL (12-16)
[2024-12-03] MEDS: norepinephrine 4 MG/250 ML BAG 30 MG IV (14:25)
--- NOTE | 2024-12-03 18:54 | PC.NURSE ---
Ricky the sister of the patient gave permission to give updates to the friend Allan.
[2024-12-03] MEDS: fentaNYL 1,000 MCG/100 ML BAG 10 MCG IV (19:44)
[2024-12-04] VITALS (101 sets, daily range): BP systolic 93–137; BP diastolic 54–89; PULSE 55–81; RESP 16–18; TEMP 36.8; O2SAT 87–97
[2024-12-04] MEDS: propofol 1,000 MG/100 ML INJ 32.66 MG IV (01:16)
[2024-12-04] MEDS: ipratropium-albuterol 3 mL Neb INHALATION ×4 (02:12→20:05)
[2024-12-04 03:11] LABS: Basophils % 0.2 %; Hematocrit 26.7 % (36-47); Lymphocytes # 0.8 10^3/uL (0.8-4.8); Lymphocytes % 8.8 %; Mean Corpuscular HGB Conc 28.5 g/dL (30-55); Mean Corpuscular Hemoglobin 22.6 pg (27-33); Mean Corpuscular Volume 79.2 fl (85-98); Mean Platelet Volume 9.4 fL (7.4-10.4); Monocytes # 0.3 10^3/uL (0.2-0.9); Neutrophils # 8.18 10^3/uL (1.8-7.7); Neutrophils % 87.5 %; Nucleated Red Blood Cells % 0 %; Platelet Count 301 10^3/cmm (157-399); Red Blood Count 3.37 10^6/uL (3.85-5.65); Red Cell Distribution Width 17.8 % (12.1-15.1); White Blood Count 9.35 10^3/uL (3.29-11.43)
[2024-12-04 03:21] LABS: Partial Thromboplastin Time 61.8 SECONDS (23.9-36.7)
[2024-12-04 03:31] LABS: Alanine Aminotransferase 18 U/L (0-33); Albumin Level 3.4 g/dL (3.5-5.2); Alkaline Phosphatase 90 U/L (35-105); Anion Gap 13.7 (5-19); Aspartate Amino Transferase 20 U/L (0-32); Blood Urea Nitrogen 15 mg/dL (8-23); Carbon Dioxide 28 mmol/L (22-29); Chloride 103 mmol/L (98-107); Creatinine Clr Calc Pharmacy 90.4249; Globulin 2.9 g/dL (1.3-4.6); Glomerular Filtration Rate 71.5 mL/min (90-130); Glucose 173 mg/dL (65-115); Osmolality Calculated 297 mOsm/kg (285-295); Potassium 3.7 mmol/L (3.5-5.1); Sodium 141 mmol/L (136-145); Total Bilirubin 0.4 mg/dL (0.15-1.2); Total Protein 6.3 g/dL (6.6-8.7)
[2024-12-04] MEDS: fentaNYL 1,000 MCG/100 ML BAG 12.5 MCG IV ×3 (03:33→17:38)
[2024-12-04] MEDS: propofol 1,000 MG/100 ML INJ 39.19 MG IV ×2 (03:33→06:09)
[2024-12-04] MEDS: hydrocortisone 100 mg/2 mL SDV IVP ×4 (04:26→22:15)
[2024-12-04] MEDS: FUROsemide 10 mg/mL SDV 4mL 40 MG IVP ×2 (04:26→16:38)
[2024-12-04] MEDS: levofloxacin-dextrose 5 % 750 MG/150 ML PREMIX 100 MG IV (06:02)
[2024-12-04] MEDS: heparin drip 25,000 UNIT/500 ML PREMIX 24 UNIT IV (06:03)
[2024-12-04] MEDS: aspirin 325 mg Tablet PO (09:07)
[2024-12-04 09:45] LABS: Partial Thromboplastin Time 50.8 SECONDS (23.9-36.7)
[2024-12-04] MEDS: propofol 1,000 MG/100 ML INJ 35.92 MG IV (09:46)
[2024-12-04] MEDS: pantoprazole 40 mg SDV IVP (09:46)
[2024-12-04] MEDS: linezolid premix 600 MG/300 ML PREMIX 300 MG IV ×2 (09:47→22:15)
[2024-12-04] MEDS: propofol 1,000 MG/100 ML INJ 29.39 MG IV ×2 (12:41→23:23)
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
--- NOTE | 2024-12-04 13:54 | USCV_ITS ---
Brandon Camacho Age: 69 Gender: F : 1955 Exam Date: 12/04/2024 14:52 Ordering Phys: Willi Jackson MD Technologist: [facility] Exam Location: [facility] [place] Indication: r/o dvt HISTORY: R/O DVT PROCEDURES: Venous duplex imaging was performed in bilateral lower extremities. Bilaterally, the common femoral, superficial femoral, profunda femoral, popliteal, posterior tibial, greater saphenous veins, and the peroneal trunk were identified and interrogated in the standard fashion. FINDINGS: Normal 2-D Doppler and augmentation and compressibility throughout the lower extremity venous structures. Additional imaging through the proximal calf veins also reveals no thrombus. Limited evaluation of the greater saphenous vein is patent with no thrombus. CONCLUSIONS No DVT bilateral lower extremities. Dr. Millie Walker DO (Electronically Signed) Final Date: 04 December 2024 15:37 S
[2024-12-04] MEDS: propofol 1,000 MG/100 ML INJ 26.13 MG IV ×2 (16:37→21:21)
[2024-12-05] VITALS (79 sets, daily range): BP systolic 102–163; BP diastolic 57–103; PULSE 56–89; RESP 15–20; TEMP 36.8; O2SAT 89–98
[2024-12-05] MEDS: fentaNYL 1,000 MCG/100 ML BAG 12.5 MCG IV (01:33)
[2024-12-05] MEDS: propofol 1,000 MG/100 ML INJ 32.66 MG IV (02:38)
[2024-12-05] MEDS: ipratropium-albuterol 3 mL Neb INHALATION ×4 (02:41→20:08)
[2024-12-05] MEDS: hydrocortisone 100 mg/2 mL SDV IVP ×4 (04:00→22:56)
[2024-12-05] MEDS: FUROsemide 10 mg/mL SDV 4mL 40 MG IVP ×2 (04:00→16:18)
[2024-12-05 05:54] LABS: Basophils % 0.2 %; Hematocrit 27.1 % (36-47); Lymphocytes # 0.9 10^3/uL (0.8-4.8); Lymphocytes % 7.2 %; Mean Corpuscular HGB Conc 28.8 g/dL (30-55); Mean Corpuscular Hemoglobin 22.8 pg (27-33); Mean Corpuscular Volume 79.2 fl (85-98); Monocytes # 0.4 10^3/uL (0.2-0.9); Monocytes % 3.2 %; Neutrophils # 11.37 10^3/uL (1.8-7.7); Neutrophils % 88.9 %; Nucleated Red Blood Cells % 0 %; Platelet Count 363 10^3/cmm (157-399); Red Blood Count 3.42 10^6/uL (3.85-5.65); Red Cell Distribution Width 18.1 % (12.1-15.1)
[2024-12-05] MEDS: propofol 1,000 MG/100 ML INJ 13.06 MG IV (06:31)
[2024-12-05 06:38] LABS: Alanine Aminotransferase 23 U/L (0-33); Albumin Level 3.5 g/dL (3.5-5.2); Alkaline Phosphatase 80 U/L (35-105); Anion Gap 15.2 (5-19); Aspartate Amino Transferase 34 U/L (0-32); Blood Urea Nitrogen 22 mg/dL (8-23); Carbon Dioxide 29 mmol/L (22-29); Chloride 101 mmol/L (98-107); Creatinine Clr Calc Pharmacy 79.6117; Glomerular Filtration Rate 62.5 mL/min (90-130); Glucose 173 mg/dL (65-115); Osmolality Calculated 301 mOsm/kg (285-295); Potassium 3.2 mmol/L (3.5-5.1); Sodium 142 mmol/L (136-145); Total Bilirubin 0.3 mg/dL (0.15-1.2); Total Protein 6.5 g/dL (6.6-8.7)
[2024-12-05] MEDS: levofloxacin-dextrose 5 % 750 MG/150 ML PREMIX 100 MG IV (08:08)
[2024-12-05] MEDS: potassium chloride oral liq 20 mEq/15 mL UDC 40 MEQ PO (08:09)
[2024-12-05] MEDS: aspirin 325 mg Tablet PO (08:09)
[2024-12-05] MEDS: dexmedeTOMIDine 0.9 % NaCL 400 MCG/100 ML PREMIX IV (08:49)
--- NOTE | 2024-12-05 08:53 | PC.SOCIAL ---
IMM Update pg 2 of IMM not updated @ this time as patient is currently intubated and not anticipated to DC in the next 24-48 hours. Copy left @ bedside and copy dated, initialed and placed in chart.
[2024-12-05] MEDS: linezolid premix 600 MG/300 ML PREMIX 300 MG IV ×2 (09:41→22:56)
[2024-12-05] MEDS: fentaNYL 1,000 MCG/100 ML BAG 10 MCG IV (09:42)
[2024-12-05] MEDS: pantoprazole 40 mg SDV IVP (09:42)
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
--- NOTE | 2024-12-05 12:21 | PC.NURSE ---
Patient was successfully extubated at 1215 without complications by respiratory therapist.
--- NOTE | 2024-12-05 12:25 | PC.NURSE ---
Addendum entered by Davina Christine RN 12/05/24 13:10: Witnessed waste Original Note: 52.322 mls of propofol were waisted along with 70.792 mls of fentanyl by this nurse witnessed by NATA Ghosh.
--- NOTE | 2024-12-05 12:31 | PC.NURSE ---
Patient was successfully extubated at 1204 without complications by respiratory therapist.
[2024-12-06] VITALS (32 sets, daily range): BP systolic 119–168; BP diastolic 63–104; PULSE 68–94; RESP 13–20; TEMP 36.6–37; O2SAT 93–97
[2024-12-06] MEDS: ipratropium-albuterol 3 mL Neb INHALATION ×4 (02:05→20:37)
[2024-12-06] MEDS: FUROsemide 10 mg/mL SDV 4mL 40 MG IVP ×2 (04:09→15:59)
[2024-12-06] MEDS: hydrocortisone 100 mg/2 mL SDV IVP ×4 (04:09→22:15)
[2024-12-06 04:25] LABS: Hematocrit 28.3 % (36-47); Lymphocytes # 0.8 10^3/uL (0.8-4.8); Lymphocytes % 6.4 %; Mean Corpuscular Volume 79.5 fl (85-98); Mean Platelet Volume 9.2 fL (7.4-10.4); Monocytes # 0.4 10^3/uL (0.2-0.9); Monocytes % 3.3 %; Neutrophils # 11.07 10^3/uL (1.8-7.7); Neutrophils % 89.4 %; Nucleated Red Blood Cells % 0 %; Platelet Count 322 10^3/cmm (157-399); Red Blood Count 3.56 10^6/uL (3.85-5.65); Red Cell Distribution Width 17.9 % (12.1-15.1); White Blood Count 12.38 10^3/uL (3.29-11.43)
[2024-12-06 04:46] LABS: Alanine Aminotransferase 19 U/L (0-33); Albumin Level 3.4 g/dL (3.5-5.2); Alkaline Phosphatase 74 U/L (35-105); Anion Gap 12.1 (5-19); Aspartate Amino Transferase 20 U/L (0-32); Blood Urea Nitrogen 23 mg/dL (8-23); Calcium 8.9 mg/dL (8.5-10.5); Carbon Dioxide 33 mmol/L (22-29); Chloride 103 mmol/L (98-107); Creatinine Clr Calc Pharmacy 79.6117; Globulin 3.1 g/dL (1.3-4.6); Glomerular Filtration Rate 62.5 mL/min (90-130); Glucose 203 mg/dL (65-115); Osmolality Calculated 309 mOsm/kg (285-295); Potassium 3.1 mmol/L (3.5-5.1); Sodium 145 mmol/L (136-145); Total Bilirubin 0.3 mg/dL (0.15-1.2); Total Protein 6.5 g/dL (6.6-8.7)
[2024-12-06 04:53] LABS: Magnesium 2.1 mg/dL (1.7-2.3)
[2024-12-06 07:59] LABS: Glucose Point of Care 213 mg/dL (70-110)
[2024-12-06] MEDS: levofloxacin-dextrose 5 % 750 MG/150 ML PREMIX 100 MG IV (08:00)
[2024-12-06] MEDS: aspirin 325 mg Tablet PO (08:07)
[2024-12-06] MEDS: potassium chloride oral liq 20 mEq/15 mL UDC 40 MEQ PO (09:07)
[2024-12-06] MEDS: insulin lispro 100 unit/1 mL SUBCUT ×4 (09:09→21:25)
[2024-12-06] MEDS: linezolid premix 600 MG/300 ML PREMIX 300 MG IV ×2 (11:29→21:12)
[2024-12-06] MEDS: pantoprazole 40 mg SDV IVP (11:30)
[2024-12-06 12:04] LABS: Glucose Point of Care 224 mg/dL (70-110)
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
--- NOTE | 2024-12-06 16:34 | PC.NURSE ---
Report called to [facility] Langesurgical instruments inspector floor. Patient is to transfer to room 276-1.
--- NOTE | 2024-12-06 17:03 | PC.NURSE ---
Patient transferred via wheelchair on 3L NC. All belongings with patient at the time of transfer. Patient oriented to call light use. NATA Lange and INTERACTIVE MEDIA DIRECTOR at bedside. Patient had no complaints or requests at the time of transfer. Patients daughter, Ricky notified via telephone of transfer and new room number.
[2024-12-06 17:11] LABS: Glucose Point of Care 206 mg/dL (70-110)
[2024-12-06 20:26] LABS: Glucose Point of Care 292 mg/dL (70-110)
[2024-12-07] VITALS (13 sets, daily range): BP systolic 120–192; BP diastolic 75–92; PULSE 73–104; RESP 15–18; TEMP 36.5–36.9; O2SAT 92–99; BMI 36.9
[2024-12-07] MEDS: acetaminophen 325 mg Tablet 650 MG PO ×2 (00:27→08:16)
[2024-12-07] MEDS: hyDRALAzine 20 mg/mL INJ 1 mL 10 MG IVP (01:27)
[2024-12-07] MEDS: ipratropium-albuterol 3 mL Neb INHALATION ×4 (02:05→20:13)
[2024-12-07] MEDS: gabapentin 100 mg Capsule PO ×2 (03:18→08:16)
[2024-12-07] MEDS: hydrocortisone 100 mg/2 mL SDV IVP ×2 (04:05→09:47)
[2024-12-07] MEDS: FUROsemide 10 mg/mL SDV 4mL 40 MG IVP ×2 (04:06→15:05)
[2024-12-07 05:46] LABS: Basophils % 0.1 %; Hematocrit 32.4 % (36-47); Lymphocytes # 1.3 10^3/uL (0.8-4.8); Lymphocytes % 10.7 %; Mean Corpuscular Hemoglobin 22.2 pg (27-33); Mean Corpuscular Volume 76.6 fl (85-98); Mean Platelet Volume 9.3 fL (7.4-10.4); Monocytes # 0.5 10^3/uL (0.2-0.9); Neutrophils # 10.29 10^3/uL (1.8-7.7); Neutrophils % 84.5 %; Nucleated Red Blood Cells % 0 %; Platelet Count 363 10^3/cmm (157-399); Red Blood Count 4.23 10^6/uL (3.85-5.65); Red Cell Distribution Width 17.4 % (12.1-15.1); White Blood Count 12.18 10^3/uL (3.29-11.43)
[2024-12-07 06:02] LABS: Alanine Aminotransferase 23 U/L (0-33); Albumin Level 3.8 g/dL (3.5-5.2); Alkaline Phosphatase 78 U/L (35-105); Anion Gap 12.4 (5-19); Aspartate Amino Transferase 26 U/L (0-32); Blood Urea Nitrogen 23 mg/dL (8-23); Calcium 9.2 mg/dL (8.5-10.5); Carbon Dioxide 39 mmol/L (22-29); Chloride 94 mmol/L (98-107); Creatinine Clr Calc Pharmacy 88.9168; Globulin 3.4 g/dL (1.3-4.6); Glomerular Filtration Rate 71.5 mL/min (90-130); Glucose 196 mg/dL (65-115); Osmolality Calculated 305 mOsm/kg (285-295); Sodium 143 mmol/L (136-145); Total Bilirubin 0.6 mg/dL (0.15-1.2); Total Protein 7.2 g/dL (6.6-8.7)
[2024-12-07 06:12] LABS: Potassium 2.4 mmol/L (3.5-5.1)
[2024-12-07] MEDS: levofloxacin-dextrose 5 % 750 MG/150 ML PREMIX 100 MG IV (06:41)
[2024-12-07] MEDS: potassium chloride oral liq 20 mEq/15 mL UDC 40 MEQ PO ×4 (06:41→18:34)
[2024-12-07 07:13] LABS: Glucose Point of Care 216 mg/dL (70-110)
[2024-12-07] MEDS: insulin lispro 100 unit/1 mL SUBCUT ×4 (08:15→20:57)
[2024-12-07] MEDS: aspirin 325 mg Tablet PO (08:16)
[2024-12-07] MEDS: pantoprazole 40 mg SDV IVP (09:47)
[2024-12-07] MEDS: linezolid premix 600 MG/300 ML PREMIX 300 MG IV ×2 (09:47→21:09)
[2024-12-07 10:42] LABS: Glucose Point of Care 211 mg/dL (70-110)
[2024-12-07 13:35] LABS: Procalcitonin 0.17 ng/mL (0-0.5)
[2024-12-07] MEDS: meropenem 1,000 mg SDV 1000 MG IVP ×2 (13:40→20:56)
[2024-12-07] MEDS: heparin 5,000 unit/mL INJ 1 mL 5000 UNIT SUBCUT (13:40)
[2024-12-07] MEDS: metoprolol tartrate 25 mg Tablet PO ×2 (13:40→20:57)
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
[2024-12-07] MEDS: gabapentin 400 mg Capsule PO ×2 (15:05→20:56)
[2024-12-07] MEDS: ropinirole 2 mg Tablet PO ×2 (15:05→20:57)
[2024-12-07 15:32] LABS: Anion Gap 12.9 (5-19); Blood Urea Nitrogen 26 mg/dL (8-23); Calcium 9.5 mg/dL (8.5-10.5); Carbon Dioxide 37 mmol/L (22-29); Chloride 93 mmol/L (98-107); Creatinine Clr Calc Pharmacy 88.7974; Glomerular Filtration Rate 71.5 mL/min (90-130); Glucose 196 mg/dL (65-115); Osmolality Calculated 300 mOsm/kg (285-295); Sodium 140 mmol/L (136-145)
[2024-12-07 15:35] LABS: Potassium 2.9 mmol/L (3.5-5.1)
[2024-12-07 16:11] LABS: MRSA PCR OZH (swab) NOT DETECTED (Not Detecte)
[2024-12-07 16:52] LABS: Glucose Point of Care 219 mg/dL (70-110)
[2024-12-07] MEDS: potassium chloride ER 20 mEq Tablet 40 MEQ PO (17:20)
[2024-12-07] MEDS: ferrous gluconate 324 mg Tablet PO (17:20)
[2024-12-07] MEDS: budesonide 0.5 mg/2 mL Neb INHALATION (20:14)
[2024-12-07 20:30] LABS: Glucose Point of Care 207 mg/dL (70-110)
[2024-12-07] MEDS: ATORVASTATIN 10 MG TABLET PO (20:56)
[2024-12-07] MEDS: hydrocortisone 100 mg/2 mL SDV 50 MG IVP (20:56)
[2024-12-08] VITALS (12 sets, daily range): BP systolic 90–156; BP diastolic 53–81; PULSE 74–101; RESP 15–20; TEMP 36.7–37.1; O2SAT 93–100
[2024-12-08] MEDS: heparin 5,000 unit/mL INJ 1 mL 5000 UNIT SUBCUT ×2 (00:24→12:13)
[2024-12-08] MEDS: meropenem 1,000 mg SDV 1000 MG IVP ×3 (04:10→20:40)
[2024-12-08] MEDS: FUROsemide 10 mg/mL SDV 4mL 40 MG IVP (04:10)
[2024-12-08 04:42] LABS: Basophils % 0.1 %; Hematocrit 30.4 % (36-47); Lymphocytes # 1.8 10^3/uL (0.8-4.8); Lymphocytes % 15.8 %; Mean Corpuscular Hemoglobin 21.9 pg (27-33); Mean Corpuscular Volume 78.4 fl (85-98); Mean Platelet Volume 9.6 fL (7.4-10.4); Monocytes # 0.6 10^3/uL (0.2-0.9); Monocytes % 5.5 %; Neutrophils # 8.89 10^3/uL (1.8-7.7); Nucleated Red Blood Cells % 0 %; Platelet Count 328 10^3/cmm (157-399); Red Blood Count 3.88 10^6/uL (3.85-5.65); Red Cell Distribution Width 17.6 % (12.1-15.1)
[2024-12-08 05:09] LABS: Alanine Aminotransferase 28 U/L (0-33); Albumin Level 3.4 g/dL (3.5-5.2); Alkaline Phosphatase 64 U/L (35-105); Anion Gap 13.4 (5-19); Aspartate Amino Transferase 29 U/L (0-32); Blood Urea Nitrogen 28 mg/dL (8-23); Calcium 9.5 mg/dL (8.5-10.5); Carbon Dioxide 37 mmol/L (22-29); Chloride 96 mmol/L (98-107); Creatinine Clr Calc Pharmacy 88.7974; Globulin 2.9 g/dL (1.3-4.6); Glomerular Filtration Rate 71.5 mL/min (90-130); Glucose 185 mg/dL (65-115); Osmolality Calculated 306 mOsm/kg (285-295); Potassium 3.4 mmol/L (3.5-5.1); Sodium 143 mmol/L (136-145); Total Bilirubin 0.4 mg/dL (0.15-1.2); Total Protein 6.3 g/dL (6.6-8.7)
[2024-12-08 08:23] LABS: Glucose Point of Care 148 mg/dL (70-110)
[2024-12-08] MEDS: potassium chloride ER 20 mEq Tablet 40 MEQ PO ×2 (08:37→12:13)
[2024-12-08] MEDS: ropinirole 2 mg Tablet PO ×3 (08:37→20:40)
[2024-12-08] MEDS: gabapentin 400 mg Capsule PO ×3 (08:38→20:40)
[2024-12-08] MEDS: levothyroxine 25 mcg Tablet PO (08:38)
[2024-12-08] MEDS: insulin lispro 100 unit/1 mL SUBCUT ×4 (08:38→20:40)
[2024-12-08] MEDS: ferrous gluconate 324 mg Tablet PO ×2 (08:38→17:20)
[2024-12-08] MEDS: aspirin 325 mg Tablet 81 MG PO (08:38)
[2024-12-08] MEDS: zonisamide 100 MG Capsule 500 MG PO (08:38)
[2024-12-08] MEDS: hydrocortisone 100 mg/2 mL SDV 50 MG IVP (08:44)
[2024-12-08] MEDS: budesonide 0.5 mg/2 mL Neb INHALATION ×2 (08:46→20:58)
[2024-12-08] MEDS: ipratropium-albuterol 3 mL Neb INHALATION ×3 (08:46→20:58)
[2024-12-08 12:02] LABS: Glucose Point of Care 195 mg/dL (70-110)
[2024-12-08] MEDS: pantoprazole 40 mg SDV IVP (12:13)
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
[2024-12-08 15:55] LABS: Anion Gap 12.6 (5-19); Blood Urea Nitrogen 32 mg/dL (8-23); Calcium 9.7 mg/dL (8.5-10.5); Carbon Dioxide 37 mmol/L (22-29); Chloride 94 mmol/L (98-107); Creatinine Clr Calc Pharmacy 88.7974; Glomerular Filtration Rate 71.5 mL/min (90-130); Glucose 161 mg/dL (65-115); Osmolality Calculated 300 mOsm/kg (285-295); Potassium 3.6 mmol/L (3.5-5.1); Sodium 140 mmol/L (136-145)
[2024-12-08 17:08] LABS: Glucose Point of Care 152 mg/dL (70-110)
[2024-12-08 20:24] LABS: Glucose Point of Care 173 mg/dL (70-110)
[2024-12-08] MEDS: metoprolol tartrate 25 mg Tablet PO (20:40)
[2024-12-08] MEDS: ATORVASTATIN 10 MG TABLET PO (20:40)
[2024-12-09] VITALS (8 sets, daily range): BP systolic 100–164; BP diastolic 65–83; PULSE 81–93; RESP 16–18; TEMP 36.4–37.3; O2SAT 93–100
[2024-12-09] MEDS: heparin 5,000 unit/mL INJ 1 mL 5000 UNIT SUBCUT (01:04)
[2024-12-09] MEDS: meropenem 1,000 mg SDV 1000 MG IVP (04:41)
[2024-12-09 05:17] LABS: Basophils % 0.3 %; Eosinophils # 0.1 10^3/uL (0.0-0.8); Hematocrit 29.6 % (36-47); Lymphocytes % 25.9 %; Mean Corpuscular HGB Conc 28.4 g/dL (30-55); Mean Corpuscular Hemoglobin 22.3 pg (27-33); Mean Corpuscular Volume 78.7 fl (85-98); Mean Platelet Volume 9.5 fL (7.4-10.4); Monocytes # 0.5 10^3/uL (0.2-0.9); Monocytes % 4.7 %; Neutrophils # 7.71 10^3/uL (1.8-7.7); Neutrophils % 67.4 %; Nucleated Red Blood Cells % 0 %; Platelet Count 271 10^3/cmm (157-399); Red Blood Count 3.76 10^6/uL (3.85-5.65); Red Cell Distribution Width 17.8 % (12.1-15.1); White Blood Count 11.43 10^3/uL (3.29-11.43)
[2024-12-09 05:42] LABS: Alanine Aminotransferase 26 U/L (0-33); Albumin Level 3.5 g/dL (3.5-5.2); Alkaline Phosphatase 74 U/L (35-105); Anion Gap 9.5 (5-19); Aspartate Amino Transferase 22 U/L (0-32); Blood Urea Nitrogen 30 mg/dL (8-23); Calcium 9.5 mg/dL (8.5-10.5); Carbon Dioxide 39 mmol/L (22-29); Chloride 99 mmol/L (98-107); Creatinine Clr Calc Pharmacy 88.7974; Globulin 2.7 g/dL (1.3-4.6); Glomerular Filtration Rate 71.5 mL/min (90-130); Glucose 144 mg/dL (65-115); Osmolality Calculated 307 mOsm/kg (285-295); Potassium 3.5 mmol/L (3.5-5.1); Sodium 144 mmol/L (136-145); Total Bilirubin 0.6 mg/dL (0.15-1.2); Total Protein 6.2 g/dL (6.6-8.7)
[2024-12-09] MEDS: ipratropium-albuterol 3 mL Neb INHALATION (07:46)
[2024-12-09] MEDS: budesonide 0.5 mg/2 mL Neb INHALATION (07:46)
[2024-12-09] MEDS: hydrocortisone 100 mg/2 mL SDV 50 MG IVP (08:42)
[2024-12-09] MEDS: insulin lispro 100 unit/1 mL SUBCUT ×2 (08:42→12:52)
[2024-12-09] MEDS: levothyroxine 25 mcg Tablet PO (08:44)
[2024-12-09] MEDS: ropinirole 2 mg Tablet PO ×2 (08:44→15:25)
[2024-12-09] MEDS: metoprolol tartrate 25 mg Tablet PO (08:44)
[2024-12-09] MEDS: ferrous gluconate 324 mg Tablet PO (08:44)
[2024-12-09] MEDS: zonisamide 100 MG Capsule 500 MG PO (08:44)
[2024-12-09] MEDS: gabapentin 400 mg Capsule PO ×2 (08:44→15:25)
[2024-12-09] MEDS: FUROsemide 40 mg Tablet PO (08:46)
[2024-12-09] MEDS: aspirin 81 mg EC Tablet PO (09:48)
--- NOTE | 2024-12-09 11:54 | PM.DCS ---
Discharge Providers Date of Admission: 12/03/24 08:30 Date of Discharge: December 09, 2024 Attending Provider at Admission: Willi Jackson Attending Provider at Discharge: Syed Cary MD Primary Care Provider: Carole Hatfield MD Diagnoses at Discharge Discharge Diagnosis (1) Acute respiratory failure with hypoxia and hypercapnia: Status: Acute (2) Congestive heart failure: Status: Acute Reason for Visit Reason for Visit: sob Brief History: History as per HPI: The patient, a female on baseline 3 L of oxygen with history of COPD, DANA, reported history of congestive heart failure, CKD CKD, metabolic syndrome, other medical problems, was found unresponsive by neighbors outside while yelling for help, prompting an EMS call. On arrival, she was intubated due to respiratory failure and distress, mechanically ventilated, and placed in isolation due to respiratory distress. It is also noted that she reportedly stopped taking her metformin recently following a hospitalization during which she was treated for influenza. Hospital Course Hospital Course She was admitted to the hospital further evaluation and management of hypoxic and hypercapnic respiratory failure requiring mechanical ventilation in setting of congestive heart failure and concerns for aspiration pneumonia. She was started on aggressive IV diuresis along with broad-spectrum antibiotics. She responded well to the treatment and eventually was extubated. Her hospitalization was otherwise unremarkable. She did have dysphagia for which diet was advanced as per speech evaluation is currently able to tolerate dysphagia level 6 diet. Patient responded well to the treatment and is back to her baseline oxygen supplementation of 3 L daily. For discharge: Discussed symptoms with patient and patient's caregiver at the bedside. Multiple options including transition to SNF versus home with home alone discussed in detail with the patient. Family decided to take patient home with home health. Has been discharged in hemodynamically stable condition on adjusted antihypertensive, daily Lasix with lifestyle modification for congestive heart failure. She has finished a course of IV antibiotics for pneumonia. Going forward she needs to be on modified dysphagia level 6 diet. Physical Exam Narrative: Awake and alert. Sitting up in bed. Const: COMMON NORMALS: patient oriented x3 and alert GENERAL APPEARANCE: cooperative and patient mechanically ventilated ORIENTATION/CONSCIOUSNESS: Yes awake HENMT: COMMON NORMALS: oropharynx normal Neck/C-Spine: COMMON NORMALS: no JVD Resp: COMMON NORMALS: normal respiratory effort and clear to auscultation bilaterally AUSCULTATION: clear to auscultation bilaterally, no rhonchi, wheezes (Mild) and diminished lung sounds Cardio: COMMON NORMALS: no JVD, regular rhythm, S1 normal heart sound present, S2 normal heart sound present and No murmurs present (Cardio) RHYTHM: regular rhythm HEART SOUNDS: S1 normal heart sound present and S2 normal heart sound present GI: COMMON NORMALS: Normal to inspection, nondistended, normoactive bowel sounds present, Soft to palpation and non-tender PALPATION: Yes Soft to palpation Extremity: COMMON NORMALS: no joint enlargement and no pedal edema GENERAL: Yes edema Neuro: COMMON NORMALS: patient oriented x3 and moves all extremities SENSORIUM/ORIENTATION: Yes alert Skin: COMMON NORMALS: no rashes or lesions noted GENERAL SKIN EXAM: no rashes or lesions noted RASHES: rashes noted (Bilateral redness of mid to lower shins superimposed on edema) Urinary Catheter Management: Garcia: Cath Placed During This Visit: yes, but has since been removed by the nurse Reason for Continuing Indwelling Catheter: Decision to DC Catheter Urinary Catheter Date of Insertion: 12/03/24 Date Urinary Catheter Removed: 12/08/24 Time Urinary Catheter Discontinued: 18:54 Discharge Data Studies Completed and Pending Completed Studies During Hospitalization Category Date Time Status CT head wo con* [id number] Routine Cat Scan 12/03/24 10:28 Completed XR chest 1V portable [id number] Stat Exams 12/03/24 06:10 Completed XR chest 1V portable [id number] Stat Exams 12/03/24 06:30 Completed XR chest 1V portable [id number] Stat Exams 12/03/24 09:30 [place] [id number] Routine Ultrasound 12/04/24 13:54 Completed CV. echo complete* [id number] Routine Ultrasound 12/03/24 10:25 Completed Pending at discharge Category Date Time Status Sputum Culture and Gram Stain Routine Lab 12/07/24 13:41 Results Radiology Impressions Chest X-Ray 12/03/24 09:30 IMPRESSION: Right IJ catheter terminates near the atriocaval junction. Head CT 12/03/24 10:28 IMPRESSION: No acute intracranial abnormality. Microbiology 12/08/24 18:30 Stool Routine Collection Occult Blood (FIT) - Final 12/07/24 13:41 Sputum - Expectorated Sputum Gram Stain - Final 12/07/24 13:41 Sputum - Expectorated Sputum Sputum Culture - Preliminary 12/03/24 06:36 Blood Blood Culture - Final NO GROWTH AFTER 5 DAYS 12/03/24 06:30 Blood Blood Culture - Final NO GROWTH AFTER 5 DAYS 12/03/24 07:50 Sputum - Endotracheal Tube Aspirate Gram Stain - Final 12/03/24 07:50 Sputum - Endotracheal Tube Aspirate Sputum Culture - Final Echocardiogram: CONCLUSIONS Technically limited quality echocardiogram because of poor ultrasonic windows. LV systolic function is borderline normal with EF of 50-55%. Mild mitral regurgitation Jeff Kumar MD (Electronically Signed) Final Date: 04 December 2024 Laboratory Results WBC 11.43 10^3/uL (3.29-11.43) 12/09/24 04:45 RBC 3.76 10^6/uL (3.85-5.65) L 12/09/24 04:45 Hgb 8.40 g/dL (11.27-16.99) L 12/09/24 04:45 Hct 29.6 % (36-47) L 12/09/24 04:45 MCV 78.7 fl (85-98) L 12/09/24 04:45 MCH 22.3 pg (27-33) L 12/09/24 04:45 MCHC 28.4 g/dL (30-55) L 12/09/24 04:45 RDW 17.8 % (12.1-15.1) H 12/09/24 04:45 Plt Count 271 10^3/cmm (157-399) 12/09/24 04:45 MPV 9.5 fL (7.4-10.4) 12/09/24 04:45 Neut % (Auto) 67.4 % 12/09/24 04:45 Lymph % (Auto) 25.9 % 12/09/24 04:45 Snyder % (Auto) 4.7 % 12/09/24 04:45 Eos % (Auto) 1.0 % 12/09/24 04:45 Baso % (Auto) 0.3 % 12/09/24 04:45 Neut # (Auto) 7.71 10^3/uL (1.8-7.7) H 12/09/24 04:45 Lymph # (Auto) 3.0 10^3/uL (0.8-4.8) 12/09/24 04:45 Snyder # (Auto) 0.5 10^3/uL (0.2-0.9) 12/09/24 04:45 Eos # (Auto) 0.1 10^3/uL (0.0-0.8) 12/09/24 04:45 Baso # (Auto) 0.0 10^3/uL (0.0-0.1) 12/09/24 04:45 Nucleated RBC % (auto) 0 % 12/09/24 04:45 Nucleated RBCs # 0.0 /100WBC 12/09/24 04:45 APTT 50.8 SECONDS (23.9-36.7) H 12/04/24 09:23 Specimen Type Arterial 12/03/24 14:00 Sample Site Radial, left 12/03/24 14:00 ABG pH 7.38 (7.35-7.45) 12/03/24 14:00 ABG pCO2 50.4 mmHg (35-45) H 12/03/24 14:00 ABG pO2 76.0 mmHg (80.0-100.0) L 12/03/24 14:00 ABG PO2/FiO2 Ratio 185 12/03/24 14:00 ABG HCO3 29.7 mmol/L (22-26) H 12/03/24 14:00 ABG O2 Saturation 95.8 12/03/24 14:00 ABG Base Excess 4.0 mmol/L (-2.0-2.0) H 12/03/24 14:00 Wilfredo Test Pos 12/03/24 14:00 A-a O2 Gradient 20.0 mmHg (5-10) H 12/03/24 14:00 Hematocrit 26.1 % (37-47) L 12/03/24 14:00 Hgb O2 Saturation 93.2 % (95-100) L 12/03/24 14:00 Carboxyhemoglobin 1.6 %THgb (0.4-20.1) 12/03/24 14:00 Methemoglobin 1.1 % (0.4-1.5) 12/03/24 14:00 Total Hemoglobin 8.5 g/dL (12-16) L 12/03/24 14:00 Sodium 142.0 mmol/L (131-143) 12/03/24 14:00 Potassium 3.8 mmol/L (3.5-5.0) 12/03/24 14:00 Glucose 173.0 mg/dL (70-115) H 12/03/24 14:00 Ionized Calcium 1.2 mmol/L (1.1-1.4) 12/03/24 14:00 O2 Delivery Device Vent 12/03/24 14:00 O2 Liters/Min 15.0 % 12/03/24 06:07 FiO2 41.0 % 12/03/24 14:00 Tidal Volume 0.50 12/03/24 14:00 PEEP 8.0 cmH20 12/03/24 14:00 [employer] ID Gd 12/03/24 14:00 Sodium 144 mmol/L (136-145) 12/09/24 04:45 Potassium 3.5 mmol/L (3.5-5.1) 12/09/24 04:45 Chloride 99 mmol/L (98-107) 12/09/24 04:45 Carbon Dioxide 39 mmol/L (22-29) H 12/09/24 04:45 Anion Gap 9.5 (5-19) 12/09/24 04:45 BUN 30 mg/dL (8-23) H 12/09/24 04:45 Creatinine 0.8 mg/dL (0.5-0.9) 12/09/24 04:45 GFR Calculation 71.5 mL/min (90-130) L 12/09/24 04:45 Glucose 144 mg/dL (65-115) H 12/09/24 04:45 POC Glucose 173 mg/dL (70-110) H 12/08/24 20:08 Calculated Osmolality 307 mOsm/kg (285-295) H 12/09/24 04:45 Lactic Acid 1.9 mmol/L (0.5-2.2) 12/03/24 06:30 Calcium 9.5 mg/dL (8.5-10.5) 12/09/24 04:45 Magnesium 2.1 mg/dL (1.7-2.3) 12/06/24 04:06 Total Bilirubin 0.6 mg/dL (0.15-1.2) 12/09/24 04:45 AST 22 U/L (0-32) 12/09/24 04:45 ALT 26 U/L (0-33) 12/09/24 04:45 Alkaline Phosphatase 74 U/L (35-105) 12/09/24 04:45 Creatine Kinase 39 U/L (26-192) 12/03/24 06:30 Troponin T Baseline 19 ng/L (0-10) H 12/03/24 06:30 Troponin T 120 Minute 33.80 ng/L (0-10) H 12/03/24 08:30 Delta Troponin T 14.80 ABS# (0-10) H* 12/03/24 08:30 Troponin T Hi Sens 6Hr 25.04 ng/L (0-10) H 12/03/24 12:47 Troponin T Hi Sens 6Hr Delta 6.04 ng/L (0-12) 12/03/24 12:47 NT-Pro-B Natriuret Pep 2796 pg/mL (0-125) H 12/03/24 06:30 Total Protein 6.2 g/dL (6.6-8.7) L 12/09/24 04:45 Albumin 3.5 g/dL (3.5-5.2) 12/09/24 04:45 Globulin 2.7 g/dL (1.3-4.6) 12/09/24 04:45 Procalcitonin 0.17 ng/mL (0-0.5) 12/07/24 05:32 TSH 2.37 uIU/mL (0.27-4.20) 12/03/24 06:30 Urine Color Yellow (Yellow) 12/03/24 06:56 Urine Appearance Clear (CLEAR) 12/03/24 06:56 Urine pH 5.5 (5-7) 12/03/24 06:56 Ur Specific [place] 1.008 (1.005-1.030) 12/03/24 06:56 Urine Protein 3+ (Negative) A 12/03/24 06:56 Urine Glucose (UA) Negative (Normal) 12/03/24 06:56 Urine Ketones Negative (Negative) 12/03/24 06:56 Urine Blood Negative (Negative) 12/03/24 06:56 Urine Nitrate Negative (Negative) 12/03/24 06:56 Urine Bilirubin Negative (Negative) 12/03/24 06:56 Urine Urobilinogen 0.2 mg/dL (Negative) 12/03/24 06:56 Ur Leukocyte Esterase Negative (Negative) 12/03/24 06:56 Urine RBC 0-2 /hpf (0-2) 12/03/24 06:56 Urine WBC 0-5 /hpf (0-5) 12/03/24 06:56 Ur Squamous Epith Cells 0-5 /hpf (0-5) 12/03/24 06:56 Amorphous Sediment Not Reportable 12/03/24 06:56 Urine Bacteria None seen /hpf (NONE) 12/03/24 06:56 Hyaline Casts 39.70 /lpf 12/03/24 06:56 Nasal MRSA (PCR) Not detected (Not Detecte) 12/07/24 14:42 Influenza A (PCR) Negative (Negative) 12/03/24 07:55 Influenza Type B (PCR) Negative (Negative) 12/03/24 07:55 RSV (PCR) Negative (Negative) 12/03/24 07:55 SARS-CoV-2 (PCR) Negative (Negative) 12/03/24 07:55 Vitals Last Vital Signs Temp 97.6 F 12/09/24 11:31 Pulse 88 12/09/24 11:31 Resp 18 12/09/24 11:31 BP 105/65 12/09/24 11:31 Pulse Ox 93 12/09/24 11:31 O2 Del Method Nasal Cannula 12/09/24 11:31 O2 Flow Rate 3 12/09/24 08:00 FiO2 40 12/05/24 11:03 Discharge Plan Discharge Patient Disposition: Home Condition: Stable Prescriptions: New metoprolol tartrate 25 mg Tablet 25 mg PO BID@0900,2100 Qty: 60 0RF prednisone 10 mg tablet See Taper PO DIRECTED Qty: 42 0RF Taper: predniSONE 60-10 60 mg Daily for 2 Days and 0 Hour 50 mg Daily for 2 Days and 0 Hour 40 mg Daily for 2 Days and 0 Hour 30 mg Daily for 2 Days and 0 Hour 20 mg Daily for 2 Days and 0 Hour 10 mg Daily for 2 Days and 0 Hour Rx Instructions: see taper instructions Continued levothyroxine 25 mcg tablet 25 mcg PO DAILY Qty: 90 1RF venlafaxine [Effexor XR] 37.5 mg capsule,extended release 24hr 37.5 mg PO .morning Qty: 90 2RF Rx Instructions: Take one capsule every morning with 150 mg capsule, total dose 187.5 mg venlafaxine 150 mg capsule,extended release 24hr 150 mg PO .morning Qty: 90 2RF Rx Instructions: Take one capsule every morning with 37.5 mg capsule, total dose 187.5 mg ropinirole 2 mg tablet 2 mg PO TID Qty: 90 5RF omeprazole 20 mg capsule,delayed release(DR/EC) 20 mg PO QAM Qty: 90 1RF ferrous gluconate 324 mg (38 mg iron) tablet 324 mg PO BID Qty: 180 3RF hydroxyzine HCl 50 mg Tablet 50 mg PO BID PRN (Reason: Anxiety) tolterodine 2 mg capsule,extended release 24hr 2 mg PO QAM atorvastatin 10 mg tablet 10 mg PO BEDTIME Januvia 100 mg tablet 100 mg PO QAM albuterol sulfate 90 mcg/actuation HFA aerosol inhaler 2 puff INHALATION Q6H PRN (Reason: Shortness Of Breath) Qty: 6.7 0RF furosemide 40 mg tablet 40 mg PO QAM Qty: 4 0RF zonisamide 100 mg capsule 500 mg PO DAILY gabapentin 400 mg capsule 400 mg PO TID fluticasone propionate 50 mcg/actuation spray,suspension 1 spray INTRANASAL BID PRN (Reason: Nasal Congestion) loratadine 10 mg Tablet 10 mg PO DAILY Discontinued triamterene-hydrochlorothiazid 37.5-25 mg tablet 1 tab PO DAILY metformin 1,000 mg tablet 1,000 mg PO BID Discharge Orders: Discharge Order (Routine); Ordered 12/09/24 Ordered By: Syed Cary Referrals: Carole Hatfield MD [Primary Care Provider, [facility]] - 2 weeks Referral Note: We have notified your physician's clinic of the need for a follow-up appointment to be scheduled. If you have not heard from them within the next 2 business days, please call them directly. Discharge Diet: Cardiac and Diabetic Discharge Activity: Resume usual activity and Increase activity as tolerated Patient Instructions: CHF Stoplight, Opioid Safety Activity Restrictions/Additional Instructions: Restrict fluid intake to less than 1500 cc, salt intake to less than 2 g daily. Advised to check his weight daily at home. Is advised that weight today would be the dry weight and if body weight increases by around 5 pounds, patient is to take an extra dose of Lasix daily till body weight comes down to weight today. If not able to come down to dry body weight in 1 week, then is to call cardiology office for further recommendations. Patient was counseled in detail to take medications regularly as prescribed. Please check your blood pressure daily at home and do a blood pressure diary. Goal blood pressure is between 100-140 systolic. Do not take home dose of triamterene hydrochlorothiazide and metformin for now. Dysphagia level 6 diet Discharge Attestations Time Spent in Discharge Care*: greater than 30 min Status at Discharge: Cognitive status at discharge: cognitively intact, Behavioral status at discharge: cooperative, Functional status at discharge: independent ambulation, Overall status at discharge: patient is back to baseline Quality Metrics Clinical Quality Measures [ No reported AMI, CVA or VTE this stay] Coding Level of Care Code 78892 Total time (in minutes) for Discharge: 65 Diagnoses Acute respiratory failure with hypoxia and hypercapnia J96.01; J96.02 Congestive heart failure I50.9
[2024-12-09 13:27] LABS: Glucose Point of Care 159 mg/dL (70-110)
[2024-12-09 13:27] LABS: Glucose Point of Care 216 mg/dL (70-110)
== END 2024-12-09 15:43 | disposition home or self-care (01) | DRG 208 ==
LOC: ER 06:30 → ICU 08:30 → MEDSURG 12-06 16:52
PROVIDERS: Internal Medicine; Admitting Provider Internal Medicine; Emergency Provider Family Medicine; PCP Family Medicine; Visit Provider Student in an Organized Health Care Education/Training Program
DX: J96.01 Acute respiratory failure with hypoxia (principal); J69.0 Pneumonitis due to inhalation of food and vomit; G93.41 Metabolic encephalopathy; I50.33 Acute on chronic diastolic (congestive) heart failure; J44.1 Chronic obstructive pulmonary disease with (acute) exacerbation; F31.81 Bipolar II disorder; I13.0 Hypertensive heart and chronic kidney disease with heart failure and stage 1 through stage 4 chronic kidney disease, or unspecified chronic kidney disease; J96.02 Acute respiratory failure with hypercapnia; R13.10 Dysphagia, unspecified; E66.01 Morbid (severe) obesity due to excess calories; E03.9 Hypothyroidism, unspecified; F17.290 Nicotine dependence, other tobacco product, uncomplicated; R91.1 Solitary pulmonary nodule; G47.33 Obstructive sleep apnea (adult) (pediatric); E88.810 Metabolic syndrome; E78.5 Hyperlipidemia, unspecified; G25.81 Restless legs syndrome; K21.9 Gastro-esophageal reflux disease without esophagitis; E11.42 Type 2 diabetes mellitus with diabetic polyneuropathy; F60.3 Borderline personality disorder; F43.12 Post-traumatic stress disorder, chronic; N18.30 Chronic kidney disease, stage 3 unspecified; E11.22 Type 2 diabetes mellitus with diabetic chronic kidney disease; D63.1 Anemia in chronic kidney disease; E87.6 Hypokalemia; D72.829 Elevated white blood cell count, unspecified; Z11.52 Encounter for screening for COVID-19; Z79.899 Other long term (current) drug therapy; Z79.84 Long term (current) use of oral hypoglycemic drugs; Z79.890 Hormone replacement therapy; Z88.5 Allergy status to narcotic agent; Z88.0 Allergy status to penicillin; Z88.2 Allergy status to sulfonamides; Z68.36 Body mass index [BMI] 36.0-36.9, adult
CPT/HCPCS: 36415; 36416; 36592; 36600; 51702; 70450; 71045; 80048; 80051; 80053; 81001; 82274; 82330; 82550; 82805; 82962; 83605; 83735; 83880; 84145; 84443; 84484; 85018; 85025; 85730; 87040; 87070; 87205; 87637; 92523; 92526; 92610; 93005; 93306; 93970; 94002; 94003; 94640; 94660; 94799; 96365; 96366; 96367; 96372; 96374; 96375; 96376; 97110; 97116; 97162; 97166; 97530; 99291; 99292; J0360; J1644; J1720; J1815; J1940; J1956; J2020; J2185; J2470; J2704; J2919; J3010; J3490; J7626; J9999

== ENCOUNTER 2024-12-23 08:06 | Inpatient (IN) | payer MEDICARE, MEDICAID, SELFPAY ==
[2024-10-30 09:59] VITALS: BP 130/87; BMI 35.1
[2024-12-23] VITALS (18 sets, daily range): BP systolic 91–172; BP diastolic 55–109; PULSE 64–121; RESP 15–28; TEMP 36.7–36.8; O2SAT 94–100; BMI 33.4
--- NOTE | 2024-12-23 08:08 | XRR_ITS ---
PROCEDURE INFORMATION: Exam: XR Chest Exam date and time: 12/23/2024 8:16 AM Age: 69 years old Clinical indication: Shortness of breath; Additional info: SOB TECHNIQUE: Imaging protocol: Radiologic exam of the chest. Views: 1 view. Total images: 1 COMPARISON: CR XR chest 1V portable [id number] 12/03/2024 9:39 AM FINDINGS: Tubes, catheters and devices: Interval removal of the NG tube, endotracheal tube and right IJ line. Lungs: there is increased interstitial density consistent with pulmonary vascular congestion. Increased bibasilar pulmonary density favored to represent atelectasis although airspace edema or infection can not be excluded. Pleural spaces: Blunting of the costophrenic angles, consistent with small pleural effusions or pleural thickening. Heart/Mediastinum: Stable cardiomediastinal silhouette with enlargement of the heart. Bones/joints: No acute osseous abnormality identified. XR/XR chest 1V portable [id number] IMPRESSION: Findings most consistent with congestive heart failure. Increased bibasilar opacities may be on the basis of atelectasis, airspace edema, or pneumonia in the appropriate clinical context. Follow-up chest x-rays are recommended.
--- NOTE | 2024-12-23 08:14 | ECG_ITS ---
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 Measurements Intervals [place] Rate: 120 P: 71 NE: 155 QRS: 81 QRSD: 91 T: 71 QT: 424 QTc: 600 Interpretive Statements SINUS TACHYCARDIA NONSPECIFIC ST & T-WAVE ABNORMALITY ABNORMAL RHYTHM ECG Compared to ECG 12/03/2024 09:43:48 T-wave abnormality now present Electronically Signed On 12-23-2024 12:28:40 CDT by Shai Rowell M.D. [id number]
[2024-12-23 08:15] LABS: Arterial Blood Gas Hematocrit 29.8 % (37-47); Base Excess ABG -0.5 mmol/L (-2.0-2.0); Blood Gas Allen Test Pos; Blood Gas Operator Identificat WALCI; Blood Gas Sample Site Radial, left; Blood Gas Sample Type Arterial; Carboxyhemoglobin 1.9 %THgb (0.4-20.1); HGB O2 Sat 91.3 % (95-100); Methemoglobin 0.2 % (0.4-1.5); Oxygen Device NRB; PO2 ABG 84.6 mmHg (80.0-100.0); Total Hemoglobin 9.7 g/dL (12-16)
[2024-12-23 08:16] LABS: ABG PCO2 78.2 mmHg (35-45); ABG PH Result 7.18 (7.35-7.45)
[2024-12-23 08:24] LABS: Basophils # 0.1 10^3/uL (0.0-0.1); Basophils % 0.5 %; Eosinophils # 0.2 10^3/uL (0.0-0.8); Eosinophils % 0.9 %; Hematocrit 35.3 % (36-47); Lymphocytes # 3.7 10^3/uL (0.8-4.8); Lymphocytes % 17.5 %; Mean Corpuscular HGB Conc 27.2 g/dL (30-55); Mean Corpuscular Volume 84.4 fl (85-98); Mean Platelet Volume 9.2 fL (7.4-10.4); Monocytes # 0.7 10^3/uL (0.2-0.9); Monocytes % 3.2 %; Neutrophils # 16.31 10^3/uL (1.8-7.7); Nucleated Red Blood Cells % 0.1 %; Platelet Count 431 10^3/cmm (157-399); Red Blood Count 4.18 10^6/uL (3.85-5.65); Red Cell Distribution Width 21.6 % (12.1-15.1); White Blood Count 21.18 10^3/uL (3.29-11.43)
[2024-12-23 08:40] LABS: INR 0.97 (0.8-1.2)
[2024-12-23] MEDS: cefTRIAXone 1,000 mg SDV 1000 MG IVP (08:43)
[2024-12-23] MEDS: AZITHROMYCIN ADD-Vantage 500 MG in 0.9% NaCl ADD-Vantage 250 ML 250 MG IV (08:43)
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
[2024-12-23 08:56] LABS: Alanine Aminotransferase 89 U/L (0-33); Albumin Level 4.1 g/dL (3.5-5.2); Alkaline Phosphatase 106 U/L (35-105); Anion Gap 14.6 (5-19); Aspartate Amino Transferase 112 U/L (0-32); Blood Urea Nitrogen 18 mg/dL (8-23); Calcium 8.9 mg/dL (8.5-10.5); Carbon Dioxide 29 mmol/L (22-29); Chloride 105 mmol/L (98-107); Creatinine Clr Calc Pharmacy 84.3018; Glomerular Filtration Rate 71.5 mL/min (90-130); Glucose 280 mg/dL (65-115); NT Pro B Type Natriuretic Pept 5505 pg/mL (0-125); Osmolality Calculated 312 mOsm/kg (285-295); Potassium 3.6 mmol/L (3.5-5.1); Sodium 145 mmol/L (136-145); Total Bilirubin 1.1 mg/dL (0.15-1.2); Total Protein 7.1 g/dL (6.6-8.7)
[2024-12-23 09:13] LABS: Troponin(5th) Baseline 47 ng/L (0-10)
[2024-12-23 09:42] LABS: ABG PCO2 55.9 mmHg (35-45); ABG PH Result 7.33 (7.35-7.45); Arterial Blood Gas Hematocrit 25.8 % (37-47); Base Excess ABG 2.5 mmol/L (-2.0-2.0); Blood Gas Allen Test Pos; Blood Gas Operator Identificat WALCI; Blood Gas Sample Site Radial, left; Blood Gas Sample Type Arterial; HCO3 ABG 29.1 mmol/L (22-26); Oxygen Device BIPAP; PO2 ABG 83.2 mmHg (80.0-100.0); PO2 FiO2 Ratio Arterial Blood 237
[2024-12-23 10:50] LABS: Troponin 5 2HR 53.89 ng/L (0-10); Troponin 5 2HR Delta 6.89 ABS# (0-10)
--- NOTE | 2024-12-23 10:50 | ECG_ITS ---
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 Measurements Intervals [place] Rate: 85 P: 66 RI: 146 QRS: 72 QRSD: 90 T: 82 QT: 387 QTc: 460 Interpretive Statements SINUS RHYTHM WITH OCCASIONAL SUPRAVENTRICULAR PREMATURE COMPLEXES Compared to ECG 12/23/2024 08:14:01 Sinus tachycardia no longer present T-wave abnormality no longer present Electronically Signed On 12-23-2024 12:37:34 CDT by Shai Rowell M.D. [id number]
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
[2024-12-23] MEDS: ipratropium-albuterol 3 mL Neb INHALATION ×2 (13:23→19:54)
[2024-12-23] MEDS: FUROsemide 10 mg/mL SDV 4mL 40 MG IVP (13:40)
[2024-12-23] MEDS: methylPREDNISolone sod succ 40 mg/mL INJ IVP ×2 (13:40→20:18)
[2024-12-23 14:39] LABS: Troponin 5 6HR 51.26 ng/L (0-10); Troponin 5 6HR Delta 4.26 ng/L (0-12)
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
--- NOTE | 2024-12-23 15:49 | PC.NURSE ---
Addendum entered by Allison Dowd LPN 12/23/24 16:16: This nurse assumed care of pt at this time. Original Note: This nurse took report from NATA Cotton in ER at 1548.
--- NOTE | 2024-12-23 16:25 | ECG_ITS ---
[facility] [place] [place] [facility] Date: 2024-12-23 Pat Name: Brandon Camacho Department: Room: 269 Gender: Female Scale Balancer: : 1955 Requested By: Heidi Hilton Order Number: [id number] Gerda MD: Shai Rowell M.D. Measurements Intervals [place] Rate: 88 P: 0 TX: 0 QRS: 66 QRSD: 88 T: 70 QT: 376 QTc: 457 Interpretive Statements Sinus Rhythm No significant abnormality noted. Compared to ECG 12/23/2024 10:50:29 No significant change Electronically Signed On 12-23-2024 20:00:01 CDT by Shai Rowell M.D. [email or web address]
[2024-12-23 16:33] LABS: Glucose Point of Care 237 mg/dL (70-110)
--- NOTE | 2024-12-23 17:34 | PC.NURSE ---
Patient states, When I am about out of food I go to the [facility] place in [place].
--- NOTE | 2024-12-23 17:53 | PC.NURSE ---
Login in room to on patient's telemetry. Patient states, Do I really have to wear it I don't have any heart problems. This nurse explained that the doctor ordered it for her and she wanted to monitor it. Patient states, I really just don't think I need it and it bothers me. Dr. Berger notified.
[2024-12-23] MEDS: insulin lispro 100 unit/1 mL SUBCUT ×2 (17:57→21:58)
[2024-12-23 18:35] LABS: Adenovirus Not Detected (NOT DETECT); Chlamydia Pneumoniae Not Detected (NOT DETECT); Coronavirus 229E,HKU1,NL63,OC4 Not Detected (NOT DETECT); Human Metapneumovirus Not Detected (NOT DETECT); Human Rhinovirus/Enterovirus Not Detected (NOT DETECT); Influenza A Not Detected (NOT DETECT); Influenza A H1 Not Detected (NOT DETECT); Influenza A H1-2009 Not Detected (NOT DETECT); Influenza A H3 Not Detected (NOT DETECT); Influenza B Not Detected (NOT DETECT); Mycoplasma Pneumoniae Not Detected (NOT DETECT); Parainfluenza Virus Type 1 Not Detected (NOT DETECT); Parainfluenza Virus Type 2 Not Detected (NOT DETECT); Parainfluenza Virus Type 3 Not Detected (NOT DETECT); Parainfluenza Virus Type 4 Not Detected (NOT DETECT); Respiratory Syncytial Virus A Not Detected (NOT DETECT); Respiratory Syncytial Virus B Not Detected (NOT DETECT); SARS-COV-2 Not Detected (NOT DETECT)
[2024-12-23] MEDS: budesonide 0.5 mg/2 mL Neb INHALATION (19:54)
[2024-12-23] MEDS: hyDROXYzine 25 mg Capsule 50 MG PO (20:17)
[2024-12-23] MEDS: ATORVASTATIN 10 MG TABLET PO (20:18)
[2024-12-23] MEDS: ropinirole 2 mg Tablet PO (20:18)
[2024-12-23] MEDS: metoprolol tartrate 25 mg Tablet PO (20:18)
[2024-12-23] MEDS: gabapentin 400 mg Capsule PO (20:18)
[2024-12-23 20:56] LABS: Glucose Point of Care 254 mg/dL (70-110)
[2024-12-24] VITALS (14 sets, daily range): BP systolic 114–150; BP diastolic 67–80; PULSE 67–103; RESP 16–20; TEMP 36.4–36.9; O2SAT 88–99
[2024-12-24] MEDS: ipratropium-albuterol 3 mL Neb INHALATION ×4 (02:17→21:04)
[2024-12-24] MEDS: methylPREDNISolone sod succ 40 mg/mL INJ IVP ×2 (04:51→11:24)
[2024-12-24 05:13] LABS: Basophils % 0.1 %; Hematocrit 29.1 % (36-47); Lymphocytes # 0.6 10^3/uL (0.8-4.8); Lymphocytes % 5.7 %; Mean Corpuscular HGB Conc 28.5 g/dL (30-55); Mean Corpuscular Hemoglobin 22.9 pg (27-33); Mean Corpuscular Volume 80.2 fl (85-98); Mean Platelet Volume 9.8 fL (7.4-10.4); Monocytes # 0.1 10^3/uL (0.2-0.9); Neutrophils # 10.24 10^3/uL (1.8-7.7); Neutrophils % 92.7 %; Nucleated Red Blood Cells % 0 %; Platelet Count 335 10^3/cmm (157-399); Red Blood Count 3.63 10^6/uL (3.85-5.65); Red Cell Distribution Width 21.2 % (12.1-15.1); White Blood Count 11.05 10^3/uL (3.29-11.43)
[2024-12-24 05:26] LABS: D Dimer 1.33 ug/mLFEU (0-0.59)
[2024-12-24 05:34] LABS: Alanine Aminotransferase 54 U/L (0-33); Albumin Level 3.7 g/dL (3.5-5.2); Alkaline Phosphatase 90 U/L (35-105); Anion Gap 14.9 (5-19); Aspartate Amino Transferase 29 U/L (0-32); Blood Urea Nitrogen 22 mg/dL (8-23); Calcium 9.2 mg/dL (8.5-10.5); Carbon Dioxide 33 mmol/L (22-29); Chloride 101 mmol/L (98-107); Creatinine Clr Calc Pharmacy 84.3018; Globulin 2.7 g/dL (1.3-4.6); Glomerular Filtration Rate 83.5 mL/min (90-130); Glucose 225 mg/dL (65-115); Osmolality Calculated 310 mOsm/kg (285-295); Potassium 3.9 mmol/L (3.5-5.1); Sodium 145 mmol/L (136-145); Total Bilirubin 0.5 mg/dL (0.15-1.2); Total Protein 6.4 g/dL (6.6-8.7)
[2024-12-24] MEDS: venlafaxine ER (24HR) 150 mg Capsule PO (05:56)
[2024-12-24] MEDS: pantoprazole DR 40 mg Tablet PO ×2 (05:56→08:32)
[2024-12-24] MEDS: venlafaxine ER (24HR) 37.5 mg Capsule PO (05:56)
[2024-12-24 07:04] LABS: Glucose Point of Care 251 mg/dL (70-110)
[2024-12-24] MEDS: budesonide 0.5 mg/2 mL Neb INHALATION ×2 (08:12→21:04)
[2024-12-24] MEDS: levothyroxine 25 mcg Tablet PO (08:32)
[2024-12-24] MEDS: cefTRIAXone 1,000 mg SDV 1000 MG IVP (08:32)
[2024-12-24] MEDS: ropinirole 2 mg Tablet PO ×3 (08:33→20:59)
[2024-12-24] MEDS: gabapentin 400 mg Capsule PO ×3 (08:33→20:58)
[2024-12-24] MEDS: metoprolol tartrate 25 mg Tablet PO ×2 (08:33→20:59)
[2024-12-24] MEDS: insulin lispro 100 unit/1 mL SUBCUT ×4 (08:34→20:59)
--- NOTE | 2024-12-24 10:18 | PC.CHAP ---
Pastoral Care Encounter/Spiritual Assessment Type of Contact [] Declined software manager visit [] Patient/Family/Request visit [] Outpatient visit [] Follow-up visit [] Physician referral [] Code/Alert [x] Routine visit [] Staff referral [] Actively dying [] Patient sleeping [] Family support [] [] Out of room [] Palliative care [] [] Receiving care in room [] Pre-surgical visit [] Trauma [] Long length of stay [] ICU visit [] Other: Relational/Emotional Strength [] Patient feels connected with others/family/visitors/staff [] Distress [] Loneliness/isolation [] Abandonment Spirituality of Patient [x] Person of Anuja [] Attends Yazdanism of their Anuja [x] Believes in Prayer [] Reads Bible or Roman Catholic materials [] There are Spiritual issues to be addressed Ship'S Engineer Interventions [x] Prayer [x] Active listening [] Non-anxious presence [] Spiritual/emotional support [] Crisis/trauma care [] Spiritual counseling [] Bereavement support [] Provided bereavement packet [x] Provided Bible/devotional materials [] Provided toy/stuffed animal, coloring book to patient or family member [] Provided Communion [] Anointing/[place] [] Salvation [x] Completed spiritual assessment [] Other: Impact on Illness or Injury [] Angry [] Fearful [] Anxious [] Often cries [] Exhaustion [] Unable to work [] Unable to attend jew [] Unable to walk/stand [] Unable to read [] Unable to drive [] Unable to eat/drink [] Unable to sleep [] Unable to be with family [] Patient intubated [] Other: Summary Time spent with patient 10 min
[2024-12-24 10:31] LABS: Glucose Point of Care 234 mg/dL (70-110)
[2024-12-24] MEDS: FUROsemide 10 mg/mL SDV 4mL 40 MG IVP (11:24)
[2024-12-24 16:02] LABS: Glucose Point of Care 233 mg/dL (70-110)
--- NOTE | 2024-12-24 17:44 | PM.PN ---
Subjective Subjective: clinically better today, states that she would like to go home. Then goes on to state that her daughter and son left for vacation to [place] so there is no one to assist her at home. Also states that she has no services at home. States that she typically drives herself to all her appointments, however per nursing report has not been able to get out of bed here. I am uncertain if these statements are true, i am unable to find a phone number listed for her daughter today. Discussed in heart to heart rounds, case management to verify safety for discharge after assessing home situation. Medications: Reviewed: Yes Vitals/I&O/Wt Last Vital Signs Temp 98.4 F 12/24/24 15:28 Pulse 67 12/24/24 15:28 Resp 16 12/24/24 15:28 BP 133/75 12/24/24 15:28 Pulse Ox 95 12/24/24 15:28 O2 Del Method Room Air 12/24/24 15:28 O2 Flow Rate 3 12/24/24 14:22 FiO2 35 12/23/24 13:24 12/24/24 12/24/24 12/24/24 06:59 14:59 22:59 Output Total 450 / 450 2400 / 2850 Balance -450 / -450 -2400 / -2850 Weight last 48 hrs Weight 99.79 kg Weight 99.79 kg Weight 99.79 kg Physical Exam Narrative: General: No acute distress, AO x3 HEENT: PERRLA, pupils bilaterally equal and reactive, pallors not present Chest: Normal vesicular breath sounds, no added sounds, equal good air entry bilaterally CVS: S1-S2 regular, no murmurs, no tachycardia, no gallops, no rubs Abdomen: Soft, nontender, no organomegaly, bowel sounds present Neuro: No focal deficits, no facial deformity, AO x3, power 5/5 in all limbs Extremities bilateral lower extremity pitting edema. Urinary Catheter Management: Garcia: Cath Placed During This Visit: yes Reason for Continuing Indwelling Catheter: Accurate Measurement of Urinary Output in Critically Ill Patients Urinary Catheter Date of Insertion: 12/23/24 Urinary Catheter Time of Insertion: 13:38 Data 12/24/24 04:55 12/24/24 04:55 Micro: Microbiology 12/23/24 09:01 Blood Culture - Preliminary Blood NEGATIVE TO DATE 12/23/24 08:45 Blood Culture - Preliminary Blood NEGATIVE TO DATE A&P Assessment and plan (1) Acute and chronic respiratory failure with hypercapnia: Acute on chronic hypercapnic respiratory failure most likely related to COPD exacerbation CHF exacerbation versus obstructive sleep apnea. Currently on BiPAP ventilation. Continue until pCO2 continues to trend down and pH normalizes. Review of past numbers shows that patient has similarly presented with hypercapnic respiratory failure with PCO2 levels up to 93 in November 2024 as well. Today upon arrival her pH was at 7.18, CO2 was 78.2 PO2 of 84.6. She will likely benefit from home use of BiPAP at nighttime. Will order her for a sleep study as outpatient to facilitate this. Unfortunately we do not have the capability to perform a sleep study as inpatient. (2) Acute exacerbation of chronic obstructive pulmonary disease: Methylprednisolone 40 mg IVP every 8 hours duoneb q6h, budesonide q12h scheduled nebulization empiric CTX and azithromycin given leukocytosis of 21,000 today Pending respiratory viral panel Continue BiPAP ventilation (3) Congestive heart failure: Acute on chronic heart failure with preserved ejection fraction. Lasix 40 mg IV every 24 hours. monitor I/O and renal output Chest x-ray showing bilateral infiltrates, most concerning for CHF exacerbation. Plan DVT prophylaxis: Lovenox 12/24/24: Patient is breathing better today. Transition steroids from iv to po prednisone 40mg daily. transition lasix to 40mg po daily. Patient states that she does not have any family to help her currently as they left for [place] on vacation without informing her. She states she drives to her appointments however this does not seem consistent with nursing reports that she has not been able to ambulate out of bed. Reviewed PT notes from last admission recently that make note of patient using a wheeled walker. Pt eval ordered today. As is home 02 eval, patient states that she does not wear 02 at home all the time. Case management to verify safety of home situation and get back with me later to assess safe discharge planning PDMP PDMP Reviewed: Not Reviewed Attestations Medical Necessity Statement*: transition iv to po steroids, iv to po lasix, assess safety of home situation for discharge Coding Level of Care Code Acute Code for Chg Fwd Diagnoses Acute and chronic respiratory failure with hypercapnia J96.22 Acute exacerbation of chronic obstructive pulmonary disease J44.1 Congestive heart failure I50.9
[2024-12-24 20:16] LABS: Glucose Point of Care 288 mg/dL (70-110)
[2024-12-24] MEDS: ATORVASTATIN 10 MG TABLET PO (20:59)
[2024-12-25] VITALS (10 sets, daily range): BP systolic 163–185; BP diastolic 77–98; PULSE 70–98; RESP 17–18; TEMP 36.6–36.8; O2SAT 91–98
[2024-12-25] MEDS: ipratropium-albuterol 3 mL Neb INHALATION ×3 (02:06→15:45)
[2024-12-25 03:07] LABS: Basophils % 0.1 %; Eosinophils % 0.1 %; Hematocrit 30.2 % (36-47); Lymphocytes % 14.4 %; Mean Corpuscular HGB Conc 28.8 g/dL (30-55); Mean Corpuscular Hemoglobin 23.5 pg (27-33); Mean Corpuscular Volume 81.4 fl (85-98); Mean Platelet Volume 9.3 fL (7.4-10.4); Monocytes # 0.6 10^3/uL (0.2-0.9); Monocytes % 4.6 %; Neutrophils # 10.91 10^3/uL (1.8-7.7); Neutrophils % 80.4 %; Nucleated Red Blood Cells % 0 %; Platelet Count 318 10^3/cmm (157-399); Red Blood Count 3.71 10^6/uL (3.85-5.65); Red Cell Distribution Width 21.5 % (12.1-15.1); White Blood Count 13.58 10^3/uL (3.29-11.43)
[2024-12-25 03:44] LABS: Alanine Aminotransferase 38 U/L (0-33); Albumin Level 3.6 g/dL (3.5-5.2); Alkaline Phosphatase 82 U/L (35-105); Anion Gap 12.7 (5-19); Aspartate Amino Transferase 13 U/L (0-32); Blood Urea Nitrogen 24 mg/dL (8-23); Calcium 9.5 mg/dL (8.5-10.5); Carbon Dioxide 34 mmol/L (22-29); Chloride 101 mmol/L (98-107); Creatinine Clr Calc Pharmacy 84.3018; Globulin 2.7 g/dL (1.3-4.6); Glomerular Filtration Rate 71.5 mL/min (90-130); Glucose 171 mg/dL (65-115); Osmolality Calculated 306 mOsm/kg (285-295); Potassium 3.7 mmol/L (3.5-5.1); Sodium 144 mmol/L (136-145); Total Bilirubin 0.4 mg/dL (0.15-1.2); Total Protein 6.3 g/dL (6.6-8.7)
[2024-12-25] MEDS: hyDROXYzine 25 mg Capsule 50 MG PO (04:01)
[2024-12-25] MEDS: venlafaxine ER (24HR) 37.5 mg Capsule PO (05:05)
[2024-12-25] MEDS: venlafaxine ER (24HR) 150 mg Capsule PO (05:05)
[2024-12-25] MEDS: pantoprazole DR 40 mg Tablet PO ×2 (05:05→08:44)
[2024-12-25 06:55] LABS: Glucose Point of Care 203 mg/dL (70-110)
[2024-12-25] MEDS: budesonide 0.5 mg/2 mL Neb INHALATION (08:33)
[2024-12-25] MEDS: cefTRIAXone 1,000 mg SDV 1000 MG IVP (08:43)
[2024-12-25] MEDS: ropinirole 2 mg Tablet PO ×2 (08:44→14:46)
[2024-12-25] MEDS: insulin lispro 100 unit/1 mL SUBCUT ×2 (08:44→11:43)
[2024-12-25] MEDS: levothyroxine 25 mcg Tablet PO (08:44)
[2024-12-25] MEDS: FUROsemide 40 mg Tablet PO (08:44)
[2024-12-25] MEDS: metoprolol tartrate 25 mg Tablet PO (08:44)
[2024-12-25] MEDS: gabapentin 400 mg Capsule PO ×2 (08:44→14:46)
[2024-12-25] MEDS: predniSONE 20 mg Tablet 40 MG PO (08:44)
--- NOTE | 2024-12-25 09:13 | PM.DCS ---
Discharge Providers Date of Admission: 12/23/24 09:48 Date of Discharge: December 25, 2024 Attending Provider at Admission: Camilla Berger MD Attending Provider at Discharge: Wil Lo MD Primary Care Provider: Carole Hatfield MD Diagnoses at Discharge Discharge Diagnosis (1) Acute and chronic respiratory failure with hypercapnia: Status: Resolved (2) Acute exacerbation of chronic obstructive pulmonary disease: Status: Resolved (3) Congestive heart failure: Status: Resolved Reason for Visit Reason for Visit: sob Hospital Course Hospital Course This is a 69-year-old female with past medical history of COPD on 3 L, obstructive sleep apnea, CHF, CKD, who presents [facility] for shortness of breath Patient was admitted to [facility] for acute on chronic hypercapnic respiratory failure secondary to COPD, CHF, received IV diuresis, IV steroids, broad-spectrum antibiotic therapy, and overall clinically monitored. Patient overall clinically improved, will be discharged home with close follow-up with primary care provider as outpatient. On discharge patient is adamant about discharging home, although she does not have any family currently at home as they are medication, she does have friends that will check up on her daily Physical Exam Const: COMMON NORMALS: no acute distress and patient oriented x3 Resp: COMMON NORMALS: normal respiratory effort, No retractions, No use of accessory muscles and clear to auscultation bilaterally AUSCULTATION: clear to auscultation bilaterally Cardio: COMMON NORMALS: regular rate, regular rhythm, S1 normal heart sound present and S2 normal heart sound present RATE: regular rate RHYTHM: regular rhythm HEART SOUNDS: S1 normal heart sound present and S2 normal heart sound present GI: COMMON NORMALS: Normal to inspection, nondistended, normoactive bowel sounds present and non-tender Extremity: COMMON NORMALS: no pedal edema Neuro: COMMON NORMALS: patient oriented x3 Psych: COMMON NORMALS: mental status grossly normal Urinary Catheter Management: Garcia: Cath Placed During This Visit: yes Reason for Continuing Indwelling Catheter: Accurate Measurement of Urinary Output in Critically Ill Patients Urinary Catheter Date of Insertion: 12/23/24 Urinary Catheter Time of Insertion: 13:38 Discharge Data Studies Completed and Pending Completed Studies During Hospitalization Category Date Time Status XR chest 1V portable [id number] Stat Exams 12/23/24 08:08 Completed Pending at discharge Category Date Time Status Blood Culture Stat Lab 12/23/24 09:01 Results Radiology Impressions Chest X-Ray 12/23/24 08:08 IMPRESSION: Findings most consistent with congestive heart failure. Increased bibasilar opacities may be on the basis of atelectasis, airspace edema, or pneumonia in the appropriate clinical context. Follow-up chest x-rays are recommended. Laboratory Results WBC 13.58 10^3/uL (3.29-11.43) H 12/25/24 02:46 RBC 3.71 10^6/uL (3.85-5.65) L 12/25/24 02:46 Hgb 8.70 g/dL (11.27-16.99) L 12/25/24 02:46 Hct 30.2 % (36-47) L 12/25/24 02:46 MCV 81.4 fl (85-98) L 12/25/24 02:46 MCH 23.5 pg (27-33) L 12/25/24 02:46 MCHC 28.8 g/dL (30-55) L 12/25/24 02:46 RDW 21.5 % (12.1-15.1) H 12/25/24 02:46 Plt Count 318 10^3/cmm (157-399) 12/25/24 02:46 MPV 9.3 fL (7.4-10.4) 12/25/24 02:46 Neut % (Auto) 80.4 % 12/25/24 02:46 Lymph % (Auto) 14.4 % 12/25/24 02:46 [place] % (Auto) 4.6 % 12/25/24 02:46 Eos % (Auto) 0.1 % 12/25/24 02:46 Baso % (Auto) 0.1 % 12/25/24 02:46 Neut # (Auto) 10.91 10^3/uL (1.8-7.7) H 12/25/24 02:46 Lymph # (Auto) 2.0 10^3/uL (0.8-4.8) 12/25/24 02:46 [place] # (Auto) 0.6 10^3/uL (0.2-0.9) 12/25/24 02:46 Eos # (Auto) 0.0 10^3/uL (0.0-0.8) 12/25/24 02:46 Baso # (Auto) 0.0 10^3/uL (0.0-0.1) 12/25/24 02:46 Nucleated RBC % (auto) 0 % 12/25/24 02:46 Nucleated RBCs # 0.0 /100WBC 12/25/24 02:46 PT 13.50 SECONDS (12.1-14.9) 12/23/24 08:13 INR 0.97 (0.8-1.2) 12/23/24 08:13 D-Dimer 1.33 ug/mLFEU (0-0.59) H 12/24/24 04:55 Specimen Type Arterial 12/23/24 09:31 Sample Site Radial, left 12/23/24 09:31 ABG pH 7.33 (7.35-7.45) L 12/23/24 09:31 ABG pCO2 55.9 mmHg (35-45) H 12/23/24 09:31 ABG pO2 83.2 mmHg (80.0-100.0) 12/23/24 09:31 ABG PO2/FiO2 Ratio 237 12/23/24 09:31 ABG HCO3 29.1 mmol/L (22-26) H 12/23/24 09:31 ABG Base Excess 2.5 mmol/L (-2.0-2.0) H 12/23/24 09:31 Wilfredo Test Pos 12/23/24 09:31 Hematocrit 25.8 % (37-47) L 12/23/24 09:31 Hgb O2 Saturation 91.3 % (95-100) L 12/23/24 08:04 Carboxyhemoglobin 1.9 %THgb (0.4-20.1) 12/23/24 08:04 Methemoglobin 0.2 % (0.4-1.5) L 12/23/24 08:04 Total Hemoglobin 9.7 g/dL (12-16) L 12/23/24 08:04 O2 Delivery Device Bipap 12/23/24 09:31 O2 Liters/Min 15.0 % 12/23/24 08:04 FiO2 35.0 % 12/23/24 09:31 [employer]point Pens Assembler ID [place] 12/23/24 09:31 Sodium 144 mmol/L (136-145) 12/25/24 02:46 Potassium 3.7 mmol/L (3.5-5.1) 12/25/24 02:46 Chloride 101 mmol/L (98-107) 12/25/24 02:46 Carbon Dioxide 34 mmol/L (22-29) H 12/25/24 02:46 Anion Gap 12.7 (5-19) 12/25/24 02:46 BUN 24 mg/dL (8-23) H 12/25/24 02:46 Creatinine 0.8 mg/dL (0.5-0.9) 12/25/24 02:46 GFR Calculation 71.5 mL/min (90-130) L 12/25/24 02:46 Glucose 171 mg/dL (65-115) H 12/25/24 02:46 POC Glucose 203 mg/dL (70-110) H 12/25/24 06:33 Calculated Osmolality 306 mOsm/kg (285-295) H 12/25/24 02:46 Calcium 9.5 mg/dL (8.5-10.5) 12/25/24 02:46 Total Bilirubin 0.4 mg/dL (0.15-1.2) 12/25/24 02:46 AST 13 U/L (0-32) 12/25/24 02:46 ALT 38 U/L (0-33) H 12/25/24 02:46 Alkaline Phosphatase 82 U/L (35-105) 12/25/24 02:46 Troponin T Baseline 47 ng/L (0-10) H 12/23/24 08:13 Troponin T 120 Minute 53.89 ng/L (0-10) H 12/23/24 10:15 Delta Troponin T 6.89 ABS# (0-10) 12/23/24 10:15 Troponin T Hi Sens 6Hr 51.26 ng/L (0-10) H 12/23/24 14:05 Troponin T Hi Sens 6Hr Delta 4.26 ng/L (0-12) 12/23/24 14:05 NT-Pro-B Natriuret Pep 5505 pg/mL (0-125) H 12/23/24 08:13 Total Protein 6.3 g/dL (6.6-8.7) L 12/25/24 02:46 Albumin 3.6 g/dL (3.5-5.2) 12/25/24 02:46 Globulin 2.7 g/dL (1.3-4.6) 12/25/24 02:46 Adenovirus (PCR) Not detected (NOT DETECT) 12/23/24 15:52 C. pneumoniae DNA (PCR) Not detected (NOT DETECT) 12/23/24 15:52 Coronavirus 229E (PCR) Not detected (NOT DETECT) 12/23/24 15:52 Human Metapneumovir PCR Not detected (NOT DETECT) 12/23/24 15:52 Influenza A (H1) PCR Not detected (NOT DETECT) 12/23/24 15:52 Influ A (H1/09) PCR Not detected (NOT DETECT) 12/23/24 15:52 Influenza A (H3) PCR Not detected (NOT DETECT) 12/23/24 15:52 Influenza Type A (PCR) Not detected (NOT DETECT) 12/23/24 15:52 Influenza Type B (PCR) Not detected (NOT DETECT) 12/23/24 15:52 M. pneumoniae (PCR) Not detected (NOT DETECT) 12/23/24 15:52 Parainfluenza 1 (PCR) Not detected (NOT DETECT) 12/23/24 15:52 Parainfluenza 2 (PCR) Not detected (NOT DETECT) 12/23/24 15:52 Parainfluenza 3 (PCR) Not detected (NOT DETECT) 12/23/24 15:52 Parainfluenza 4 (PCR) Not detected (NOT DETECT) 12/23/24 15:52 RSV Type A (PCR) Not detected (NOT DETECT) 12/23/24 15:52 RSV Type B (PCR) Not detected (NOT DETECT) 12/23/24 15:52 Entero/Rhino (PCR) Not detected (NOT DETECT) 12/23/24 15:52 SARS-CoV-2 (PCR) Not detected (NOT DETECT) 12/23/24 15:52 Vitals Last Vital Signs Temp 98.1 F 12/25/24 08:00 Pulse 87 12/25/24 08:00 Resp 18 12/25/24 08:00 BP 185/98 12/25/24 08:00 Pulse Ox 96 12/25/24 08:00 O2 Del Method Nasal Cannula 12/25/24 08:00 O2 Flow Rate 3 12/25/24 07:24 FiO2 35 12/23/24 13:24 Discharge Plan Discharge Patient Disposition: Home Condition: Stable Prescriptions: Continued budesonide-formoterol [Symbicort] 160-4.5 mcg/actuation HFA aerosol inhaler 1 inh inhalation BID Qty: 10.2 5RF levothyroxine 25 mcg tablet 25 mcg PO DAILY Qty: 90 1RF venlafaxine [Effexor XR] 37.5 mg capsule,extended release 24hr 37.5 mg PO .morning Qty: 90 2RF Rx Instructions: Take one capsule every morning with 150 mg capsule, total dose 187.5 mg venlafaxine 150 mg capsule,extended release 24hr 150 mg PO .morning Qty: 90 2RF Rx Instructions: Take one capsule every morning with 37.5 mg capsule, total dose 187.5 mg ropinirole 2 mg tablet 2 mg PO TID Qty: 90 5RF omeprazole 20 mg capsule,delayed release(DR/EC) 20 mg PO QAM Qty: 90 1RF ferrous gluconate 324 mg (38 mg iron) tablet 324 mg PO BID Qty: 180 3RF hydroxyzine HCl 50 mg Tablet 50 mg PO BID PRN (Reason: Anxiety) tolterodine 2 mg capsule,extended release 24hr 2 mg PO QAM atorvastatin 10 mg tablet 10 mg PO BEDTIME albuterol sulfate 90 mcg/actuation HFA aerosol inhaler 2 puff INHALATION Q6H PRN (Reason: Shortness Of Breath) Qty: 6.7 0RF fluticasone propionate 50 mcg/actuation spray,suspension 1 spray INTRANASAL BID PRN (Reason: Nasal Congestion) loratadine 10 mg Tablet 10 mg PO DAILY metoprolol tartrate 25 mg Tablet 25 mg PO BID@0900,2100 Qty: 60 0RF Discontinued prednisone 10 mg tablet See Taper PO DIRECTED Qty: 42 0RF Taper: predniSONE 60-10 60 mg Daily for 2 Days and 0 Hour 50 mg Daily for 2 Days and 0 Hour 40 mg Daily for 2 Days and 0 Hour 30 mg Daily for 2 Days and 0 Hour 20 mg Daily for 2 Days and 0 Hour 10 mg Daily for 2 Days and 0 Hour Rx Instructions: see taper instructions No Action doxycycline hyclate 100 mg capsule 100 mg PO BID 10 Days Qty: 20 0RF aspirin 81 mg tablet 81 mg PO DAILY Qty: 90 0RF gabapentin 400 mg capsule See Rx Instructions .ROUTE .COMPLEX Qty: 270 0RF Dose Instruction: TAKE 1 CAPSULE ORALLY THREE TIMES DAILY Rx Instructions: TAKE 1 CAPSULE ORALLY THREE TIMES DAILY Januvia 100 mg tablet See Rx Instructions .ROUTE .COMPLEX Qty: 90 1RF Dose Instruction: TAKE 1 TABLET BY MOUTH EVERY DAY FOR DIABETES Rx Instructions: TAKE 1 TABLET BY MOUTH EVERY DAY FOR DIABETES Discharge Orders: Discharge Order (Routine); Ordered 12/25/24 Ordered By: Wil Lo Other Ambulatory Orders: DME: Willie (Order) Location: None Selected Ordered By: Wil Lo Referrals: Carole Hatfield MD [Primary Care Provider, [facility]] - 12/27/24 1:30 pm Referral Note: Discharge Diet: Cardiac Discharge Activity: Resume usual activity Patient Instructions: Benzonatate (By mouth), Doxycycline (By mouth), Prednisone (By mouth), Using Oxygen at Home (GEN), CHF Stoplight, Opioid Safety Discharge Attestations Time Spent in Discharge Care*: greater than 30 min Status at Discharge: Cognitive status at discharge: cognitively intact, Behavioral status at discharge: cooperative, Quality Metrics Clinical Quality Measures [ No reported AMI, CVA or VTE this stay] Coding Level of Care Code 40943 Total time (in minutes) for Discharge: 45 Diagnoses Acute and chronic respiratory failure with hypercapnia J96.22 Acute exacerbation of chronic obstructive pulmonary disease J44.1 Congestive heart failure I50.9
--- NOTE | 2024-12-25 11:01 | PC.NURSE ---
Discharge delayed. Waiting or oxygen to be delivered and medicaid ride set up.
[2024-12-25 11:24] LABS: Glucose Point of Care 194 mg/dL (70-110)
--- NOTE | 2024-12-25 14:35 | PC.NURSE ---
Discharge instructions provided to pt. No questions or concerns voiced at this time. Awaiting [facility] who state they will be here between [phone] to shrimp picker pt
--- NOTE | 2024-12-25 16:24 | PC.NURSE ---
Ready Transport here to picker tender pt. To front doors via wheelchair with all belongings.
== END 2024-12-25 16:25 | disposition home or self-care (01) | DRG 291 ==
LOC: ER 10:01 → ER IP 10:33 → MEDSURG 15:12
PROVIDERS: Admitting Provider Student in an Organized Health Care Education/Training Program; Emergency Provider Emergency Medicine; PCP Family Medicine; Visit Provider Family Medicine
DX: I13.0 Hypertensive heart and chronic kidney disease with heart failure and stage 1 through stage 4 chronic kidney disease, or unspecified chronic kidney disease (principal); I50.33 Acute on chronic diastolic (congestive) heart failure; J96.22 Acute and chronic respiratory failure with hypercapnia; J44.1 Chronic obstructive pulmonary disease with (acute) exacerbation; F31.81 Bipolar II disorder; N18.30 Chronic kidney disease, stage 3 unspecified; E11.22 Type 2 diabetes mellitus with diabetic chronic kidney disease; G47.33 Obstructive sleep apnea (adult) (pediatric); F17.290 Nicotine dependence, other tobacco product, uncomplicated; E03.9 Hypothyroidism, unspecified; F17.210 Nicotine dependence, cigarettes, uncomplicated; E66.9 Obesity, unspecified; Z68.33 Body mass index [BMI] 33.0-33.9, adult; I69.993 Ataxia following unspecified cerebrovascular disease; G89.29 Other chronic pain; M54.9 Dorsalgia, unspecified; M19.90 Unspecified osteoarthritis, unspecified site; E78.5 Hyperlipidemia, unspecified; M48.062 Spinal stenosis, lumbar region with neurogenic claudication; K21.9 Gastro-esophageal reflux disease without esophagitis; F60.3 Borderline personality disorder; J43.1 Panlobular emphysema; F43.12 Post-traumatic stress disorder, chronic; Z99.81 Dependence on supplemental oxygen
CPT/HCPCS: 36415; 36416; 36600; 51702; 71045; 80053; 82803; 82805; 82962; 83880; 84484; 85025; 85378; 85610; 87040; 87486; 87581; 87633; 93005; 94640; 94660; 94760; 96365; 96372; 96375; 97116; 97161; 99291; J0456; J0696; J1815; J1938; J2919; J7050; J7512; J7626; J9999

== ENCOUNTER → 2025-01-04 09:14 | Outpatient (BNVA) | payer MEDICARE, MEDICAID, SELFPAY ==
[2024-10-30 09:59] VITALS: BP 130/87; BMI 35.1
== END ==
PROVIDERS: PCP Family Medicine; Visit Provider Family Medicine
DX: M25.561 Pain in right knee (principal); I15.2 Hypertension secondary to endocrine disorders; E78.5 Hyperlipidemia, unspecified; E11.69 Type 2 diabetes mellitus with other specified complication; E66.9 Obesity, unspecified; K21.9 Gastro-esophageal reflux disease without esophagitis; E11.22 Type 2 diabetes mellitus with diabetic chronic kidney disease; N18.30 Chronic kidney disease, stage 3 unspecified; N39.0 Urinary tract infection, site not specified; D50.9 Iron deficiency anemia, unspecified; I69.993 Ataxia following unspecified cerebrovascular disease; E11.42 Type 2 diabetes mellitus with diabetic polyneuropathy; G25.81 Restless legs syndrome
CPT/HCPCS: 83540; 84550; 85025

== ENCOUNTER 2025-01-17 15:03 | Outpatient (CLI) | payer MEDICARE, MEDICAID, SELFPAY ==
[2024-10-30 09:59] VITALS: BP 130/87; BMI 35.1
--- NOTE | 2025-01-17 15:30 | USCV_ITS ---
Brandon Camacho Age: 69 Gender: F : 1955 Exam Date: 01/17/2025 15:37 Ordering Phys: Carole Hatfield MD Technologist: ALBERT [place] [facility] [place] Pain HISTORY: Lower extremity pain. PROCEDURES: Venous duplex imaging was performed in only the right lower extremity. The following venous structures were evaluated: common femoral vein, profunda vein, proximal portion of the greater saphenous vein, superficial femoral vein, and the popliteal vein. In addition, the posterior tibial and peroneal trunk were evaluated. Serial compression, augmentation maneuvers, and spectral Doppler flow evaluation were performed. FINDINGS: No evidence of DVT seen in any vessel visualized at this time. CONCLUSIONS No evidence of right lower extremity DVT. Omar Gr MD (Electronically Signed) Final Date: 17 January 2025 17:48 S
== END 2025-01-17 15:04 | disposition home or self-care (01) ==
LOC: RAD 15:06
PROVIDERS: PCP Family Medicine; Visit Provider Family Medicine
DX: M79.604 Pain in right leg (principal); M79.89 Other specified soft tissue disorders
CPT/HCPCS: 93971

== ENCOUNTER → 2025-01-21 16:10 | Outpatient (BNVA) | payer MEDICARE, SELFPAY ==
[2024-10-30 09:59] VITALS: BP 130/87; BMI 35.1
== END ==
PROVIDERS: PCP Family Medicine; Visit Provider Family Medicine
DX: I15.2 Hypertension secondary to endocrine disorders (principal); E11.42 Type 2 diabetes mellitus with diabetic polyneuropathy; R00.0 Tachycardia, unspecified; E11.69 Type 2 diabetes mellitus with other specified complication; E66.9 Obesity, unspecified; E11.22 Type 2 diabetes mellitus with diabetic chronic kidney disease; N18.30 Chronic kidney disease, stage 3 unspecified
CPT/HCPCS: 80048; 83036

== ENCOUNTER 2025-02-17 17:39 | Emergency (ER) | payer MEDICARE, MEDICAID, SELFPAY ==
[2024-10-30 09:59] VITALS: BP 130/87; BMI 35.1
[2025-02-17 17:40] VITALS: BP 149/84; PULSE 100; TEMP 36.8; O2SAT 92
--- OUTSIDE RECORDS SUMMARY | 2025-02-17 17:43 | XMS_ITS | Clinical Summary ---
Author Organization [facility] Address [address] Attn: Epic Prelude ADT AMOL OSBORN [address] Care Team Providers Care Agricultural Loan Officer Name Role Phone Martha Chi MD Primary [...] pelvic fract ures without disruption of pelvic hughes 07/17/2022 Immunizations Immunization Administration Dates Next Due [...] on file Legal Sex Female 3:43 AM WELDER FABRICATOR Gender Identity Not on file Sexual Orientation Not on file Last Filed Vital Signs Vital Sign Reading Time Taken Comments Blood Pressure 160/90 09/23/2022 10:07 AM WELDER FABRICATOR Provider notified. Patient states has a headache but feels fine other than that. She takes BP medicine and has taken it this morning. Patient was notified to contact her PCP. Pulse 62 09/23/2022 9:13 AM WELDER FABRICATOR Temperature 36.6 C (97.8 F) 08/25/2022 5:08 AM WELDER FABRICATOR Respiratory Rate 18 08/25/2022 5:08 AM WELDER FABRICATOR Oxygen Saturation 98% 08/25/2022 5:0 8 AM WELDER FABRICATOR Inhaled Oxygen Concentration - - Weight 113.4 kg (250 lb) 09/23/2022 9:1 3 AM WELDER FABRICATOR Height 172.7 cm (5' 8 ) 08/04/2022 8:53 AM WELDER FABRICATOR Body Mass Index 38.01 08/04/2022 8:53 AM WELDER FABRICATOR Plan of Treatment Health Maintenance Due Date Last Done Comments BREAST CANCER SCREENING 1997 COLORECTAL SCREENING 2002 Colorectal Cancer Screening 2002 FIT-DNA Q 3 years 2002 FIT/FOBT Q 1 year 2002 Flex Sig/CT Colonography Q 5 years 2002 ZOSTER VACCINE (2 of 2) 11/16/2019 09/21/2019 PNEUMOCOCCAL VACCINE 50+ YEA RS (2 of 2 - PCV) 06/18/2022 06/18/2021 OSTEOPOROSIS SCREENING 2022 INFLUENZA VACCINE (#1) 2025 2, 06/18/2021, 06/14/2018, Additional history exists DTAP/TDAP/TD VACCINES (3 - T d or Tdap) 09/21/2029 09/21/2019, 03/31/2015 RSV VACCINE (60+ or ) (1 - 1-dose 75+ series) 2032 Medical Devices Implanted Type Area Bilingual Executive Assistant Device Identifier Shelf Expiration Date Model / Serial / Lot Screw Dax Ft [id number] [id number] - [id number] Implanted:Qty: 1 on 07/19/2022 by Yair Ferreira MD at [facility] Screw Right: Hip [employer]- [employer] SYN[employer]ES [id number] / / Washer 13.0mm 219.99 - [id number] Implanted:Qty: 1 on 07/19/2022 by Yair Ferreira MD at [facility] Washer Right: Hip [employer]- DEPU[employer] SYNTHES 219.99 / / Insurance [place]ICAID [place] [facility] [place] Advance Directives For more information, please contact: [phone] * Full Code (Latest Code Status on File) Date Activated Date Inactivated Comments 07/23/2022 5:07 PM 08/25/2022 5:59 PM * Full Code Date Activated Date Inactivated Comments 07/17/2022 3:16 AM 07/19/2022 6:46 PM Care Teams Agricultural Loan Officer Relationship Specialty Start Date End Date Martha Chi MD [address] [place] [phone] PCP - General Family Practice 10/09/19
[2025-02-17 19:00] VITALS: BP 130/77; PULSE 91; O2SAT 92
--- NOTE | 2025-02-17 19:05 | XRR_ITS ---
PROCEDURE INFORMATION: Exam: XR Left Wrist Exam date and time: 02/17/2025 7:36 PM Age: 69 years old Clinical indication: Left; L wrist pain post fall today. ; Additional info: Fall wrist pain TECHNIQUE: Imaging protocol: Radiologic exam of the left wrist. Views: 3 or more views. COMPARISON: CR (WRIST PA, WRIST, WRIST PA) 04/13/2022 1:31 PM FINDINGS: Bones/joints: Normal mineralization and alignment. Nondisplaced radial styloid fracture. Soft tissues: Mild soft tissue swelling. XR/XR wrist LT min 3V* [id number] IMPRESSION: Nondisplaced radial styloid fracture.
--- NOTE | 2025-02-17 19:05 | XRR_ITS ---
PROCEDURE INFORMATION: Exam: XR Left Knee Exam date and time: 02/17/2025 7:31 PM Age: 69 years old Clinical indication: Bilateral knee pain post fall today; Additional info: Fall knee pain TECHNIQUE: Imaging protocol: Radiologic exam of the left knee. Views: 3 views. COMPARISON: CR XR knees AP WB w BI lmt ORTH 04/13/2022 1:27 PM FINDINGS: Bones/joints: Normal mineralization and alignment. No evidence of acute fracture or dislocation. Ftxpiidj-ya-rjrdey degenerative change of the medial joint space and mild degenerative change of the lateral space. Questionable trace effusion. Soft tissues: The soft tissues are within normal limits. XR/XR knee LT 3V* [id number] IMPRESSION: No evidence of acute fracture or dislocation.
--- NOTE | 2025-02-17 19:05 | XRR_ITS ---
PROCEDURE INFORMATION: Exam: XR Right Knee Exam date and time: 02/17/2025 7:33 PM Age: 69 years old Clinical indication: Bilateral knee pain post fall today; Additional info: Fall knee pain TECHNIQUE: Imaging protocol: Radiologic exam of the right knee. Views: 3 views. COMPARISON: CR XR knees AP WB w RT lmt ORTH 10/25/2022 9:35 AM FINDINGS: Bones/joints: Normal mineralization and alignment. No evidence of acute fracture or dislocation. No joint effusion. Soft tissues: The soft tissues are within normal limits. XR/XR knee RT 3V* [id number] IMPRESSION: No evidence of acute fracture or dislocation.
--- NOTE | 2025-02-17 19:05 | XRR_ITS ---
PROCEDURE INFORMATION: Exam: XR Left Ribs with PA Chest Exam date and time: 02/17/2025 7:23 PM Age: 69 years old Clinical indication: Chest wall pain; Left; Lower lt lateral rib pain post fall today; Worse with inspiration; Additional info: Fall rib pain TECHNIQUE: Imaging protocol: Radiologic exam of the left ribs with PA chest. Views: 3 views COMPARISON: CR XR chest 1V portable [id number] 12/23/2024 8:16 AM FINDINGS: Lungs: No pulmonary consolidation. Stable mild interstitial prominence. Pleural spaces: No pleural effusion or pneumothorax. Heart/Mediastinum: The heart is magnified. Bones/joints: No plain film evidence displaced left rib fracture. No acute osseous abnormalities are seen. XR/XR ribs LT mn 3V w CXR1V [id number] IMPRESSION: 1. No acute cardiopulmonary disease. 2. No plain film evidence displaced left rib fracture.
[2025-02-17] MEDS: oxyCODONE-APAP 5-325 mg Tablet 2 TAB PO (19:14)
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
[2025-02-17 19:30] VITALS: BP 133/77; PULSE 90; O2SAT 90
[2025-02-17 20:00] VITALS: BP 133/73; PULSE 86; O2SAT 96
[2025-02-17 20:30] VITALS: BP 142/82; PULSE 86; O2SAT 97
[2025-02-17 20:32] VITALS: BP 142/82; PULSE 88; O2SAT 98
== END 2025-02-17 20:39 | disposition home or self-care (01) ==
PROVIDERS: Emergency Provider Emergency Medicine; PCP Family Medicine
DX: S52.515A Nondisplaced fracture of left radial styloid process, initial encounter for closed fracture (principal); S80.02XA Contusion of left knee, initial encounter; S80.01XA Contusion of right knee, initial encounter; S20.219A Contusion of unspecified front wall of thorax, initial encounter; Z79.82 Long term (current) use of aspirin; F17.290 Nicotine dependence, other tobacco product, uncomplicated; J44.9 Chronic obstructive pulmonary disease, unspecified; Z86.73 Personal history of transient ischemic attack (TIA), and cerebral infarction without residual deficits; E11.22 Type 2 diabetes mellitus with diabetic chronic kidney disease; I12.9 Hypertensive chronic kidney disease with stage 1 through stage 4 chronic kidney disease, or unspecified chronic kidney disease; N18.30 Chronic kidney disease, stage 3 unspecified; W19.XXXA Unspecified fall, initial encounter
CPT/HCPCS: 71101; 73110; 73562; 99284; J9999

== ENCOUNTER 2025-02-20 22:37 | Emergency (ER) | payer MEDICARE, MEDICAID, SELFPAY ==
[2024-10-30 09:59] VITALS: BP 130/87; BMI 35.1
--- OUTSIDE RECORDS SUMMARY | 2025-02-20 22:48 | XMS_ITS | Clinical Summary ---
Author Organization [facility] Address [address] Attn: Epic Prelude ADT AMOL OSBORN [id number] Care Team Providers Care Data Solutions Architect Name Role Phone Martha Chi MD Primary [...] pelvic fract ures without disruption of pelvic cantwell 07/17/2022 Immunizations Immunization Administration Dates Next Due [...] on file Legal Sex Female 3:43 AM NETWORK SUPPORT ANALYST Gender Identity Not on file Sexual Orientation Not on file Last Filed Vital Signs Vital Sign Reading Time Taken Comments Blood Pressure 160/90 09/23/2022 10:07 AM NETWORK SUPPORT ANALYST Provider notified. Patient states has a headache but feels fine other than that. She takes BP medicine and has taken it this morning. Patient was notified to contact her PCP. Pulse 62 09/23/2022 9:13 AM NETWORK SUPPORT ANALYST Temperature 36.6 C (97.8 F) 08/25/2022 5:08 AM NETWORK SUPPORT ANALYST Respiratory Rate 18 08/25/2022 5:08 AM NETWORK SUPPORT ANALYST Oxygen Saturation 98% 08/25/2022 5:0 8 AM NETWORK SUPPORT ANALYST Inhaled Oxygen Concentration - - Weight 113.4 kg (250 lb) 09/23/2022 9:1 3 AM NETWORK SUPPORT ANALYST Height 172.7 cm (5' 8 ) 08/04/2022 8:53 AM NETWORK SUPPORT ANALYST Body Mass Index 38.01 08/04/2022 8:53 AM NETWORK SUPPORT ANALYST Plan of Treatment Health Maintenance Due Date [...] series) 2032 Medical Devices Implanted Type Area Raised Printer Device Identifier Shelf Expiration Date Model / Serial / Lot Screw Dax Ft [id number] 209.770s - [id number] Implanted:Qty: 1 on 07/19/2022 by Yair Ferreira MD at [facility] Screw Right: Hip [employer]- [employer] 209.770S / / Washer 13.0mm 219.99 - [id number] Implanted:Qty: 1 on 07/19/2022 by Yair Ferreira MD at [facility] Washer Right: Hip [employer]- [employer]TH[employer] 219.99 / / Insurance [place]ICAID [place] [facility] [place] Advance Directives For more information, please contact: [phone] * Full Code (Latest Code Status on File) Date Activated Date Inactivated Comments 07/23/2022 5:07 PM 08/25/2022 5:59 PM * Full Code Date Activated Date Inactivated Comments 07/17/2022 3:16 AM 07/19/2022 6:46 PM Care Teams Data Solutions Architect Relationship Specialty Start Date End Date Martha Chi MD [address] [place] [id number] PCP - General Family Practice 10/09/19
[2025-02-20 22:49] VITALS: BP 95/64; PULSE 74; RESP 17; TEMP 36.8; O2SAT 91; BMI 38.7
[2025-02-21 01:56] VITALS: BP 126/76; PULSE 73; O2SAT 91
--- NOTE | 2025-02-21 02:57 | CTR_ITS ---
PROCEDURE INFORMATION: Exam: CT Chest With Contrast; Diagnostic Exam date and time: 02/21/2025 3:54 AM Age: 69 years old Clinical indication: Injury or trauma; Fall; Abdominal wall; Blunt trauma (contusions or hematomas); Prior surgery; Surgery date: 6+ months; Surgery type: Pelvic pin; Additional info: Trauma, left anterior rib pain, left upper quad abd pain TECHNIQUE: Imaging protocol: Diagnostic computed tomography of the chest with contrast. Radiation optimization: All CT scans at this facility use at least one of these dose optimization techniques: automated exposure control; mA and/or kV adjustment per patient size (includes targeted exams where dose is matched to clinical indication); or iterative reconstruction. Contrast material: OMNI 350; Contrast volume: 100 ml; Contrast route: INTRAVENOUS (IV); COMPARISON: CT angio chest PE protcl [id number] 11/19/2024 3:21 AM RADIATION DOSE METRICS: Total DLP (mGy-cm): 681.2 FINDINGS: Lungs: Interval stability is noted. There is a 9 mm well circumscribed central nodule in the right upper lobe (series 4, image 21) which was also present on the prior examination. Also noted is a stable subpleural nodule in the right upper lobe measuring 4 mm. There are mild atelectatic changes at the dependent aspect of the lung bases. Pleural spaces: Unremarkable. No pneumothorax. No pleural effusion. The previously noted pleural effusions have resolved. Heart: Mild coronary artery calcification is present. Mild cardiomegaly. No pericardial effusion. Lymph nodes: There are stable enlarged lymph nodes which appear to be stable on interval comparison in the retrovascular pretracheal space. Stable left hilar adenopathy is also noted. Vasculature: Unremarkable. No aortic aneurysm. Bones/joints: Thoracic spondylosis. There is a surgical screw extending through the sacroiliac joints entering through the right side. No acute fracture. Soft tissues: There is periumbilical infiltrative changes associated with the subcutaneous tissues. Nodules Detected on CT Images: From the Fleischner Society 2017. Radiology. 2017;284(1):228-243. 5. There are stable mediastinal and left hilar lymph nodes. PROCEDURE INFORMATION: Exam: CT Abdomen And Pelvis With Contrast Exam date and time: 02/21/2025 3:54 AM Age: 69 years old Clinical indication: Injury or trauma; Fall; Abdominal wall; Blunt trauma (contusions or hematomas); Prior surgery; Surgery date: 6+ months; Surgery type: Pelvic pin; Additional info: Trauma, left anterior rib pain, left upper quad abd pain TECHNIQUE: Imaging protocol: Computed tomography of the abdomen and pelvis with contrast. Radiation optimization: All CT scans at this facility use at least one of these dose optimization techniques: automated exposure control; mA and/or kV adjustment per patient size (includes targeted exams where dose is matched to clinical indication); or iterative reconstruction. Contrast material: OMNI 350; Contrast volume: 100 ml; Contrast route: INTRAVENOUS (IV); COMPARISON: CT angio chest PE protcl [id number] 11/19/2024 3:21 AM RADIATION DOSE METRICS: Total DLP (mGy-cm): 1041.8 FINDINGS: Liver: Normal. No mass. Gallbladder and biliary ducts: Normal. No calcified stones. No ductal dilation. Pancreas: Normal. No ductal dilation. Spleen: Normal. No splenomegaly. Adrenal glands: Normal. No mass. Kidneys and ureters: Normal. No hydronephrosis. Stomach and bowel: There is a moderate volume of fecal matter on the right side of the colon. No obstruction. Appendix: No evidence of appendicitis. Intraperitoneal space: Unremarkable. No free air. No significant fluid collection. Vasculature: Atherosclerotic calcific plaque is noted primarily in the infrarenal abdominal aorta extending into the iliac vessels. No abdominal aortic aneurysm. Lymph nodes: Unremarkable. No enlarged lymph nodes. Urinary bladder: Unremarkable as visualized. Reproductive: Unremarkable as visualized. Bones/joints: There is an old healed fracture of the right ischium. No acute fracture. Soft tissues: Periumbilical infiltrative changes associated with the subcutaneous tissues is noted. CT/CT chest abdpel w/*[id number] IMPRESSION: 1. There is no evidence of acute traumatic injury. 2. Stable pulmonary nodules in the right upper lobe are noted. Interval stability dating back to 09/13/2024 is noted. 3. Follow-up examination in 6 months is recommended. 4. Shaheen Chavira, et al. Guidelines for Management of Incidental Pulmonary IMPRESSION: 1. There is some infiltration associated with the periumbilical subcutaneous tissues. This may be posttraumatic in nature representing subcutaneous contusion given the provided history. Alternatively this may represent evidence of cellulitis. 2. The examination is otherwise unremarkable. Incidental findings are detailed in the body of the report.
[2025-02-21 03:25] LABS: Hematocrit 33.0 % (36-47); Hemoglobin 9.30 g/dL (11.27-16.99); Mean Corpuscular HGB Conc 28.2 g/dL (30-55); Mean Corpuscular Hemoglobin 23.0 pg (27-33); Mean Corpuscular Volume 81.7 fl (85-98); Nucleated Red Blood Cells % 0 %; Platelet Count 303 10^3/cmm (157-399); Red Blood Count 4.04 10^6/uL (3.85-5.65); White Blood Count 8.49 10^3/uL (3.29-11.43)
[2025-02-21] MEDS: HYDROmorphone 0.5 MG/0.5 ML INJ IVP (03:38)
[2025-02-21 03:39] VITALS: BP 133/84; PULSE 71; RESP 18; O2SAT 94
[2025-02-21 03:45] LABS: Alanine Aminotransferase 8 U/L (0-33); Albumin Level 3.6 g/dL (3.5-5.2); Alkaline Phosphatase 84 U/L (35-105); Anion Gap 13.5 (5-19); Aspartate Amino Transferase 10 U/L (0-32); Blood Urea Nitrogen 11 mg/dL (8-23); Calcium 9.5 mg/dL (8.5-10.5); Carbon Dioxide 30 mmol/L (22-29); Chloride 101 mmol/L (98-107); Creatinine Clr Calc Pharmacy 81.0159; Globulin 3.4 g/dL (1.3-4.6); Glucose 120 mg/dL (65-115); Osmolality Calculated 293 mOsm/kg (285-295); Potassium 3.5 mmol/L (3.5-5.1); Sodium 141 mmol/L (136-145); Total Protein 7.0 g/dL (6.6-8.7)
[2025-02-21] MEDS: iohexol 350 mg/mL 500 mL Btl (per mL) IV (03:50)
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
[2025-02-21 05:12] VITALS: BP 143/61; PULSE 76; RESP 18; O2SAT 93
== END 2025-02-21 05:13 | disposition home or self-care (01) ==
PROVIDERS: Emergency Provider Student in an Organized Health Care Education/Training Program; PCP Family Medicine
DX: Z03.89 Encounter for observation for other suspected diseases and conditions ruled out (principal); R10.10 Upper abdominal pain, unspecified; R07.89 Other chest pain; E03.9 Hypothyroidism, unspecified; E11.22 Type 2 diabetes mellitus with diabetic chronic kidney disease; N18.30 Chronic kidney disease, stage 3 unspecified; E78.5 Hyperlipidemia, unspecified; E66.01 Morbid (severe) obesity due to excess calories; Z68.38 Body mass index [BMI] 38.0-38.9, adult; I12.9 Hypertensive chronic kidney disease with stage 1 through stage 4 chronic kidney disease, or unspecified chronic kidney disease; J44.9 Chronic obstructive pulmonary disease, unspecified; K21.9 Gastro-esophageal reflux disease without esophagitis; G47.33 Obstructive sleep apnea (adult) (pediatric); E11.42 Type 2 diabetes mellitus with diabetic polyneuropathy; F17.290 Nicotine dependence, other tobacco product, uncomplicated; Z79.899 Other long term (current) drug therapy; Z88.5 Allergy status to narcotic agent; Z88.0 Allergy status to penicillin; Z88.8 Allergy status to other drugs, medicaments and biological substances; Z88.2 Allergy status to sulfonamides; R29.6 Repeated falls
CPT/HCPCS: 36415; 71260; 74177; 80053; 85025; 96374; 99285; J1171

== ENCOUNTER → 2025-03-12 12:59 | Outpatient (BNVA) | payer MEDICARE, MEDICAID, SELFPAY ==
[2024-10-30 09:59] VITALS: BP 130/87; BMI 35.1
== END ==
PROVIDERS: PCP Family Medicine; Visit Provider Orthopaedic Surgery
DX: S62.102A Fracture of unspecified carpal bone, left wrist, initial encounter for closed fracture (principal); M25.561 Pain in right knee; W01.0XXA Fall on same level from slipping, tripping and stumbling without subsequent striking against object, initial encounter
CPT/HCPCS: 73110; 73560; 73565; 99203

== ENCOUNTER 2025-03-26 09:03 | Emergency (ER) | payer MEDICARE, MEDICAID, SELFPAY ==
[2024-10-30 09:59] VITALS: BP 130/87; BMI 35.1
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
--- OUTSIDE RECORDS SUMMARY | 2025-03-26 09:07 | XMS_ITS | Clinical Summary ---
Author Organization [facility] Address [address] Attn: Epic Prelude ADT AMOL OSBORN [id number] Care Team Providers Care Program Associate Name Role Phone Martha Chi MD Primary [...] pelvic fract ures without disruption of pelvic [place] 07/17/2022 Immunizations Immunization Administration Dates Next Due [...] on file Legal Sex Female 3:43 AM GARMENT SORTER Gender Identity Not on file Sexual Orientation Not on file Last Filed Vital Signs Vital Sign Reading Time Taken Comments Blood Pressure 160/90 09/23/2022 10:07 AM GARMENT SORTER Provider notified. Patient states has a headache but feels fine other than that. She takes BP medicine and has taken it this morning. Patient was notified to contact her PCP. Pulse 62 09/23/2022 9:13 AM GARMENT SORTER Temperature 36.6 C (97.8 F) 08/25/2022 5:08 AM GARMENT SORTER Respiratory Rate 18 08/25/2022 5:08 AM GARMENT SORTER Oxygen Saturation 98% 08/25/2022 5:0 8 AM GARMENT SORTER Inhaled Oxygen Concentration - - Weight 113.4 kg (250 lb) 09/23/2022 9:1 3 AM GARMENT SORTER Height 172.7 cm (5' 8 ) 08/04/2022 8:53 AM GARMENT SORTER Body Mass Index 38.01 08/04/2022 8:53 AM GARMENT SORTER Plan of Treatment Health Maintenance Due Date [...] series) 2032 Medical Devices Implanted Type Area Beverage Specialist Device Identifier Shelf Expiration Date Model / Serial / Lot Screw Dax Ft [id number] - [id number] Implanted:Qty: 1 on 07/19/2022 by Yair Ferreira MD at [facility] Screw Right: Hip [employer] [id number] / / Washer 13.0mm 219.99 - [id number] Implanted:Qty: 1 on 07/19/2022 by Yair Ferreira MD at [facility] Washer Right: Hip [employer] 219.99 / / Insurance [place] [facility] [place] Advance Directives For more information, please contact: [phone] * Full Code (Latest Code Status on File) Date Activated Date Inactivated Comments 07/23/2022 5:07 PM 08/25/2022 5:59 PM * Full Code Date Activated Date Inactivated Comments 07/17/2022 3:16 AM 07/19/2022 6:46 PM Care Teams Program Associate Relationship Specialty Start Date End Date Martha Chi MD [address] [place] [id number] PCP - General Family Practice 10/09/19
[2025-03-26 09:12] VITALS: BP 157/105; PULSE 103; RESP 18; TEMP 36.7; O2SAT 92; BMI 34.2
[2025-03-26 09:25] LABS: Hematocrit 40.5 % (36-47); Hemoglobin 11.80 g/dL (11.27-16.99); Mean Corpuscular HGB Conc 29.1 g/dL (30-55); Mean Corpuscular Hemoglobin 24.5 pg (27-33); Mean Corpuscular Volume 84.0 fl (85-98); Nucleated Red Blood Cells % 0 %; Platelet Count 234 10^3/cmm (157-399); Red Blood Count 4.82 10^6/uL (3.85-5.65); White Blood Count 8.25 10^3/uL (3.29-11.43)
[2025-03-26 09:40] LABS: Alanine Aminotransferase 14 U/L (0-33); Albumin Level 3.9 g/dL (3.5-5.2); Alkaline Phosphatase 106 U/L (35-105); Anion Gap 15.5 (5-19); Aspartate Amino Transferase 20 U/L (0-32); Blood Urea Nitrogen 16 mg/dL (8-23); Calcium 10.0 mg/dL (8.5-10.5); Carbon Dioxide 26 mmol/L (22-29); Chloride 101 mmol/L (98-107); Creatinine Clr Calc Pharmacy 85.2791; Globulin 3.4 g/dL (1.3-4.6); Glucose 237 mg/dL (65-115); Osmolality Calculated 297 mOsm/kg (285-295); Potassium 3.5 mmol/L (3.5-5.1); Sodium 139 mmol/L (136-145); Total Protein 7.3 g/dL (6.6-8.7)
[2025-03-26] MEDS: diphenhydrAMINE 50 mg/mL SDV 1mL 25 MG IVP (10:16)
[2025-03-26 12:15] VITALS: BP 164/94; PULSE 96; O2SAT 94
== END 2025-03-26 12:15 | disposition home or self-care (01) ==
PROVIDERS: Emergency Provider Family Medicine; PCP Family Medicine
DX: R51.9 Headache, unspecified (principal); I10 Essential (primary) hypertension; Z79.82 Long term (current) use of aspirin; F17.290 Nicotine dependence, other tobacco product, uncomplicated; E11.22 Type 2 diabetes mellitus with diabetic chronic kidney disease; I12.9 Hypertensive chronic kidney disease with stage 1 through stage 4 chronic kidney disease, or unspecified chronic kidney disease; N18.30 Chronic kidney disease, stage 3 unspecified; J44.9 Chronic obstructive pulmonary disease, unspecified; Z86.73 Personal history of transient ischemic attack (TIA), and cerebral infarction without residual deficits; E78.5 Hyperlipidemia, unspecified
CPT/HCPCS: 36415; 80053; 85025; 96374; 96375; 99284; J0780; J1200; J1885

== ENCOUNTER → 2025-05-20 15:37 | Outpatient (BNVA) | payer MEDICARE, MEDICAID, SELFPAY ==
[2025-05-20 15:46] VITALS: BP 130/87; BMI 35.1
== END ==
PROVIDERS: PCP Family Medicine; Visit Provider Family Medicine
DX: E11.69 Type 2 diabetes mellitus with other specified complication (principal); E66.9 Obesity, unspecified; D50.0 Iron deficiency anemia secondary to blood loss (chronic); M79.604 Pain in right leg; M79.89 Other specified soft tissue disorders; I15.2 Hypertension secondary to endocrine disorders; E11.42 Type 2 diabetes mellitus with diabetic polyneuropathy
CPT/HCPCS: 80048; 82607; 83036; 83540; 85025